=== PATIENT | female | born 1955 | race Two or more races ===

== ENCOUNTER → 2017-10-09 | Outpatient (CLI) | payer OTHER ==
[2017-10-09 07:42] LABS: ANION GAP 10 MEQ/L (8-16); BLOOD UREA NITROGEN 21 MG/DL (7-18); CALCIUM LEVEL 9.2 MG/DL (8.8-10.2); CARBON DIOXIDE LEVEL 29 MEQ/L (21-32); CHLORIDE LEVEL 105 MEQ/L (98-107); CREATININE FOR GFR 0.92 MG/DL (0.55-1.30); GLOMERULAR FILTRATION RATE > 60.0 (>45); GLUCOSE, FASTING 133 MG/DL (70-100); POTASSIUM SERUM 3.3 MEQ/L (3.5-5.1); SODIUM LEVEL 144 MEQ/L (136-145)
[2017-10-09 08:53] LABS: ESTIMATED AVERAGE GLUCOSE 131 MG/DL (60-110); HEMOGLOBIN A1c 6.2 %
== END ==
LOC: M LAB 06:09
DX: Z13.1 Encounter for screening for diabetes mellitus (principal); I10 Essential (primary) hypertension
CPT/HCPCS: 83036

== ENCOUNTER → 2017-10-12 | Outpatient (CLI) | payer OTHER ==
[2017-10-12 20:50] LABS: ANION GAP 10 MEQ/L (8-16); BLOOD UREA NITROGEN 20 MG/DL (7-18); CALCIUM LEVEL 8.6 MG/DL (8.8-10.2); CARBON DIOXIDE LEVEL 29 MEQ/L (21-32); CHLORIDE LEVEL 103 MEQ/L (98-107); CREATININE FOR GFR 0.87 MG/DL (0.55-1.30); GLOMERULAR FILTRATION RATE > 60.0 (>45); GLUCOSE, FASTING 96 MG/DL (70-100); POTASSIUM SERUM 3.6 MEQ/L (3.5-5.1); SODIUM LEVEL 142 MEQ/L (136-145)
== END ==
LOC: M LAB 19:37
DX: E87.6 Hypokalemia (principal)
CPT/HCPCS: 80048

== ENCOUNTER → 2018-07-06 | Outpatient (REF) | payer OTHER | LOC: M LAB REF 13:14 | PROVIDERS: ATTEND Physician Assistant Medical | DX: L02.31 Cutaneous abscess of buttock (principal) ==

== ENCOUNTER → 2018-07-07 | Outpatient (CLI) | payer OTHER ==
[2018-07-07 17:36] LABS: BLOOD UREA NITROGEN 23 MG/DL (7-18); CALCIUM LEVEL 8.7 MG/DL (8.8-10.2); CARBON DIOXIDE LEVEL 30 MEQ/L (21-32); CHLORIDE LEVEL 104 MEQ/L (98-107); CHOLESTEROL LEVEL 210 MG/DL (<200); CHOLESTEROL RISK RATIO 4.375 (<5); CREATININE FOR GFR 0.88 MG/DL (0.55-1.30); GLOMERULAR FILTRATION RATE > 60.0 (>45); GLUCOSE, FASTING 126 MG/DL (70-100); HDL CHOLESTEROL 48 MG/DL (>40); LDL CHOLESTEROL 123 MG/DL (<100); NON-HDL-C 162 MG/DL; POTASSIUM SERUM 3.9 MEQ/L (3.5-5.1); SODIUM LEVEL 140 MEQ/L (136-145); TRIGLYCERIDES LEVEL 196 MG/DL (<150)
[2018-07-07 17:44] LABS: HEMOGLOBIN A1c 6.3 %
== END ==
LOC: M WUC 08:30
PROVIDERS: ATTEND Family Medicine
DX: I10 Essential (primary) hypertension (principal); R73.03 Prediabetes

== ENCOUNTER → 2019-01-26 | Outpatient (CLI) | payer OTHER ==
[2019-01-26 14:45] LABS: BLOOD UREA NITROGEN 17 MG/DL (7-18); CALCIUM LEVEL 9.1 MG/DL (8.8-10.2); CARBON DIOXIDE LEVEL 28 MEQ/L (21-32); CHLORIDE LEVEL 106 MEQ/L (98-107); CREATININE FOR GFR 0.88 MG/DL (0.55-1.30); GLOMERULAR FILTRATION RATE > 60.0 (>45); GLUCOSE, FASTING 86 MG/DL (70-100); POTASSIUM SERUM 3.6 MEQ/L (3.5-5.1); SODIUM LEVEL 142 MEQ/L (136-145)
[2019-01-26 17:43] LABS: CREATININE, URINE 63.7 MG/DL; MALB URINE SIEMENS 13.1 MG/L; MAU/CREAT RATIO 20.5 MCG/MG (0.0-30.0)
== END ==
LOC: M LAB 13:57
PROVIDERS: ATTEND Family Medicine
DX: I10 Essential (primary) hypertension (principal)

== ENCOUNTER → 2020-01-24 | Outpatient (CLI) | payer OTHER ==
[2020-01-24 10:52] LABS: BLOOD UREA NITROGEN 19 MG/DL (7-18); CALCIUM LEVEL 9.6 MG/DL (8.8-10.2); CARBON DIOXIDE LEVEL 29 MEQ/L (21-32); CHLORIDE LEVEL 106 MEQ/L (98-107); CHOLESTEROL LEVEL 200 MG/DL (<200); CHOLESTEROL RISK RATIO 4.081 (<5); CREATININE FOR GFR 0.82 MG/DL (0.55-1.30); GLOMERULAR FILTRATION RATE > 60.0 (>45); GLUCOSE, FASTING 113 MG/DL (70-100); HDL CHOLESTEROL 49 MG/DL (>40); LDL CHOLESTEROL 116 MG/DL (<100); NON-HDL-C 151 MG/DL; POTASSIUM SERUM 3.8 MEQ/L (3.5-5.1); SODIUM LEVEL 139 MEQ/L (136-145); TRIGLYCERIDES LEVEL 173 MG/DL (<150)
[2020-01-24 10:55] LABS: HEMOGLOBIN A1c 6.3 %
== END ==
LOC: M LAB 09:29
PROVIDERS: ATTEND Family Medicine
DX: E78.2 Mixed hyperlipidemia (principal); R73.03 Prediabetes; I10 Essential (primary) hypertension

== ENCOUNTER → 2020-02-23 | Outpatient (CLI) | payer OTHER ==
--- NOTE | 2020-02-23 08:17 | PFTRPT ---
Height: 66.00 Inches Weight: 240.00 Lbs BSA: 2.16 Diagnosis: F17.210 DATE: 02/23/2020 ORDERING PHYSICIAN: Dr. Vijaya Good Pre and post bronchodilator studies have excellent technical quality. Forced vital capacity is normal. FEV1 is in proportion, obstructive index is therefore normal. Expiratory limit within the flow-volume loop is normal. No significant bronchodilator response is identified. Total lung capacity is normal. Residual volume is in proportion. Diffusing capacity is normal. No hemoglobin available for correction. Airway resistance and conductance are normal. IMPRESSION: Normal study. MTDD
== END ==
LOC: M CARPUL 07:34
PROVIDERS: ATTEND Family Medicine
DX: F17.210 Nicotine dependence, cigarettes, uncomplicated (principal)

== ENCOUNTER → 2020-04-17 | Outpatient (REF) ==
[~2020-04-17] MED LIST: ASPI81TA26 PO; FELO10TA28 PO; OMEG1CAP4 PO; TERA5CAP3 PO; VALS320T3 PO; VITMTA PO
== END ==
LOC: M EMP 14:39
PROVIDERS: ATTEND Pediatrics
DX: Z20.828 Contact with and (suspected) exposure to other viral communicable diseases (principal)

== ENCOUNTER 2020-04-23 04:47 | Inpatient (IN) | payer OTHER ==
[~2020-04-23] VITALS: Ht 170.2 cm; Wt 118.3 kg
[2020-04-23 05:45] LABS: BASO % 0.2 % (0.0-1.0); EOS # 0.1 10^3/uL (0.0-0.5); EOS % 0.3 % (0.0-3.0); HEMATOCRIT 40.9 % (36.0-47.0); HEMOGLOBIN 12.7 g/dl (12.0-15.5); LYMPH # 1.1 10^3/uL (1.5-5.0); LYMPH % 6.1 % (24.0-44.0); MEAN CORPUSCULAR HEMOGLOBIN 27.3 pg (27.0-33.0); MEAN CORPUSCULAR HGB CONC 31.1 g/dl (32.0-36.5); MONO # 1.2 10^3/uL (0.0-0.8); MONO % 6.5 % (0.0-5.0); NEUTROPHILS # 16.2 10^3/uL (1.5-8.5); NEUTROPHILS % 86.3 % (36.0-66.0); PLATELET COUNT, AUTOMATED 351 10^3/uL (150-450); RED BLOOD COUNT 4.65 10^6/uL (4.00-5.40); WHITE BLOOD COUNT 18.8 10^3/uL (4.0-10.0)
[2020-04-23] MEDS ORDERED: MORPHINE 4 MG/ML 1ML VIAL/SYRINGE (J2270) IV PRN (05:45)
[2020-04-23] MEDS ORDERED: ONDANSETRON 4MG/2ML VIAL IV ONE (05:45)
[2020-04-23 06:23] LABS: BLOOD UREA NITROGEN 17 MG/DL (7-18); CALCIUM LEVEL 8.9 MG/DL (8.8-10.2); CARBON DIOXIDE LEVEL 28 MEQ/L (21-32); CHLORIDE LEVEL 100 MEQ/L (98-107); CK-MB VALUE MASS < 1.0 NG/ML (<3.6); CPK CREATINE PHOSPHOKINASE 44 U/L (26-192); CREATININE FOR GFR 0.85 MG/DL (0.55-1.30); GLOMERULAR FILTRATION RATE > 60.0 (>45); GLUCOSE, FASTING 171 MG/DL (70-100); MB/CK RELATIVE INDEX 2.27 (< OR =4); NT-PRO BNP 636 PG/ML (<125); POTASSIUM SERUM 3.4 MEQ/L (3.5-5.1); SODIUM LEVEL 137 MEQ/L (136-145); TROPONIN I < 0.02 NG/ML (< 0.10)
[2020-04-23 06:28] LABS: RSV AMPLIFICATION NEGATIVE (NEGATIVE)
[2020-04-23] MEDS ORDERED: HYDROMORPHONE HCL 0.5 MG/ 0.5 ML SYRINGE (J1170 PER 1) IV ONE (07:00)
[2020-04-23] MEDS ORDERED: ISOVUE-370 76% 100ML VIAL As Ordered ONE (07:00)
--- NOTE | 2020-04-23 07:38 | REPVR ---
PROCEDURE INFORMATION: Exam: XR Chest, 1 View Exam date and time: 04/23/2020 6:47 AM Age: 65 years old Clinical indication: Left-sided chest pain; Patient HX: Pain upon movement , or deep breath times 2 days TECHNIQUE: Imaging protocol: XR of the chest Views: 1 view. COMPARISON: No relevant prior studies available. FINDINGS: Limitations: Multiple EKG leads are superimposed on the chest. Lungs: There is focal consolidation in the left lung base, consistent with pneumonia but extensive atelectasis or large pulmonary infarct could be considered. Pleural space: Given the symptoms, pleural fluid is not excluded on the left and could be assessed with decubitus views or CT. CTA may be appropriate if there are findings suspicious for embolism. Heart/Mediastinum: The heart demonstrates moderate diffuse enlargement. There is superior mediastinal widening suspicious for fluid overload but may reflect vascular tortuosity with no prior studies for comparison. Vasculature: The vasculature demonstrates diffuse moderate atherosclerotic calcification. Bones/joints: Unremarkable. IMPRESSION: 1. There is focal consolidation in the left lung base, consistent with pneumonia but extensive atelectasis or large pulmonary infarct could be considered. 2. There is superior mediastinal widening suspicious for fluid overload but may reflect vascular tortuosity with no prior studies for comparison. 3. Given the symptoms, pleural fluid is not excluded on the left and could be assessed with decubitus views or CT. CTA may be appropriate if there are findings suspicious for embolism. Electronically signed by: Adrian Sewell On 04/23/2020 07:38:17 AM
[2020-04-23] MEDS ORDERED: TERA5CAP3 PO (07:41)
[2020-04-23] MEDS ORDERED: VALS320T3 PO (07:41)
[2020-04-23] MEDS ORDERED: OMEG1CAP4 PO (07:41)
[2020-04-23] MEDS ORDERED: FELO10TA28 PO (07:41)
--- NOTE | 2020-04-23 08:27 | REP ---
INDICATION: SOB COMPARISON: None. TECHNIQUE: Axial contrast enhanced images from the thoracic inlet to the upper abdomen using pulmonary embolus technique with multiplanar re-formations. 75 ml Isovue 370 intravenous contrast material administered without complication. This CT examination was performed using the following dose reduction techniques: Automated exposure control, adjustment of mA and/or kv according to the patient's size, and use of iterative reconstruction technique. FINDINGS: Satisfactory enhancement of the pulmonary vasculature is achieved and no filling defects are identified to suggest pulmonary embolus. Small lower lobe consolidations (left greater than right) along with small left pleural effusion and scattered basilar atelectasis are identified as well as elements of pulmonary vascular congestion. No pneumothorax. Tracheobronchial tree is patent. Evaluation of the mediastinum demonstrates extensive atherosclerotic changes to the thoracic aorta and coronary arteries without aortic aneurysm or dissection. Moderate cardiomegaly is suggested without pericardial effusion. No significant adenopathy. Hiatal hernia noted. Musculoskeletal structures demonstrate age-related changes without acute osseous abnormality. IMPRESSION: 1. No evidence for pulmonary embolus. 2. Small to moderate areas of basilar consolidation (left greater than right) along with small pleural effusion and scattered atelectasis. Evidence for pulmonary vascular suggestion. Differential diagnosis includes pneumonia and early CHF. <Electronically signed by Wu Alvarez > 04/23/20 [id number]
[2020-04-23] MEDS ORDERED: VITMTA PO (08:49)
[2020-04-23] MEDS ORDERED: ASPI81TA26 PO (08:49)
[2020-04-23] MEDS: hydroCHLOROthiazide 25 MG TAB PO SCH (09:00)
[2020-04-23] MEDS: VALSARTAN 80 MG TAB (DIOVAN) PO SCH (09:00)
[2020-04-23] MEDS ORDERED: AZITHROMYCIN INJ 500 MG, VIAL MATE ADAPTER 1 EACH in D5W 250 ML IV SCH (10:00)
[2020-04-23] MEDS ORDERED: POTASSIUM CHLORIDE 10 MEQ SR TABLET PO ONE (10:00)
[2020-04-23] MEDS ORDERED: FUROSEMIDE 40MG/4ML VIAL (J1940) IV ONE (10:00)
[2020-04-23 10:27] VITALS: BP 109/65
[2020-04-23] MEDS: PERCOCET 5MG/325MG TAB PO PRN (10:31)
[2020-04-23] MEDS: MORPHINE 2 MG/ML 1ML VIAL (J2270) IV PRN ×2 (11:31→21:44)
--- NOTE | 2020-04-23 12:27 | HPEPDOC ---
General Date of Admission Apr 23, 2020 at 09:26 Date of Service: Apr 23, 2020 Attending Physician: GEMA CHAUHAN DO Chief Complaint The patient is a 65-year-old female admitted with a reason for visit of Intractable Pain Shortness Of Breath. Source: Patient History of Present Illness Mrs. Nicholson is a 65 year old female with HTN, tobacco use, and anxiety who is here with intractable left sided pain causing dyspnea. Symptoms started a couple of days prior. She was going to wash the dishes when she suddenly had sharp 10/10 left sided pain. Pain located under the axilla and back and radiated up towards shoulder/neck and down leg. Denies weakness. Pain worse with breathing, moving, or pressing on left side. She tried taking Tylenol and Ibuprofen, but it did not help with the pain. Nothing made the pain better except for Dilaudid she received in the ED. Even with the Dilaudid, the pain was 5 out of 10. She denies ever having this kind of pain before. Denies any trauma. She reports receiving Shingrx 2 years prior. On 04/17/2020, she tested negative for COVID, but the reported temperature of 101.5 degrees Fahrenheit. Workup in the ED was significant for a leukocytosis of 18.8. CT angiogram of chest was negative for PE but did demonstrate small to moderate bibasilar consolidation as well as pulmonary vascular congestion. Troponin was negative. EKG suggestive of old infarct in the inferior leads. I spoke with the patient, she denied any heart or lung history. Home Medications Scheduled Aspirin (Aspirin EC) 81 Mg Tablet.dr, 81 MG PO DAILY, (Reported) Felodipine (Felodipine ER) 10 Mg Tab.er.24h, 10 MG PO DAILY, (Reported) Multivitamins (Thera M Plus Tablet) 1 Each Tablet, 1 TAB PO DAILY, (Reported) Lehighton-3 Acid Ethyl Esters (Le[place]ighton-3 Acid Ethyl Esters) 1 Gm Capsule, 2 GM PO DAILY, (Reported) Terazosin HCl (Terazosin HCl) 5 Mg Capsule, 5 MG PO QHS, (Reported) Valsartan/Hydrochlorothiazide (Valsartan-Hctz 320-25 mg Tab) 1 Each Tablet, 1 TAB PO DAILY, (Reported) Allergies Coded Allergies: Penicillins (Verified Allergy, Intermediate, RASH, HIVES, 04/12/20) Sulfa (Sulfonamide Antibiotics) (Verified Allergy, Intermediate, RASH, 04/12/20) Past Medical History Medical History 1. Anxiety 2. Hypertension 3. Prediabetes 4. Tobacco use Surgical History 1. Appendectomy in 1975 2. Laminectomy in 2002 4. Colonoscopy in 2018 Family History Father: at the age of 65, of [place] Mother: . History of adenocarcinoma of the rectum Social History * Smoker: current smoker (smoked for more than 20 years, 1 pack per day) Alcohol: occationally (once a month, last drink 04/22/2020, 1/2 oz Vodka) Drugs: denies A-FIB/CHADSVASC A-FIB History Current/History of A-Fib/PAF?: No Review of Systems Constitutional: Denies: Chills, Fever Eyes: Denies: Vision change ENT: Reports: Head Aches Skin: Denies: Rash Pulmonary: Reports: Dyspnea, Pleuritic Chest Pain Cardiovascular: Reports: Other Symptoms (Sharp chest pain on left side) Gastrointestinal: Denies: Nausea, Abdominal Pain Genitourinary: Denies: Dysuria Hematologic: Denies: Bruising Musculoskeletal: Reports: Back Pain (Left side) Psych: Reports: Anxiety Physical Examination General Exam: Positive: Cooperative, Moderate Distress Eye Exam: Positive: EOMI; Negative: Sclera icteric ENT Exam: Positive: Atraumatic Neck Exam: Positive: Supple Chest Exam: Positive: Diminished Heart Exam: Positive: Rate Normal, Regular Rhythm Abdomen Exam: Positive: Normal bowel sounds, Soft; Negative: Tenderness Extremity Exam: Positive: Edema (mild bilateral pitting) Skin Exam: Positive: Nl turgor and temperature Neuro Exam: Positive: Cranial Nerves 3-12 NL Psych Exam: Positive: Anxiety Vital Signs Vital Signs Date Time Temp Pulse Resp B/P (MAP) Pulse Ox O2 Delivery O2 Flow Rate FiO2 04/23/20 10:31 20 04/23/20 10:27 80 109/65 (80) 95 Nasal Cannula 2.0 04/23/20 10:00 97.9 Laboratory Data Labs 24H Laboratory Tests 2 04/23/20 05:21: Immature Granulocyte % (Auto) 0.6, Neutrophils (%) (Auto) 86.3H, Lymphocytes (%) (Auto) 6.1L, Monocytes (%) (Auto) 6.5H, Eosinophils (%) (Auto) 0.3, Basophils (%) (Auto) 0.2, Neutrophils # (Auto) 16.2H, Lymphocytes # (Auto) 1.1L, Monocytes # (Auto) 1.2H, Eosinophils # (Auto) 0.1, Basophils # (Auto) 0.0, Nucleated Red Blood Cells % (auto) 0.0, Anion Gap 9, Glomerular Filtration Rate > 60.0, Calcium Level 8.9, Total Creatine Kinase 44, Creatine Kinase MB < 1.0, Creatine Kinase MB Relative Index 2.27, Troponin I < 0.02, ZU-Qfm-X-Type Natriuretic Peptide 636H, Coronavirus (COVID-19)(PCR) NEGATIVE, Influenza Type A (RT-PCR) NEGATIVE, Influenza Type B (RT-PCR) NEGATIVE, Respiratory Syncytial Virus (PCR) NEGATIVE 04/23/20 10:33: CBC/BMP Laboratory Tests 04/23/20 05:21 Assessment/Plan Mrs. Nicholson is a 65 year old female with HTN, tobacco use, and anxiety who is here with intractable left pleuritic chest pain. She does have leukocytosis and signs of consolidation in the lung and this may be from pneumonia, but some of the pain is musculoskeletal. No mention of fracture on Chest CT or XR. Continue to monitor. Otherwise EKG suggestive of old inferior infarct and these are early signs of CHF. Will order echocardiogram to evaluate. Plan / VTE VTE Prophylaxis Ordered?: Yes Plan Plan 1. Intractable left chest/side/back pain Unclear etiology, but sharp and reproducible, also pleuritic Worse with breathing and moving CT chest and chest x-ray does not demonstrate any fractures May be secondary to pneumonia but there appears to be a musculoskeletal component to it Pain control with as needed Percocet and as needed morphine 2. Community acquired pneumonia Negative for COVID Bibasilar consolidation and leukocytosis of 18 Rocephin and azithromycin 3. Early CHF EKG demonstrates old infarct in inferior leads Troponin negative Echocardiogram ordered Blood pressure soft, may be secondary to pain medications. 4. Hypertension Placed holding parameters on valsartan and chlorothiazide Also on terazosin which may contribute to hypertension 5. DVT prophylaxis Lovenox subcutaneous GEMA CHAUHAN DO Apr 23, 2020 10:59
[2020-04-23] MEDS: LACTOBACILLUS ACIDOPHILUS CAP (BACID) PO SCH (12:42)
[2020-04-23] MEDS: ASPIRIN 81 MG ENTERIC TAB PO SCH (12:42)
[2020-04-23] MEDS: MULTIVITAMINS/MINERALS THERAP 1 TAB PO SCH (12:43)
[2020-04-23 13:04] LABS: TROPONIN I < 0.02 NG/ML (< 0.10)
[2020-04-23 14:00] VITALS: BP 103/61
[2020-04-23] MEDS ORDERED: HYDROMORPHONE HCL 0.5 MG/ 0.5 ML SYRINGE (J1170 PER 1) IV PRN (15:00)
[2020-04-23] MEDS: cefTRIAXone SOD 1 GM in D5W MINI-BAG PLUS 50 ML IV SCH (15:30)
[2020-04-23] MEDS: HYDROmorphone HCL 2 MG/ML 1ML VIAL (J1170) IV PRN ×2 (15:31→18:39)
[2020-04-23] MEDS: ONDANSETRON 4MG/2ML VIAL IV PRN (15:48)
[2020-04-23 16:08] LABS: ALBUMIN 2.6 GM/DL (3.2-5.2); ALT/SGPT 13 U/L (12-78); BILIRUBIN,DIRECT 0.4 MG/DL (0.0-0.2); BILIRUBIN,TOTAL 0.8 MG/DL (0.2-1.0); TOTAL PROTEIN 6.4 GM/DL (6.4-8.2)
[2020-04-23] MEDS: TERAZOSIN 5 MG CAP PO SCH (20:34)
[2020-04-23 22:00] VITALS: BP 101/61; O2SAT 95
[2020-04-24] MEDS ORDERED: NORCO, ANEXSIA 5/325MG TABLET (HYDROcodone/ACETAMINOPHEN) PO ONE (00:45)
[2020-04-24] MEDS: PERCOCET 5MG/325MG TAB PO PRN ×4 (03:13→19:58)
[2020-04-24 06:00] VITALS: BP 100/54
[2020-04-24 07:02] LABS: HEMATOCRIT 39.6 % (36.0-47.0); HEMOGLOBIN 12.5 g/dl (12.0-15.5); MEAN CORPUSCULAR HEMOGLOBIN 28.7 pg (27.0-33.0); MEAN CORPUSCULAR HGB CONC 31.6 g/dl (32.0-36.5); PLATELET COUNT, AUTOMATED 331 10^3/uL (150-450); RED BLOOD COUNT 4.35 10^6/uL (4.00-5.40); WHITE BLOOD COUNT 24.3 10^3/uL (4.0-10.0)
[2020-04-24 07:29] LABS: CALCIUM LEVEL 8.6 MG/DL (8.8-10.2); CREATININE FOR GFR 2.2 MG/DL (0.55-1.30); POTASSIUM SERUM 4.1 MEQ/L (3.5-5.1)
[2020-04-24] MEDS: hydroCHLOROthiazide 25 MG TAB PO SCH (09:00)
[2020-04-24] MEDS: VALSARTAN 80 MG TAB (DIOVAN) PO SCH (09:00)
[2020-04-24] MEDS ORDERED: ENOXAPARIN 40MG/0.4ML SYRINGE (J1650 PER 10MG) SC SCH (09:00)
[2020-04-24] MEDS ORDERED: NS 500 ML IV ONE (09:15)
--- NOTE | 2020-04-24 09:15 | ECGEPIP ---
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
[2020-04-24] MEDS: LACTOBACILLUS ACIDOPHILUS CAP (BACID) PO SCH (09:54)
[2020-04-24] MEDS: MULTIVITAMINS/MINERALS THERAP 1 TAB PO SCH (09:54)
[2020-04-24] MEDS: ASPIRIN 81 MG ENTERIC TAB PO SCH (09:54)
[2020-04-24] MEDS: NS 1,000 ML IV SCH ×2 (09:55→22:27)
--- NOTE | 2020-04-24 09:56 | REP ---
INDICATION: MARCIE COMPARISON: None TECHNIQUE: Real time bella scale ultrasound examination using curved array transducer. FINDINGS: The right kidney is normal in reniform shape with increased central sinus fat and measures 10.3 x 5.5 x 5.5 cm. Moderate hydronephrosis and proximal hydroureter noted without obvious nephrolithiasis. No cystic/renal mass or perinephric fluid. The left kidney is normal in reniform shape with increased central sinus fat and measures 12.8 x 5.4 x 6.0 cm. No hydronephrosis, nephrolithiasis, cystic/renal mass, or perinephric fluid noted. IMPRESSION: 1. Moderate right hydronephrosis. <Electronically signed by Wu Alvarez > 04/24/20 0953
--- NOTE | 2020-04-24 11:06 | REP ---
INDICATION: examine spleen, splenic infarct? COMPARISON: None. TECHNIQUE: Real time bella scale ultrasound examination using curved array transducer. FINDINGS: Spleen measures 11.6 x 4.8 x 11.2 cm (splenic index: 624) without focal splenic lesion or perisplenic stranding identified. No left upper quadrant free fluid identified. IMPRESSION: Splenomegaly without focal splenic lesion. <Electronically signed by Wu Alvarez > 04/24/20 1107
--- NOTE | 2020-04-24 11:47 | REP ---
INDICATION: dyspnea COMPARISON: 04/23/2020 TECHNIQUE: Portable AP view of the chest FINDINGS: Moderate to large left pleural effusion with underlying airspace disease appears increased from prior examination. Stable small right pleural effusion and right basilar atelectasis again noted and unchanged. No pneumothorax. IMPRESSION: Moderate to large left pleural effusion and underlying airspace disease increased from prior examination. <Electronically signed by Wu Alvarez > 04/24/20 1147
[2020-04-24] MEDS: cefTRIAXone SOD 1 GM in D5W MINI-BAG PLUS 50 ML IV SCH (11:54)
[2020-04-24 12:15] VITALS: O2SAT 96
[2020-04-24 14:00] VITALS: BP 105/58
[2020-04-24 14:47] LABS: OSMOLALITY URINE 310 MOSM/KG (500-800)
[2020-04-24 14:50] LABS: APPEARANCE, URINE CLOUDY (CLEAR); BACTERIA, URINE AUTO 1+ (NEGATIVE); BILIRUBIN, URINE AUTO NEGATIVE (NEGATIVE); BLOOD, URINE BLOOD NEGATIVE (NEGATIVE); COLOR, URINE AMBER (YELLOW); GLUCOSE, URINE (UA) AUTO NEGATIVE (NEGATIVE); KETONE, URINE AUTO NEGATIVE (NEGATIVE); LEUKOCYTE ESTERASE, URINE AUTO 2+ (NEGATIVE); MUCUS, URINE SMALL (NEGATIVE); NITRITE, URINE AUTO NEGATIVE (NEGATIVE); PROTEIN, URINE AUTO NEGATIVE (NEGATIVE); RBC, URINE AUTO 2 /HPF (0-3); SPECIFIC GRAVITY URINE AUTO 1.023 (1.002-1.035); SQUAMOUS EPITHELIAL CELL UR AU 3 /HPF (0-6); UROBILINOGEN, URINE AUTO 0.2 mg/dL (0.0-2.0); WBC, URINE AUTO 30 /HPF (0-3)
[2020-04-24 15:14] LABS: SODIUM,RANDOM URINE < 10 MEQ/L
--- NOTE | 2020-04-24 18:43 | IPNPDOC ---
Subjective Date Seen The patient was seen on 04/24/20. Subjective Chief Complaint/HPI Mrs. Nicholson is a 65 year old female with HTN, tobacco use, and anxiety who is here with intractable left sided pain causing dyspnea. Yesterday afternoon, the pain was severe and not controlled with Percocet or morphine. Started her on Dilaudid. Overnight, she did not tolerate the Dilaudid well as it made her nauseous. This morning she was still having pain. She was agreeable to going back to the Percocet at a more frequent dosing. Pain is still sharp, starting from the back and radiating around to the front. Does not radiate up or down the back. Reproducible with palpitation and worse with deep breathing. It appears that it may go down a dermatome. It is also located to where the spleen may be. She was not able to lay flat for CT abd/pelvis due to pain and cannot order IV contrast due to MARCIE. Otherwise poor oral intake secondary to pain may have contributed to MARCIE. Objective Physical Examination General Exam: Positive: Cooperative, Mild Distress Eye Exam: Positive: EOMI; Negative: Sclera icteric ENT Exam: Positive: Atraumatic Neck Exam: Positive: Supple Chest Exam: Positive: Diminished Heart Exam: Positive: Rate Normal, Regular Rhythm Abdomen Exam: Positive: Normal bowel sounds, Soft; Negative: Tenderness Skin Exam: Positive: Nl turgor and temperature Neuro Exam: Positive: Cranial Nerves 3-12 NL Psych Exam: Positive: Anxiety Assessment /Plan Assessment Mrs. Nicholson is a 65 year old female with HTN, tobacco use, and anxiety who is here with intractable pain. Pain is unilateral and radiates from left back and around to left front. It may follow a dermatome. She could have acute neuritis Shingles, but there are no skin lesions. She did have Shingrx about 2 years ago. Other considerations is pleurisy from pneumonia. CTA of chest did not demonstrate infarct and lactic acid is normal. The location of the pain is were the spleen would be located. Ordered US abd for spleen as she cannot lay down or have IV contrast. No sign of lesions is US abd for spleen. Troponin neg x2 and imaging did not demonstrate fracture. Otherwise EKG suggestive of old inferior infarct and these are early signs of CHF. Will order echocardiogram to evaluate. Plan/VTE VTE Prophylaxis Ordered?: Yes Plan 1. Intractable left chest/side/back pain Unclear etiology, but sharp and reproducible, also pleuritic Worse with breathing and moving CT chest and chest x-ray does not demonstrate any fractures May be secondary to pneumonia but there appears to be a musculoskeletal component to it. Considering acute neuritis from shingles as it follows a dermatome, but there is no rash and she has been vaccinated (shingrx). Considering splenic infarction, but unable to do CT abd/pelvis with IV contrast due to MARCIE. Pain control with as needed Percocet and as needed morphine. Dilaudid makes her nauseous 2. Community acquired pneumonia Negative for COVID Bibasilar consolidation and leukocytosis of 18 on admission Rocephin -Azithromycin held for concern of possible AIN 3. Acute kidney injury -Creatinine increased from 0.85 to 2.20 -Poor oral intake due to pain -FeNa 0.1% (used urine sodium of 10. Lab reported <10 for urine sodium) -Most likely a combination of contrast induced nephropathy and poor oral intake -IVF 4. Early CHF EKG demonstrates old infarct in inferior leads Troponin negative Echocardiogram ordered Blood pressure soft, may be secondary to pain medications. 5. Hypertension Placed holding parameters on valsartan and chlorothiazide Also on terazosin which may contribute to hypertension 6. DVT prophylaxis Discontinue Lovenox due to MARCIE. Hold anticoagulation today and start heparin subQ tomorrow VS, I&O, 24H, Fishbone Vital Signs/I&O Vital Signs Date Time Temp Pulse Resp B/P (MAP) Pulse Ox O2 Delivery O2 Flow Rate FiO2 04/24/20 15:09 17 04/24/20 12:15 96 Nasal Cannula 2.0 04/24/20 09:00 108/60 04/24/20 06:00 98.7 88 I&O- Last 24 Hours up to 6 AM 04/24/20 06:00 Intake Total 1265 ml Output Total 350 ml Balance 915 ml Laboratory Data 24H LABS Laboratory Tests 2 04/24/20 06:49: Nucleated Red Blood Cells % (auto) 0.0, Anion Gap 8, Glomerular Filtration Rate 24.0L, Calcium Level 8.6L 04/24/20 10:21: Lactic Acid Level 0.8 04/24/20 14:27: Urine Color HELGA, Urine Appearance CLOUDYH, Urine pH 5.0, Urine Specific [place] 1.023, Urine Protein NEGATIVE, Urine Glucose (Auto)(UA) NEGATIVE, Urine Ketones (Auto) NEGATIVE, Urine Blood NEGATIVE, Urine Nitrite NEGATIVE, Urine Bilirubin NEGATIVE, Urine Urobilinogen 0.2, Urine Leukocyte Esterase (Auto) 2+H, Urine WBC (Auto) 30H, Urine RBC (Auto) 2, Urine Hyaline Casts (Auto) 0, Urine Bacteria (Auto) 1+H, Urine Squamous Epithelial Cells 3, Urine Mucus (Auto) SMALL, Urine Sperm (Auto) , Urine Random Osmolality 310L, Urine Random Creatinine 146.0, Urine Random Sodium < 10 CBC/BMP Laboratory Tests 04/24/20 06:49 Microbiology Microbiology 04/23/20 Blood Culture - Preliminary, Resulted No growth after 24 hours . All specim... 04/23/20 Blood Culture - Preliminary, Resulted No growth after 24 hours . All specim... GEMA CHAUHAN DO Apr 24, 2020 15:54
[2020-04-24] MEDS: TERAZOSIN 5 MG CAP PO SCH (19:48)
[2020-04-24 20:54] VITALS: O2SAT 90
[2020-04-24 22:00] VITALS: BP 104/57
[2020-04-25] MEDS: PERCOCET 5MG/325MG TAB PO PRN ×4 (03:48→17:09)
[2020-04-25] MEDS ORDERED: RIVAROXABAN 20 MG TAB (XARELTO) PO ONE (05:45)
[2020-04-25] MEDS ORDERED: METOPROLOL TART 25 MG TABLET PO ONE (05:45)
[2020-04-25 06:00] VITALS: BP 100/53
[2020-04-25] MEDS ORDERED: NS 500 ML IV ONE ×4 (06:00→16:30)
[2020-04-25] MEDS: LACTOBACILLUS ACIDOPHILUS CAP (BACID) PO SCH (08:15)
[2020-04-25] MEDS: MULTIVITAMINS/MINERALS THERAP 1 TAB PO SCH (08:15)
[2020-04-25] MEDS: ASPIRIN 81 MG ENTERIC TAB PO SCH (08:15)
[2020-04-25] MEDS: VALSARTAN 80 MG TAB (DIOVAN) PO SCH (08:16)
[2020-04-25] MEDS: hydroCHLOROthiazide 25 MG TAB PO SCH (08:17)
[2020-04-25] MEDS ORDERED: METOPROLOL TART 12.5 MG PER 1/2 TAB PO SCH (09:00)
[2020-04-25] MEDS: NS 1,000 ML IV SCH (09:12)
[2020-04-25 09:18] LABS: BASO % 0.2 % (0.0-1.0); EOS # 0.2 10^3/uL (0.0-0.5); EOS % 1.1 % (0.0-3.0); HEMATOCRIT 37.1 % (36.0-47.0); HEMOGLOBIN 11.7 g/dl (12.0-15.5); LYMPH # 1.2 10^3/uL (1.5-5.0); LYMPH % 6.1 % (24.0-44.0); MEAN CORPUSCULAR HEMOGLOBIN 28.8 pg (27.0-33.0); MEAN CORPUSCULAR HGB CONC 31.5 g/dl (32.0-36.5); MEAN CORPUSCULAR VOLUME 91.4 fl (80.0-96.0); MONO # 1.7 10^3/uL (0.0-0.8); MONO % 8.5 % (0.0-5.0); NEUTROPHILS # 16.4 10^3/uL (1.5-8.5); NEUTROPHILS % 83.3 % (36.0-66.0); PLATELET COUNT, AUTOMATED 361 10^3/uL (150-450); RED BLOOD COUNT 4.06 10^6/uL (4.00-5.40); WHITE BLOOD COUNT 19.7 10^3/uL (4.0-10.0)
[2020-04-25 09:52] LABS: CALCIUM LEVEL 8.3 MG/DL (8.8-10.2); CREATININE FOR GFR 1.09 MG/DL (0.55-1.30); POTASSIUM SERUM 4.5 MEQ/L (3.5-5.1)
[2020-04-25 11:36] LABS: THYROID STIMULATING HORMONE 1.03 uIU/ML (0.358-3.740); TROPONIN I 0.11 NG/ML (< 0.10)
[2020-04-25] MEDS: cefTRIAXone SOD 1 GM in D5W MINI-BAG PLUS 50 ML IV SCH (11:57)
[2020-04-25 13:19] VITALS: O2SAT 95
--- NOTE | 2020-04-25 13:53 | ECGEPIP ---
[facility] Test Date: 2020-04-25 Pat Name: ZEHRA OH Department: Room: [place] [address] Gender: Female [employer]: [facility] : 1955 Requested By: ALYSSA Meyer PGY-2 Order Number: [id number] Reading MD: Andriy Arroyo Measurements Intervals [place] Rate: 106 P: [place]: 0 QRS: -23 QRSD: 108 T: -10 QT: 314 QTc: 418 Interpretive Statements Rhythm appears to be atrial fibrillation with a moderate ventricular response Left ventricular hypertrophy suggested Prior inferior wall myocardial infarction Nonspecific T-wave abnormalities Compared to prior tracing of 04/23/2020,atrial fibrillation is new Electronically Signed on 04-25-2020 13:53:53 EST by Andriy Arroyo
[2020-04-25 14:00] VITALS: BP 89/52
[2020-04-25 16:09] VITALS: BP 92/54
--- NOTE | 2020-04-25 17:56 | REP ---
INDICATION: Fluid overload vs worsening pneumonia COMPARISON: 04/23/2020, 04/24/2020 TECHNIQUE: PA and lateral. FINDINGS: Large left pleural effusion and left lower lobe consolidations have quickly and significantly increased when compared with 04/23/2020. Linear atelectasis in the right base noted. No pneumothorax. Evaluation of the mediastinum and cardiac silhouette is incompletely due to overlying opacities. Skeletal structures are intact. IMPRESSION: Large left pleural effusion with left lower lobe consolidations and right basilar atelectasis quickly and significantly increased from 04/23/2020. <Electronically signed by Wu Alvarez > 04/25/20 0558
[2020-04-25 18:00] VITALS: BP 100/70
[2020-04-25] MEDS ORDERED: RIVAROXABAN 20 MG TAB (XARELTO) PO SCH ×2 (18:00)
[2020-04-25 18:23] LABS: HEMATOCRIT 34.8 % (36.0-47.0); HEMOGLOBIN 10.9 g/dl (12.0-15.5); MEAN CORPUSCULAR HEMOGLOBIN 28.7 pg (27.0-33.0); MEAN CORPUSCULAR HGB CONC 31.3 g/dl (32.0-36.5); MEAN CORPUSCULAR VOLUME 91.6 fl (80.0-96.0); PLATELET COUNT, AUTOMATED 319 10^3/uL (150-450); WHITE BLOOD COUNT 16.3 10^3/uL (4.0-10.0)
[2020-04-25] MEDS: CEFEPIME HCL 2 GM in D5W MINI-BAG PLUS 50 ML IV SCH (19:06)
[2020-04-25] MEDS: VANCOMYCIN HCL 1,000 MG, VIAL MATE ADAPTER 1 EACH in D5W 250 ML IV SCH (19:57)
[2020-04-25 20:00] VITALS: BP 106/62
--- NOTE | 2020-04-25 22:03 | IPNPDOC ---
Subjective Date Seen The patient was seen on 04/25/20. Subjective Chief Complaint/HPI Mrs. Nicholson is a 65 year old female with HTN, tobacco use, and anxiety who is here with intractable left sided pain causing dyspnea. Overnight, she went into afib with RVR. Resolved with a 25mg PO Lopressor. She was scheduled for Lopressor 12.5mg BID, but blood pressure has been low. Required 500mg IV NS boluses today. Discontinued Lopressor as rate controlled. Increased coverage of antibiotics. This morning, touched base with pulmonary/critical care to have them look at CT angio. No PE and no pulmonary infarct. There was left lobe consolidation. There was also pleural effusion, but not large enough to tap. When I spoke with the patient this morning, she was still having significant pain, but felt that it was slightly better. Still in the same distribution. On the left side from the back and around to the front which may have been following a dermatome. Pain worse with breathing and palpation. No pain palpating upper thoracic left side or lower lumbar left side. Inbetween this area produced pain. Pain is sharp. She had not been able to sleep in bed or lay flat due to this pain. She has been sleeping leaning forward. Otherwise, this afternoon, because of another episode of hypotension and atrial fibrillation, transferred to PCU for closer monitoring. Ordered EKG and troponin. EKG demonstrated deep q waves in inferior leads which was similar to prior EKG. She has had an old inferior NH. Troponin trended downwards to 0.04, then 0.03. Ordered for stat Echocardiogram. Otherwise, when I saw her in PCU, she was able to lie down on an incline. She felt better in this position Objective Physical Examination General Exam: Positive: Cooperative, Mild Distress Eye Exam: Positive: EOMI; Negative: Sclera icteric ENT Exam: Positive: Atraumatic Neck Exam: Positive: Supple Chest Exam: Positive: Diminished Heart Exam: Positive: Rate Normal, Regular Rhythm Abdomen Exam: Positive: Normal bowel sounds, Soft; Negative: Tenderness Skin Exam: Positive: Nl turgor and temperature Neuro Exam: Positive: Cranial Nerves 3-12 NL Psych Exam: Positive: Anxiety Assessment /Plan Assessment Mrs. Nicholson is a 65 year old female with HTN, tobacco use, and anxiety who is here with intractable pain. Pain is unilateral and radiates from left back and around to left front. It may follow a dermatome. She could have acute neuritis Shingles, but there are no skin lesions. She did have Shingrx about 2 years ago. Other considerations is pleurisy from pneumonia. CTA of chest did not demonstrate infarct and lactic acid is normal. The location of the pain is were the spleen would be located. Ordered US abd for spleen as she cannot lay down or have IV contrast. No sign of lesions is US abd for spleen. Troponin neg x2 and imaging did not demonstrate fracture. Otherwise EKG suggestive of old inferior infarct and these are early signs of CHF. Now that she was able to lay flat on incline, will order stat echocardiogram. Plan/VTE VTE Prophylaxis Ordered?: Yes Plan 1. Intractable left chest/side/back pain Unclear etiology, but sharp and reproducible, also pleuritic Worse with breathing and moving CT chest and chest x-ray does not demonstrate any fractures May be secondary to pneumonia but there appears to be a musculoskeletal component to it. Considering acute neuritis from shingles as it follows a dermatome, but there is no rash and she has been vaccinated (shingrx). Considering splenic infarction, but unable to do CT abd/pelvis with IV contrast due to MARCIE. Pain control with as needed Percocet and as needed morphine. Dilaudid makes her nauseous 2. Community acquired pneumonia Negative for COVID Bibasilar consolidation and leukocytosis of 18 on admission Rocephin -Azithromycin held for concern of possible AIN 3. Acute kidney injury -Creatinine increased from 0.85 to 2.20 -Poor oral intake due to pain -FeNa 0.1% (used urine sodium of 10. Lab reported <10 for urine sodium) -Most likely a combination of contrast induced nephropathy and poor oral intake -IVF -Resolved 4. Early CHF EKG demonstrates old infarct in inferior leads Troponin negative Echocardiogram ordered stat, pending read 5. Hypertension Discontinued antihypertensive as hypotensive at this time 6. New onset atrial fibrillation -TSH and electrolytes within normal -Pending echocardiogram -Renal function improved, can consider digoxin as hypotensive -Xarelto for anticoagulation 7. DVT prophylaxis On Xarelto VS, I&O, 24H, Fishbone Vital Signs/I&O Vital Signs Date Time Temp Pulse Resp B/P (MAP) Pulse Ox O2 Delivery O2 Flow Rate FiO2 04/25/20 18:12 2.0 04/25/20 18:00 100.2 103 18 100/70 (80) 93 Nasal Cannula I&O- Last 24 Hours up to 6 AM 04/25/20 06:00 Intake Total 3870 ml Output Total 1450 ml Balance 2420 ml Laboratory Data 24H LABS Laboratory Tests 2 04/25/20 08:42: Immature Granulocyte % (Auto) 0.8, Neutrophils (%) (Auto) 83.3H, Lymphocytes (%) (Auto) 6.1L, Monocytes (%) (Auto) 8.5H, Eosinophils (%) (Auto) 1.1, Basophils (%) (Auto) 0.2, Neutrophils # (Auto) 16.4H, Lymphocytes # (Auto) 1.2L, Monocytes # (Auto) 1.7H, Eosinophils # (Auto) 0.2, Basophils # (Auto) 0.0, Nucleated Red Blood Cells % (auto) 0.0, Differential Slide Review Report, Peripheral Blood Smear Path Consult PERIPHERAL SMEAR, Anion Gap 7L, Glomerular Filtration Rate 54.0, Calcium Level 8.3L, Troponin I 0.11#H, CL-Rld-[id number]-Type Natriuretic Peptide 1206H, Procalcitonin 0.85, Thyroid Stimulating Hormone (TSH) 1.030 04/25/20 14:59: Troponin I 0.04# 04/25/20 18:16: Nucleated Red Blood Cells % (auto) 0.0, Lactic Acid Level 0.8 04/25/20 20:06: Troponin I 0.03# CBC/BMP Laboratory Tests 04/25/20 08:42 04/25/20 18:16 Microbiology Microbiology 04/23/20 Blood Culture - Preliminary, Resulted No Growth after 48 hours. All Specime... 04/23/20 Blood Culture - Preliminary, Resulted No Growth after 48 hours. All Specime... GEMA CHAUHAN DO Apr 25, 2020 22:03
[2020-04-26] VITALS (43 sets, daily range): BP systolic 99–144; BP diastolic 51–75
[2020-04-26] MEDS: PERCOCET 5MG/325MG TAB PO PRN ×2 (01:00→21:00)
[2020-04-26] MEDS: CEFEPIME HCL 2 GM in D5W MINI-BAG PLUS 50 ML IV SCH ×3 (02:20→17:37)
[2020-04-26 04:35] LABS: BASO % 0.1 % (0.0-1.0); EOS # 0.2 10^3/uL (0.0-0.5); EOS % 1.4 % (0.0-3.0); HEMATOCRIT 33.7 % (36.0-47.0); HEMOGLOBIN 10.2 g/dl (12.0-15.5); LYMPH % 6.3 % (24.0-44.0); MEAN CORPUSCULAR HEMOGLOBIN 27.8 pg (27.0-33.0); MEAN CORPUSCULAR HGB CONC 30.3 g/dl (32.0-36.5); MEAN CORPUSCULAR VOLUME 91.8 fl (80.0-96.0); MONO # 1.3 10^3/uL (0.0-0.8); MONO % 8.1 % (0.0-5.0); NEUTROPHILS % 82.8 % (36.0-66.0); PLATELET COUNT, AUTOMATED 339 10^3/uL (150-450); RED BLOOD COUNT 3.67 10^6/uL (4.00-5.40); WHITE BLOOD COUNT 15.7 10^3/uL (4.0-10.0)
[2020-04-26] MEDS: VANCOMYCIN HCL 1,000 MG, VIAL MATE ADAPTER 1 EACH in D5W 250 ML IV SCH ×3 (04:35→20:53)
[2020-04-26 05:05] LABS: BLOOD UREA NITROGEN 29 MG/DL (7-18); CALCIUM LEVEL 8.1 MG/DL (8.8-10.2); CARBON DIOXIDE LEVEL 28 MEQ/L (21-32); CHLORIDE LEVEL 104 MEQ/L (98-107); CREATININE FOR GFR 0.95 MG/DL (0.55-1.30); GLOMERULAR FILTRATION RATE > 60.0 (>45); GLUCOSE, FASTING 127 MG/DL (70-100); POTASSIUM SERUM 4.4 MEQ/L (3.5-5.1); SODIUM LEVEL 137 MEQ/L (136-145)
[2020-04-26] MEDS: NS 1,000 ML IV SCH (05:08)
[2020-04-26] MEDS: MORPHINE 2 MG/ML 1ML VIAL (J2270) IV PRN (06:05)
[2020-04-26] MEDS ORDERED: BISACODYL 10 MG SUPP PR PRN (09:00)
[2020-04-26] MEDS ORDERED: ACETAMINOPHEN TAB 650MG DOSE (2X325MG) PO PRN (09:00)
[2020-04-26] MEDS: DOCUSATE SODIUM 100MG CAPSULE PO SCH ×2 (09:00→20:53)
--- NOTE | 2020-04-26 09:19 | REP ---
INDICATION: Possible empyema COMPARISON: 04/23/2020. TECHNIQUE: Axial noncontrast images from the thoracic inlet to the upper abdomen with coronal and sagittal reformations. This CT examination was performed using the following dose reduction techniques: Automated exposure control, adjustment of mA and/or kv according to the patient's size, and use of iterative reconstruction technique. FINDINGS: Large left pleural effusion is identified with collapse to the left lower lobe and lingula along with passive atelectasis involving portions of the left upper lobe. Right hemithorax includes few scattered subtle areas of ground-glass opacity which are nonspecific. Reactive mediastinal and hilar lymph nodes are identified measuring up to approximately 12 mm short axis diameter. The tracheobronchial tree is relatively patent. Further evaluation of the mediastinum demonstrates atherosclerotic changes to the thoracic aorta and coronary arteries without aortic aneurysm. Early cardiomegaly suggested without pericardial effusion. Surrounding musculoskeletal structures demonstrate age-related degenerative changes without acute osseous abnormality. IMPRESSION: 1. Large left pleural effusion markedly increased from prior examination with associated areas of left lower lobe and lingular collapse and left upper lobe atelectasis. Right-sided airspace disease appears improved as compared with prior exam. <Electronically signed by Wu Alvarez > 04/26/20 0915
[2020-04-26] MEDS: LEVALBUTEROL 1.25 MG/0.5 ML CONCENTRATE NEB NEB SCH ×3 (09:56→19:00)
[2020-04-26] MEDS: GASTROGRAFIN SOLUTION 30ML PO SCH ×2 (10:00→10:30)
[2020-04-26] MEDS: HEPARIN SOD (PORCINE) 5000UNITS/ML 1ML VIAL/SYRINGE SC SCH ×2 (10:08→20:53)
[2020-04-26] MEDS: KETOROLAC 30 MG/ML 1ML VIAL IV SCH ×3 (10:09→20:52)
[2020-04-26] MEDS ORDERED: flumazeniL 0.5 MG/5 ML VIAL As Ordered ONE (10:21)
[2020-04-26] MEDS ORDERED: MIDAZOLAM INJ 2MG/2ML VIAL (J2250 PER 1MG) As Ordered ONE ×2 (10:21→10:22)
[2020-04-26 10:22] LABS: LDH LACTATE DEHYDROGENASE 190 U/L (84-246)
[2020-04-26] MEDS ORDERED: LIDOCAINE 1% MDV 20ML VIAL As Ordered ONE (10:22)
[2020-04-26] MEDS ORDERED: MIDAZOLAM INJ 2MG/2ML VIAL (J2250 PER 1MG) IV STA (11:14)
[2020-04-26] MEDS ORDERED: LIDOCAINE 1% MDV 20ML VIAL SC ONE (11:15)
[2020-04-26 11:25] LABS: INR 1.54; PROTHROMBIN TIME 18.8 SECONDS (12.5-14.3)
--- NOTE | 2020-04-26 11:25 | REP ---
INDICATION: S/P chest tube placement. COMPARISON: 25 April 2020. TECHNIQUE: Portable upright AP chest radiograph. FINDINGS: There is a left pleural drainage catheter noted in place at the left base. Infiltrate and atelectasis are present in the left base. Pleural opacity is again noted, somewhat improved. There is mild platelike atelectasis on the right. The apices are excluded from the field of view.. IMPRESSION: Status post left chest tube placement. Improved left pleural effusion. Bilateral platelike atelectasis.. <Electronically signed by Benja Watts > 04/26/20 1122
[2020-04-26 11:26] LABS: PARTIAL THROMBOPLASTIN TIME 44.9 SECONDS (24.2-38.5)
--- NOTE | 2020-04-26 11:27 | ECHO ---
DATE OF PROCEDURE: 04/25/2020 Age: 65 Gender: Female REFERRING PHYSICIAN: Guille Aleman DO PATIENT LOCATION: Room 4235 REASON FOR STUDY: Chest pain. 2D MEASUREMENTS: IVS 1.8 cm LV 3.5 cm LVPW 1.5 cm LA 4.1 cm Aorta 4.0 cm IVC 2.5 cm DOPPLER MEASUREMENT Peak velocity across the aortic valve 1.8 m/s Peak velocity across the LVOT 1.4 m/s Tricuspid valve velocity 3.9 m/s 2D COMMENTS: 1. Normal left ventricular size with moderately increased left ventricular wall thickness. Left ventricular systolic function is normal, estimated 60% to 65%. 2. Mildly enlarged left atrium. Normal right atrium and right ventricle. 3. The atrial septum appeared to be normal without evidence of defect or shunt. 4. Normal aortic root. There was increased echogenicity noted at the level of the aortic root that seems to be related to cholesterol plaques. 5. No pericardial effusion noted. Possible right pleural effusion noted in limited views. 6. Mildly calcified aortic valve with normal leaflet excursion. Normal mitral valve, tricuspid valve, and pulmonic valve. 7. The inferior vena cava was mildly enlarged, central venous pressure mildly elevated. Doppler detects trace aortic regurgitation, mild tricuspid regurgitation. The calculated pulmonary artery systolic pressure varies between 60 to 70 mmHg, but may be overestimated. IMPRESSION: 1. Normal global left ventricular systolic function with moderate concentric left ventricular hypertrophy. 2. Aortic valve sclerosis with trivial aortic stenosis, but no aortic regurgitation. 3. Mild mitral regurgitation with trace mitral regurgitation. 4. Mild tricuspid regurgitation with moderately severe pulmonary hypertension, probably overestimated. 5. Possible right pleural effusion noted in limited views. 6. Large calcific plaques noted in the ascending aorta. The patient might benefit from a transesophageal echocardiogram for further evaluation. MTDD
[2020-04-26] MEDS ORDERED: flumazeniL 0.5 MG/5 ML VIAL IV STA ×2 (11:30→11:56)
[2020-04-26 11:52] LABS: APPEARANCE, BODY FLUID CLOUDY (CLEAR); PLEURAL FL COLOR YELLOW (COLORLESS); SOURCE, BODY FLUID PLEURAL
[2020-04-26 12:44] LABS: ALBUMIN 2.1 GM/DL (3.2-5.2); TOTAL PROTEIN 5.4 GM/DL (6.4-8.2)
[2020-04-26] MEDS: D5W/0.9% SODIUM CHLORIDE 1,000 ML IV SCH (12:46)
--- NOTE | 2020-04-26 12:57 | IPNPDOC ---
Subjective Date Seen The patient was seen on 04/26/20. Subjective Chief Complaint/HPI Mrs. Nicholson is a 65 year old female with HTN, tobacco use, and anxiety who is here with intractable left sided pain causing dyspnea. Discussed with pulmonary and cardiothoracic surgery this morning about the repeat chest x-rays. Suggestive of empyema. Discussed with patient and patient's son about empyema and CT surgery consult. Objective Physical Examination General Exam: Positive: Cooperative, Mild Distress Eye Exam: Positive: EOMI; Negative: Sclera icteric ENT Exam: Positive: Atraumatic Neck Exam: Positive: Supple Chest Exam: Positive: Diminished Heart Exam: Positive: Rate Normal, Regular Rhythm Abdomen Exam: Positive: Normal bowel sounds, Soft; Negative: Tenderness Skin Exam: Positive: Nl turgor and temperature Neuro Exam: Positive: Cranial Nerves 3-12 NL Psych Exam: Positive: Anxiety Assessment /Plan Assessment Mrs. Nicholson is a 65 year old female with HTN, tobacco use, and anxiety who is here with intractable pain. Serial CXR demonstrated enlarging pleural effusion. Discussed with pulmonary and cardiothoracic surgery. Initial CT on admission demonstrated small effusion, but now that it is large. In the setting of pneumonia, pleuritic chest pain, and reproducible pain, it is felt to be an empyema. Cardiothoracic surgery consulted. To be drained today. Plan/VTE VTE Prophylaxis Ordered?: Yes Plan 1. Pneumonia and empyema -Pneumonia, effusion, pleuritic pain, and chest wall and back tenderness suggestive of Empyema -Cardiothoracic surgery consulted, recommendations appreciated -Plan to be drained today (04/26/2020) -Continue with broad spectrum antibiotics: Cefepime (allergy to PCN) and Vancomycin -Pending culture results -Consulted ID for antibiotic regimen. Recommendations appreciated 2. Acute kidney injury -Creatinine increased from 0.85 to 2.20 -Poor oral intake due to pain -FeNa 0.1% (used urine sodium of 10. Lab reported <10 for urine sodium) -Most likely a combination of contrast induced nephropathy and poor oral intake -IVF -Resolved -Monitor renal function. CT surgery scheduled ketorolac to help with pain control 3. Early CHF EKG demonstrates old infarct in inferior leads Troponin negative Echocardiogram on 04/25/20 demonstrated EF 60-65%, mild tricuspid regurgitation with moderately severe pulmonary hypertension (60 to 70 mmHg) 4. Hypertension Discontinued antihypertensive as hypotensive at this time 5. New onset atrial fibrillation -TSH and electrolytes within normal -Echocardiogram as described above -Xarelto held for procedure -Will need to follow up with cardiology outpatient -Converted to sinus rhythm 6. DVT prophylaxis Held Xarelto for procedure will proceed with SCD and TEDs VS, I&O, 24H, Fishbone Vital Signs/I&O Vital Signs Date Time Temp Pulse Resp B/P (MAP) Pulse Ox O2 Delivery O2 Flow Rate FiO2 04/26/20 08:00 98.0 81 20 117/68 (84) 92 Nasal Cannula 3.0 I&O- Last 24 Hours up to 6 AM 04/26/20 06:00 Intake Total 4170 ml Output Total 1675 ml Balance 2495 ml Laboratory Data 24H LABS Laboratory Tests 2 04/25/20 14:59: Troponin I 0.04# 04/25/20 18:16: Nucleated Red Blood Cells % (auto) 0.0, Lactic Acid Level 0.8 04/25/20 20:06: Troponin I 0.03# 04/26/20 04:03: Nucleated Red Blood Cells % (auto) 0.0, Immature Granulocyte % (Auto) 1.3, Neutrophils (%) (Auto) 82.8H, Lymphocytes (%) (Auto) 6.3L, Monocytes (%) (Auto) 8.1H, Eosinophils (%) (Auto) 1.4, Basophils (%) (Auto) 0.1, Neutrophils # (Auto) 13.0H, Lymphocytes # (Auto) 1.0L, Monocytes # (Auto) 1.3H, Eosinophils # (Auto) 0.2, Basophils # (Auto) 0.0, Anion Gap 5L, Glomerular Filtration Rate > 60.0, Calcium Level 8.1L, Lactate Dehydrogenase 190 04/26/20 11:01: CBC/BMP Laboratory Tests 04/25/20 18:16 04/26/20 04:03 Microbiology Microbiology 04/23/20 Blood Culture - Preliminary, Resulted No Growth after 48 hours. All Specime... 04/23/20 Blood Culture - Preliminary, Resulted No Growth after 72 hours. All specime... GEMA CHAUHAN DO Apr 26, 2020 11:27
[2020-04-26 12:59] LABS: AMYLASE, BODY FLUID 27 U/L (NOT ESTABLISHED); CHOLESTEROL, BODY FLUID 97 MG/DL (NOT ESTABLISHED); LDH, BODY FLUID 690 U/L (NOT ESTABLISHED); SOURCE, BODY FLUID AMYLASE PLEURAL; SOURCE, BODY FLUID CHOL PLEURAL; SOURCE, BODY FLUID GLUCOSE PLEURAL; SOURCE, BODY FLUID LDH PLEURAL; SOURCE, BODY FLUID TRIG PLEURAL; TRIGLYCERIDE, BODY FLUID 76 MG/DL (NOT ESTABLISHED)
[2020-04-26 13:21] LABS: SOURCE, BODY FLUID ALBUMIN PLEURAL; SOURCE, BODY FLUID TOT PROTEIN PLEURAL; TOTAL PROTEIN, BODY FLUID 4.2 G/DL (NOT ESTABLISHED)
[2020-04-26 16:26] LABS: PH BODY FLUID 7.511 UNITS (NOT ESTABLISHED); SOURCE, BODY FLUID pH PLEURAL
[2020-04-26] MEDS: MOM 30ML SUSPENSION UDC PO SCH (16:55)
[2020-04-26] MEDS: PANTOPRAZOLE 40MG TAB (PROTONIX) PO SCH (16:56)
[2020-04-26] MEDS: ASPIRIN 81 MG ENTERIC TAB PO SCH (16:56)
[2020-04-26] MEDS: LACTOBACILLUS ACIDOPHILUS CAP (BACID) PO SCH (16:56)
[2020-04-26] MEDS: MULTIVITAMINS/MINERALS THERAP 1 TAB PO SCH (16:57)
[2020-04-26] MEDS: NORCO, ANEXSIA 5/325MG TABLET (HYDROcodone/ACETAMINOPHEN) PO PRN (16:57)
[2020-04-26 18:10] LABS: BODY FLUID CULTURE Not indicated. (.); LEGIONELLA ANTIGEN URINE Negative (Negative); ORGANISM ID Not indicated. (.); SPECIMEN SOURCE Urine (.); URINE STREP PNEUMONIAE ANTIGEN Negative (Negative)
--- NOTE | 2020-04-26 19:51 | CR ---
CONSULTATION DATE: 04/26/2020 REASON FOR CONSULTATION: The patient is seen at the request of the hospitalist service, Dr. Aleman for shortness of breath, chest pain, and a pleural effusion. HISTORY OF PRESENT ILLNESS: The patient is a 65-year-old white female whose story starts about a week and a half ago when she started to develop a cough with white sputum production. The cough eventually subsided, but she then started to note increasing knife-like chest pain on the left side, which increased with taking a deep breath. 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 She has had continued fever, chills, and sweats. The pain became so intense that she sought medical attention in our emergency room at 4 o'clock in the morning on 04/23/2020. She has had no dysphagia and her weight has remained stable. She is short of breath more from her pain than intrinsically so. It hurts her to take a deep breath or even a shallow breath. PAST MEDICAL ILLNESSES: 1. Hypertension. 2. Anxiety. 3. Tobacco use. PAST SURGICAL HISTORY: 1. Appendectomy in 1975. 2. Laminectomy in 2002. 3. Colonoscopy in 2018. HABITS: She smokes one pack per day various brand cigarettes for over 20 years. She occasionally drinks alcohol about once a month and does not use illicit drugs. 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 Her TB tests have been negative. TRAVEL HISTORY: She has traveled quite extensively to the [facility] [place] to see her son. She has also been to [place] in the remote past. EXPOSURES: She has two cats. No dogs or birds. FAMILY HISTORY: Father at the age of 65 of a myocardial infarction. Mother of adenocarcinoma of the rectum. REVIEW OF SYSTEMS: Constitutional: See HPI. Eyes without diplopia, without amaurosis fugax, without chronic jaundice. Nose without epistaxis. Mouth: Has her own teeth. Respiratory: See HPI. No history of atrial fibrillation or of prior myocardial infarctions. She has difficulty lying down more from pain than intrinsic shortness of breath in the last week. There is no real paroxysmal or nocturnal dyspnea. No intermittent claudication. GI: Without nausea, vomiting, diarrhea, constipation, melena, hematochezia, hematemesis, or abdominal pain. Endocrine: States that she has "pre-diabetes" without thyroid disease. : Without hematuria, dysuria, or prior history of renal stones. Neurologic: Without paresthesias, paralysis, or prior seizures. Without transient monocular blindness. Psychiatric: Has anxiety without pathological depressions or psychoses. HOME MEDICATIONS: - aspirin 81 mg q. day - felodipine 10 mg q. day - multivitamins one tab q. day - omega 3 two grams q. day - terazosin 5 mg q. bedtime - valsartan/hydrochlorothiazide 320/25 one q. day PHYSICAL EXAMINATION: GENERAL: Well-developed obese white female in moderate distress from chest pain and shortness of breath. VITAL SIGNS: Temperature 98.0 with a heart rate of 81 in sinus rhythm. Respiratory rate of 20 without the use of accessory muscles who is 92% saturated on 3 liters nasal cannula. HEENT: Eyes: pupils equal, round, and reactive to light. Extraocular muscles intact. Sclerae nonicteric. Nose without deformity. Mouth shows her mucous membranes to be pink and moist. Lips and gums without lesions. There is no thrush. NECK: Supple. There is no jugular venous distention. No subcutaneous emphysema. Trachea is midline. There is no lymphadenopathy or thyromegaly. She has 2+ carotid upstrokes with no bruits. LUNGS: Show markedly decreased breath sounds on the left side with a dull percussion note on the left side. She has inspiratory rales at the left mid hemithorax with E:A egophony in the lower hemithorax. Right side shows scattered rhonchi. She cannot cough secondary to pain. CARDIAC: Without murmurs, clicks, gallops, or rubs. I cannot feel her PMI. S1 and S2 are normal. ABDOMEN: Soft and nontender. Bowel sounds are positive. There is no hepatomegaly that I can feel through her obesity. There is left-sided CVA tenderness probably referable to her chest pathology. EXTREMITIES: Show trace pretibial edema. No calf tenderness. No differential swelling of the upper extremities. SKIN: Warm, dry, and perfused without cyanosis or mottling, including that of the nail beds and knees. NEUROLOGIC: Shows II through XII intact. Normal gross motor. Gross sensation intact. Gait is not tested. PSYCHIATRIC: Shows her to be awake, alert, and oriented x3 with appropriate mood and affect and conversational. LABORATORY DATA: Her white count today is 15.7. She was admitted with a white count of 18.8. Hemoglobin and hematocrit are 10.2 and 33.7 compared to her admission hemoglobin and hematocrit of 12.7 and 40.9 respectively. Platelet count is 339,000 and stable. Differential shows 82% neutrophils, 6% lymphocytes, 8% monocytes. There are no immature forms and no toxic granulations. Her electrolytes are normal with a BUN and creatinine of 29 and 0.95, glucose of 127, and a calcium of 8.1. Albumin is 2.1. On admission, her troponin was less than 0.02 and her AST and ALT were normal at 6 and 13 respectively. Her BUN and creatinine have normalized from 29 and 2.20. Her ProTime is 18.8 with an INR of 1.54 and a PTT of 44.9. She is COVID negative. IMAGING: Her chest x-ray shows an increasing left lower hemithorax opacity consistent with worsening pleural effusion. Her admission chest CT showed a small to moderate pleural effusion and that is now increased to a large pleural effusion with consolidation and compression of her left lower lobe. She also has on her admission chest CT a left lower lobe infiltrative process. The first chest CT done on 04/23/2020 was done under angiographic protocol. There were no pulmonary emboli. There was also a small infiltrative process in the right lower lobe. Today's chest CT now shows complete consolidation of the left lower lobe with improvement in the infiltrative process in the right lower lobe. The original infiltrative process on the right side is probably atelectasis secondary to pain with breathing. There are some ground-glass lesions in the right upper lobe. These are three in number. Her liver does not show any lesions though it is a relatively large liver. The left adrenal looks to have a normal configuration and I do not see the right adrenal. IMPRESSION: 1. Pleural effusion increasing most likely an empyema. 2. Left lower lobe pneumonia. 3. Transient atrial fibrillation for which she was placed on a 10A inhibitor. 4. Anxiety. 5. Hypertension. PLAN AND DISCUSSION: She is now presently on vancomycin and Cefepime as antibiotics. I do not see where a sputum culture was obtained. This is quite a classic case of an empyema with cough, fever, chills, sweats, and pleurodynia i.e. pleuritic chest pain. I will therefore place a chest tube to drain her and sent it off for all the requisite studies including chemistries, hematologies, cytologies, and bacteriologies. Her renal failure is resolved and I will start her on Toradol for pain control along with narcotic analgesia. Will start her on lung expansion therapy to include PEP and incentive spirometry. I will follow her chest x-rays every day and most likely will get a chest CT tomorrow to see what the underlying lung looks like and if I need to do a tPA pleurolysis. She has had this pleural effusion since April 23. I do not think her lung is yet entrapped.
--- NOTE | 2020-04-26 19:51 | RO ---
OPERATIVE NOTE DATE OF OPERATION: 04/26/2020 PREPROCEDURE DIAGNOSIS: Pleural effusion probable empyema. POSTPROCEDURE DIAGNOSIS: Pleural effusion probable empyema. SURGEON: Cali Armando M.D. PROCEDURE: Insertion of a left lateral chest tube with moderate sedation. DESCRIPTION OF PROCEDURE: Under moderate sedation eventually achieved with 6 mg of Versed, the patient was prepped and draped in the usual sterile fashion. The breast was held back and the skin and subcutaneous tissue, intercostal muscles, and pleura were infiltrated with 1% Lidocaine in and around the sixth intercostal space. The incision was made and a tunnel was created in the test. Opaque fluid was eluded from the chest. A #24 chest tube was placed without difficulty. It was secured to the chest wall with #2 Tevdek suture. Specimens were collected and sent for cytologies, hematologies, bacteriologies, and chemistries. The patient tolerated the procedure well and a chest x-ray is pending.
[2020-04-26] MEDS: cefTRIAXone SOD 2 GM in D5W MINI-BAG PLUS 50 ML IV SCH (22:49)
--- NOTE | 2020-04-26 23:28 | ECGEPIP ---
[facility] Test Date: 2020-04-25 Pat Name: ZEHRA OH Department: Room: [place] [address] Gender: Female Social Contact Worker: : 1955 Requested By: GEMA Dixon Order Number: [id number] Reading MD: Bentley Claudio Measurements Intervals [place] Rate: 94 P: MT: 0 QRS: -24 QRSD: 120 T: -17 QT: 332 QTc: 416 Interpretive Statements ATRIAL FIBRILLATION MODERATE VOLTAGE CRITERIA FOR LVH, CONSIDER NORMAL VARIANT INFERIOR MYOCARDIAL INFARCTION, OF INDETERMINATE AGE Last tracing on 04/25/20, 05:51. Heart rate was 106 bpm. Electronically Signed on 04-26-2020 23:27:41 EST by Bentley Claudio
[2020-04-27] VITALS: BP 137/74
[2020-04-27] MEDS: LEVALBUTEROL 1.25 MG/0.5 ML CONCENTRATE NEB NEB SCH ×4 (01:58→19:45)
[2020-04-27 04:00] VITALS: BP 120/64
[2020-04-27] MEDS: KETOROLAC 30 MG/ML 1ML VIAL IV SCH ×4 (04:20→20:15)
[2020-04-27] MEDS: VANCOMYCIN HCL 1,000 MG, VIAL MATE ADAPTER 1 EACH in D5W 250 ML IV SCH ×2 (04:20→12:45)
[2020-04-27 05:14] LABS: ABG HCO3 24.7 MEQ/L (22.0-26.0); ABG O2 SATURATION 92.8 % (95.0-99.0); ABG PARTIAL PRESSURE CO2 50.7 mmHg (35.0-45.0); ABG PARTIAL PRESSURE O2 67.8 mmHg (75.0-100.0); ABG STANDARD HCO3 22.7 MEQ/L (22.0-26.0); ABG TOTAL CO2 26.2 MEQ/L (23.0-31.0); ABG pH (ARTERIAL) 7.305 UNITS (7.350-7.450)
[2020-04-27 05:18] LABS: BASO % 0.2 % (0.0-1.0); EOS # 0.3 10^3/uL (0.0-0.5); EOS % 2.5 % (0.0-3.0); HEMATOCRIT 33.9 % (36.0-47.0); HEMOGLOBIN 10.4 g/dl (12.0-15.5); LYMPH # 0.9 10^3/uL (1.5-5.0); LYMPH % 7.3 % (24.0-44.0); MEAN CORPUSCULAR HEMOGLOBIN 28.4 pg (27.0-33.0); MEAN CORPUSCULAR HGB CONC 30.7 g/dl (32.0-36.5); MEAN CORPUSCULAR VOLUME 92.6 fl (80.0-96.0); MONO # 1.3 10^3/uL (0.0-0.8); NEUTROPHILS # 9.4 10^3/uL (1.5-8.5); NEUTROPHILS % 78.3 % (36.0-66.0); PLATELET COUNT, AUTOMATED 323 10^3/uL (150-450); RED BLOOD COUNT 3.66 10^6/uL (4.00-5.40)
[2020-04-27 05:49] LABS: BLOOD UREA NITROGEN 23 MG/DL (7-18); CALCIUM LEVEL 8.3 MG/DL (8.8-10.2); CARBON DIOXIDE LEVEL 27 MEQ/L (21-32); CHLORIDE LEVEL 107 MEQ/L (98-107); CREATININE FOR GFR 0.72 MG/DL (0.55-1.30); GLOMERULAR FILTRATION RATE > 60.0 (>45); GLUCOSE, FASTING 153 MG/DL (70-100); POTASSIUM SERUM 4.1 MEQ/L (3.5-5.1); SODIUM LEVEL 139 MEQ/L (136-145)
[2020-04-27] MEDS: D5W/0.9% SODIUM CHLORIDE 1,000 ML IV SCH (06:32)
[2020-04-27] MEDS: PERCOCET 5MG/325MG TAB PO PRN ×3 (06:37→20:27)
[2020-04-27 07:54] VITALS: BP 166/80
--- NOTE | 2020-04-27 08:32 | REP ---
INDICATION: empyema COMPARISON: 04/26/2020, 04/25/2020 TECHNIQUE: PA and lateral. FINDINGS: Left-sided chest tube is in stable position and there appears to be decreased pleural fluid as compared with 04/25/2020. Underlying pleuroparenchymal changes and smaller amount of residual fluid in the left hemithorax is now suggested. The right hemithorax is clear. Visualized portions of the mediastinum and cardiac silhouette are stable. IMPRESSION: Left chest tube in stable position with decreased pleural fluid as compared with 04/25/2020 <Electronically signed by Wu Alvarez > 04/27/20 0829
--- NOTE | 2020-04-27 08:39 | REP ---
INDICATION: status of pleural effusion COMPARISON: 04/26/2020 TECHNIQUE: Axial noncontrast images from the thoracic inlet to the upper abdomen with coronal and sagittal reformations. This CT examination was performed using the following dose reduction techniques: Automated exposure control, adjustment of mA and/or kv according to the patient's size, and use of iterative reconstruction technique. FINDINGS: Left-sided chest tube appears to be in stable position extending towards the posterior mid pleural space and there is considerably decreased pleural fluid as compared with prior examination. The residual pleural fluid may represent small amounts of loculated fluid along the posterior mid to upper pleural cavity. Associated somewhat circumferential pleural thickening is noted as well as stable appearing scattered areas of atelectasis and lower lobe/lingular consolidation with air bronchograms. Right hemithorax is relatively clear with only minimal dependent changes noted. Mediastinum demonstrates stable atherosclerotic changes to the thoracic aorta and coronary arteries with mild stable cardiomegaly and no significant pericardial effusion. Pulmonary vasculature appears normal caliber. Reactive mediastinal and hilar lymph nodes are suggested measuring up to approximately 13 mm short axis diameter. Surrounding musculoskeletal structures are intact. IMPRESSION: 1. Decreased left pleural fluid with residual pleural fluid along the posterior mid to upper pleural cavity possibly partially loculated. 2. Further left-sided pleuroparenchymal changes including pleural thickening, scarring, scattered atelectasis and lower lobe/lingular consolidations with air bronchograms are similar to prior examination. <Electronically signed by Wu Alvarez > 04/27/20 [id number]
[2020-04-27] MEDS: MULTIVITAMINS/MINERALS THERAP 1 TAB PO SCH (08:50)
[2020-04-27] MEDS: ASPIRIN 81 MG ENTERIC TAB PO SCH (08:50)
[2020-04-27] MEDS: DOCUSATE SODIUM 100MG CAPSULE PO SCH ×2 (08:50→20:16)
[2020-04-27] MEDS: LACTOBACILLUS ACIDOPHILUS CAP (BACID) PO SCH (08:50)
[2020-04-27] MEDS: PANTOPRAZOLE 40MG TAB (PROTONIX) PO SCH (08:50)
[2020-04-27] MEDS: MOM 30ML SUSPENSION UDC PO SCH (08:51)
[2020-04-27] MEDS: HEPARIN SOD (PORCINE) 5000UNITS/ML 1ML VIAL/SYRINGE SC SCH ×2 (08:51→20:16)
--- NOTE | 2020-04-27 09:12 | IPN ---
PROGRESS NOTE DATE: 04/27/2020 SUBJECTIVE: What a difference 24 hours makes. The patient is feeling so much better and her pain is down considerably. OBJECTIVE: VITAL SIGNS: Show a T-max of 98.2 with a heart rate that ranges between 66 and 76 in sinus rhythm. Respiratory rate of 16 to 20 without the use of accessory muscles. She was 93% to 94% saturated on 3 liters nasal cannula and whose blood pressure is ranging between 120/64 and 166/80. INTAKE AND OUTPUT: Over the past 24 hours has not accurately been recorded. It is recorded as 1790 in and 1816 out for a positivity of 974 mL. However, yesterday's chest tube output is not included. Her weight is pending today. RESPIRATORY: Her lungs show bronchophony and transmitted breath sounds in the left lower lobe with E:A egophony in the left lower extremity. She has a dull percussion noted in the left lower hemithorax. Right side shows normal vesicular sounds without wheezes, rhonchi, or rales. CARDIAC: Shows a 2/6 systolic murmur at the left upper sternal border. I did not appreciate that yesterday. I cannot feel her PMI. S1, S2 are normal. ABDOMEN: Soft and nontender. Bowel sounds are positive. There is no hepatomegaly that I can feel through her obesity. There is no CVA tenderness except a little bit referable to her chest process on the left side. EXTREMITIES: Show no pretibial edema. No calf tenderness. No differential swelling of the upper extremities. SKIN: Warm, dry, and perfused without cyanosis or mottling, including that of the nail beds and knees. NECK: Supple. There is no jugular venous distention. No subcutaneous emphysema. Trachea is midline. MOUTH: Shows the mucous membranes to be pink and moist. Lips and gums without lesions and no thrush. EYES: Show her pupils equal and reactive. Extraocular movements are intact. Sclerae nonicteric. NEUROLOGIC: Shows II through XII intact. Normal gross motor, gross sensation intact. Gait is not tested. PSYCHIATRIC: Shows her to be awake, alert, and oriented x3 with appropriate mood and affect and conversational. LABORATORY DATA: Her white count today is down to 12.0 with a hemoglobin and hematocrit of 10.4 and 33.9 unchanged from yesterday and a platelet count of 323. Differential shows 78% neutrophils, 70% lymphocytes, and 11% monocytes. There are no immature forms and no toxic granulations. Her electrolytes are normal with a BUN and creatinine of 23 and 0.72. Glucose of 153 and a calcium of 8.3. Blood gases this morning show a pH of 7.30, pCO2 of 50, pO2 of 67 on 3 liters nasal cannula with a base excess of -2. Her pleural fluid has been returned with a pH of 7.51 and a glucose of 100, but with an LDH of 690 with a corresponding serum LDH of 190 and a total protein of 4.2 with a corresponding total protein of 5.4. Cell count shows 4200 white cells, 84% of which are PNMs and 15% are monocytes and lymphocytes. This therefore, looks like an exudative neutrophilic effusion consistent with an empyema or at least a parapneumonic effusion. Blood cultures are negative and the pleural fluid does not show any organisms. Final results are pending. There was a sputum culture ordered late last night with no organism seen with a moderate amount of white cells. Final culture is pending. IMAGING: Her chest x-ray is still pending today. Because of her physical examination findings, I have also ordered a CT scan to see if there is any leftover pleural fluid that will need lysis with tPA. IMPRESSION: 1. Left-sided pneumonia. 2. Empyema or at least parapneumonic effusion. 3. Transient atrial fibrillation now resolved. 4. Anxiety. 5. Hypertension. 6. Unknown murmur. PLAN AND DISCUSSION: While I doubt that she has endocarditis, it is incumbent upon us to echo her heart valves. As noted above, I have ordered a CT scan of her this morning and if she shows loculations, I will do a tPA pleurolysis. She is remaining on Cefepime and vancomycin until cultures are returned.
--- NOTE | 2020-04-27 09:30 | CR ---
CONSULTATION DATE: 2020 REASON FOR CONSULTATION: I was asked to consult by Dr. Guille Aleman for evaluation of pneumonia with a parapneumonic effusion. 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 The patient in the week prior to admission started having a fever up to 101.5, then had a cough productive of mild white-yellow sputum. She had intermittent left-sided chest pain for about five days prior to admission, then developed severe shortness of breath. The patient describes the pain was located in her axilla and back radiating up to the shoulder and neck. She was admitted to on April 23, was treated with IV Rocephin and Zithromax. Her shortness of breath got worse and today she had a thoracentesis done by Dr. Armando with marked improvement in her symptoms. In the ER, she had a CT angiogram which was negative for pulmonary embolism but demonstrated a moderate bibasilar consolidation, pulmonary congestion and an effusion. 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 Troponins were negative. PAST MEDICAL HISTORY: Significant for anxiety, hypertension, prediabetes, tobacco abuse, about a pack of cigarettes a day. She is willing to quit smoking and is not interested in using Chantix at this time. PAST SURGICAL HISTORY: Appendectomy in 1975, laminectomy in 2002, colonoscopy in 2018. HOME MEDICATIONS: Aspirin 81 mg daily, felodipine 10 mg q.daily, multivitamin one tablet daily, terazosin 5 mg q.h.s., valsartan, hydrochlorothiazide 320/25 one tablet daily. In the hospital, she is on metoprolol 12.5 mg p.o. b.i.d., Xarelto 20 mg p.o. daily, Ledger one tablet p.o. q.6 p.r.n., cefepime 2 gm IV q.8 hours, vancomycin 1 gm IV q.8 hours, Zithromax, she received one dose on 04/23. LABORATORY DATA: SARS-CoV-2 negative, influenza A and B negative, RSV negative. Urine Legionella antigen and pneumococcal antigen were negative. Pleural fluid had a pH of 7.55, white cells 4243, 15% neutrophils, 85% PMNs. LDH 690, amylase 27, cholesterol 97, total protein 4.2, albumin 1.8. Gram stain had no organisms seen, a few white cells, many red cells. Blood cultures, two sets were negative. IMAGING: Chest CT done on 04/26 shows reactive mediastinal and hilar adenopathy, a large left pleural effusion with collapse of the lower lung and lingula along with passive atelectasis, left upper lobe. Right lung with a few scattered opacities. PHYSICAL EXAMINATION: She is pleasant, healthy looking female in no acute distress. T max was 100.2 yesterday. Today, she is afebrile. Pulse 77, respirations 18, blood pressure 132/63, O2 sat 93% on three liters nasal cannula. Heart: Normal S1, S2, no murmurs appreciated. Lung: Clear. No wheezes, rales or rhonchi. Abdomen: Morbidly obese, soft, nontender, no hepatosplenomegaly. Back: No CVA or lumbosacral tenderness. Extremities: +1 pretibial edema. Calves nontender, no clubbing or cyanosis. Feet: No lesions. Skin: No rashes. Oropharynx was clear. Neck: No JVD. Blood cultures, two sets are no growth after 72 hours. AFB smear and culture, fungal, smear culture and aerobic culture are all pending. IMPRESSION: This is a 65-year-old female who developed pneumonia about a week prior to admission with a fever of 101, a cough, then developed pleuritic chest pain and a large pleural effusion. In the chest tube, there was serosanguineous fluid. pH is not consistent with an empyema. The gram stain is negative. The pH is 7.5. Cultures are still pending. We were not able to obtain a sputum culture although she stats now she has more of a productive cough and we will try to obtain a sputum culture. As far as her allergies, penicillin was over 25 years ago, she had a nonspecific rash and therefore, she could be rechallenged with a penicillin-based antibiotic. At this point, I suggest switching her back to Rocephin. She just needed drainage of her pleural effusion. She does not need Pseudomonas coverage with cefepime. We will continue vancomycin until we obtain MRSA screen and a sputum culture. PLAN: Obtain MRSA screen tonight, sputum gram stain and culture, follow up on pleural fluid, gram stain and culture. We will discuss the case with Dr. Armando as far as antibiotic choices and that will also depend on results of sputum and pleural fluid cultures. ALso performed counseling regarding smoking cessation, the patient is not interested in Chantix or nicotine patches but will be quitting on her own MTDD
[2020-04-27 11:56] VITALS: BP 124/66
--- NOTE | 2020-04-27 12:17 | IPNPDOC ---
Text Note Date of Service The patient was seen on 04/27/20. NOTE Subjective: No any acute events overnight. Patient stated that she feels much better today, breathing improved. Patient continues to have serosanguineous discharge from the chest tube Objective: GENERAL APPEARANCE: Morbidly obese female HEENT: no scleral icterus, no JVD, EOMI CARDIOVASCULAR: Irregularly irregular LUNGS: Diminished lung sounds bilaterally with mild crackles at the base ABDOMEN: soft & not tender w palpitation MUSCULOSKELETAL: no cyanosis, no swelling INTEGUMENT: no generalized palor NEUROLOGICAL: cranial nerve function from 2-12 intact intact, follows commands, speech not dysarthric Assessment /Plan Mrs. Nicholson is a 65 year old female with HTN, tobacco use, and anxiety who is here with intractable pain. Serial CXR demonstrated enlarging pleural effusion. Discussed with pulmonary and cardiothoracic surgery. Initial CT on admission demonstrated small effusion, but now that it is large. In the setting of pneumonia, pleuritic chest pain, and reproducible pain, it is felt to be an empyema. Cardiothoracic surgery consulted. To be drained today. Plan 1. Pneumonia and empyema Chest tube was placed on (04/26/2020), 35 mL serosanguineous discharge overnight Continue ceftriaxone, DC vancomycin MRSA negative Blood culture negative, await pleural fluid culture CT on 04/27/19 showed Decreased left pleural fluid with residual pleural fluid along the posterior mid to upper pleural cavity possibly partially loculated. I will discuss with Dr. Tr andre tPA pleurolysis ID follows her 2. Acute kidney injury Resolved 3. Pulmonary hypertension Echo shows 1. Normal global left ventricular systolic function with moderate concentric left ventricular hypertrophy. 2. Aortic valve sclerosis with trivial aortic stenosis, but no aortic regurgitation. 3. Mild mitral regurgitation with trace mitral regurgitation. 4. Mild tricuspid regurgitation with moderately severe pulmonary hypertension, probably overestimated. 5. Possible right pleural effusion noted in limited views. 6. Large calcific plaques noted in the ascending aorta. The patient might benefit from a transesophageal echocardiogram for further evaluation 4. Hypertension Continue home cardioprotective medication 5. New onset atrial fibrillation -TSH and electrolytes within normal -Echocardiogram as described above -Xarelto on hold. Patient has serosanguineous discharge from chest tube. -Will need to follow up with cardiology outpatient -Converted to sinus rhythm Follow-up with rn clinician in the outpatient settings Smoking abuse Patient agreed to stop smoking VS,Earl, I+O VS, Fishbone, I+O Laboratory Tests 04/27/20 04:56 Vital Signs Date Time Temp Pulse Resp B/P (MAP) Pulse Ox O2 Delivery O2 Flow Rate FiO2 04/27/20 08:00 3.0 04/27/20 07:54 96.9 76 18 166/80 (108) 93 Nasal Cannula I&O- Last 24 Hours up to 6 AM 04/27/20 06:00 Intake Total 1900 ml Output Total 1801 ml Balance 99 ml ESTELA SIMPSON DO Apr 27, 2020 12:17
[2020-04-27] MEDS: amLODIPine 10 MG TAB PO SCH (12:41)
[2020-04-27] MEDS: NORCO, ANEXSIA 5/325MG TABLET (HYDROcodone/ACETAMINOPHEN) PO PRN (12:44)
[2020-04-27] MEDS: VALSARTAN 80 MG TAB (DIOVAN) PO SCH (12:45)
[2020-04-27] MEDS: ONDANSETRON 4MG/2ML VIAL IV PRN (15:45)
[2020-04-27 15:53] VITALS: BP 112/66
--- NOTE | 2020-04-27 18:59 | IPN ---
PROGRESS NOTE DATE: 04/27/2020 Ana Laura seems to be doing better than yesterday. She had some pleural fluid drainage today but only about 25 mL, about a total of 1200 since the chest tube was placed. There is discussion about tPA for the partially loculated pleural fluid that is residual. She states she was able to bring up some phlegm and a sputum culture has been sent. She has no nausea, vomiting, or diarrhea but has no appetite and has not been eating well. PHYSICAL EXAMINATION: Heart: Normal S1, S2, no murmurs appreciated. Lungs: Diminished breath sounds with egophony on the left side. Chest tube in place. Abdomen: Soft, nontender, morbidly obese. Extremities: No clubbing, cyanosis, mild edema, +1 pitting of the pretibial area. Neurologic: Exam normal. LABORATORY DATA: White count 12, hemoglobin 10.4, hematocrit 33.9, platelets 323, sodium 139, potassium 4.1, chloride 107, bicarbonate 27, BUN 23, creatinine 0.72, glucose 153, calcium 8.3, CRP 34.8, LDH 190, total protein 5.4, albumin 2.1. Pleural fluid pH was 7.5, white count 42,043 with 84% polymorphonuclear cells (PMNs), LDH 690, amylase 27, cholesterol 97. Pleural fluid culture is pending. AFB smear and culture are pending. Sputum culture is pending. Sputum gram stain had moderate white cells and no organism seen. CT chest followup after chest tube placement done on 04/27/2020 shows decreased pleural fluid with residual along the posterior mid upper pleural cavity possibly partially loculated. Consolidation with air bronchograms. IMPRESSION: 1. Left lower lobe pneumonia with a large effusion, most likely parapneumonic not empyema. pH is not consistent with an empyema and the gram stain is negative. Cultures are still pending. Patient on IV vancomycin and Rocephin. Methicillin-resistant Staphylococcus aureus (MRSA) screen is negative. If sputum culture and pleural fluid are negative for MRSA, vancomycin could be discontinued. 2. Pulmonary hypertension. Echocardiogram shows moderate left ventricular hypertrophy (LVH), normal left ventricular systolic function, mild to moderate regurgitation, tricuspid regurgitation, and moderately severe pulmonary hypertension. 3. Tobacco abuse. Patient was counseled regarding smoking cessation. 4. Anorexia, most likely related to infection and dyspnea. Patient was encouraged to at least drink some Ensure and increase her protein intake. PLAN: Continue IV Rocephin and vancomycin until results of pleural fluid and sputum culture are available. If negative for methicillin-resistant Staphylococcus aureus (MRSA), discontinue vancomycin tomorrow. Continue to monitor complete blood count (CBC), erythrocyte sedimentation rate (ESR), C-reactive protein (CRP) every 2-3 days.
[2020-04-27 20:00] VITALS: BP_SYST 114; BP_SYST 120; BP_DIAS 58; BP_DIAS 62
[2020-04-27] MEDS: cefTRIAXone SOD 2 GM in D5W MINI-BAG PLUS 50 ML IV SCH (20:15)
[2020-04-28] VITALS: BP 115/60
[2020-04-28] MEDS: VANCOMYCIN HCL 1,000 MG, VIAL MATE ADAPTER 1 EACH in D5W 250 ML IV SCH ×2 (00:09→12:53)
[2020-04-28] MEDS: LEVALBUTEROL 1.25 MG/0.5 ML CONCENTRATE NEB NEB SCH ×4 (01:46→19:24)
[2020-04-28] MEDS: KETOROLAC 30 MG/ML 1ML VIAL IV SCH ×4 (03:49→21:00)
[2020-04-28 04:00] VITALS: BP 127/67
[2020-04-28 05:38] LABS: BASO # 0.1 10^3/uL (0.0-0.2); BASO % 0.5 % (0.0-1.0); EOS # 0.3 10^3/uL (0.0-0.5); EOS % 2.3 % (0.0-3.0); HEMATOCRIT 33.5 % (36.0-47.0); HEMOGLOBIN 9.8 g/dl (12.0-15.5); LYMPH % 8.2 % (24.0-44.0); MEAN CORPUSCULAR HEMOGLOBIN 27.5 pg (27.0-33.0); MEAN CORPUSCULAR HGB CONC 29.3 g/dl (32.0-36.5); MEAN CORPUSCULAR VOLUME 94.1 fl (80.0-96.0); MONO # 1.2 10^3/uL (0.0-0.8); MONO % 9.7 % (0.0-5.0); NEUTROPHILS # 9.3 10^3/uL (1.5-8.5); PLATELET COUNT, AUTOMATED 349 10^3/uL (150-450); RED BLOOD COUNT 3.56 10^6/uL (4.00-5.40)
[2020-04-28 05:56] LABS: ERYTHROCYTE SEDIMENTATION RATE 81 mm/hr (0-30)
[2020-04-28 06:23] LABS: BLOOD UREA NITROGEN 16 MG/DL (7-18); CALCIUM LEVEL 8.7 MG/DL (8.8-10.2); CARBON DIOXIDE LEVEL 30 MEQ/L (21-32); CHLORIDE LEVEL 108 MEQ/L (98-107); CREATININE FOR GFR 0.72 MG/DL (0.55-1.30); GLOMERULAR FILTRATION RATE > 60.0 (>45); GLUCOSE, FASTING 110 MG/DL (70-100); POTASSIUM SERUM 4.3 MEQ/L (3.5-5.1); SODIUM LEVEL 140 MEQ/L (136-145)
[2020-04-28 07:49] VITALS: BP 116/61
[2020-04-28] MEDS: LACTOBACILLUS ACIDOPHILUS CAP (BACID) PO SCH (09:15)
[2020-04-28] MEDS: DOCUSATE SODIUM 100MG CAPSULE PO SCH ×2 (09:15→21:07)
[2020-04-28] MEDS: VALSARTAN 80 MG TAB (DIOVAN) PO SCH (09:15)
[2020-04-28] MEDS: HEPARIN SOD (PORCINE) 5000UNITS/ML 1ML VIAL/SYRINGE SC SCH ×2 (09:15→21:06)
[2020-04-28] MEDS: MULTIVITAMINS/MINERALS THERAP 1 TAB PO SCH (09:15)
[2020-04-28] MEDS: amLODIPine 10 MG TAB PO SCH (09:16)
[2020-04-28] MEDS: PERCOCET 5MG/325MG TAB PO PRN (09:16)
[2020-04-28] MEDS: PANTOPRAZOLE 40MG TAB (PROTONIX) PO SCH (09:16)
[2020-04-28] MEDS: ASPIRIN 81 MG ENTERIC TAB PO SCH (09:16)
--- NOTE | 2020-04-28 09:54 | REP ---
INDICATION: empyema COMPARISON: 04/27/2020 TECHNIQUE: PA and lateral. FINDINGS: Left-sided chest tube and left-sided pleuroparenchymal changes appear relatively stable. No new acute process identified. Right hemithorax is clear.. IMPRESSION: No significant change from prior examination. <Electronically signed by Wu Alvarez > 04/28/20 0979
[2020-04-28] MEDS: NORCO, ANEXSIA 5/325MG TABLET (HYDROcodone/ACETAMINOPHEN) PO PRN ×2 (11:49→21:07)
[2020-04-28 12:00] VITALS: BP 109/63
[2020-04-28] MEDS ORDERED: predniSONE 20 MG TAB PO ONE (12:00)
--- NOTE | 2020-04-28 12:11 | IPNPDOC ---
Text Note Date of Service The patient was seen on 04/28/20. NOTE Subjective: No any acute events overnight. Patient complains of increased shor tness of breath with wheezes Objective: GENERAL APPEARANCE: Morbidly obese female HEENT: no scleral icterus, no JVD, EOMI CARDIOVASCULAR: S1S2 LUNGS: Diminished lung sounds bilaterally with mild expiratory wheezes ABDOMEN: soft & not tender w palpitation MUSCULOSKELETAL: no cyanosis, no swelling INTEGUMENT: no generalized pallor NEUROLOGICAL: cranial nerve function from 2-12 intact intact, follows commands, speech not dysarthric Assessment /Plan Mrs. Nicholson is a 65 year old female with HTN, tobacco use, and anxiety who is here with intractable pain. Serial CXR demonstrated enlarging pleural effusion. Discussed with pulmonary and cardiothoracic surgery. Initial CT on admission demonstrated small effusion, but now that it is large. In the setting of pneumonia, pleuritic chest pain, and reproducible pain, it is felt to be an empyema. Cardiothoracic surgery consulted. To be drained today. Plan 1. Pneumonia and empyema Chest tube was placed on (04/26/2020), 35 mL serosanguineous discharge overnight Continue ceftriaxone, continue vancomycin. pleural culture negative. Await for sputum culture Blood culture negative, await pleural fluid culture CT on 04/27/19 showed Decreased left pleural fluid with residual pleural fluid along the posterior mid to upper pleural cavity possibly partially loculated. Dr. Armando will do a tPA pleurolysis today ID follows her Prednisone 40 mg daily 2. Acute kidney injury Resolved 3. Pulmonary hypertension Echo shows 1. Normal global left ventricular systolic function with moderate concentric left ventricular hypertrophy. 2. Aortic valve sclerosis with trivial aortic stenosis, but no aortic regurgitation. 3. Mild mitral regurgitation with trace mitral regurgitation. 4. Mild tricuspid regurgitation with moderately severe pulmonary hypertension, probably overestimated. 5. Possible right pleural effusion noted in limited views. 6. Large calcific plaques noted in the ascending aorta. The patient might benefit from a transesophageal echocardiogram for further evaluation 4. Hypertension Continue home cardioprotective medication 5. New onset atrial fibrillation -TSH and electrolytes within normal -Echocardiogram as described above -Xarelto on hold. Patient has serosanguineous discharge from chest tube. -Will need to follow up with cardiology outpatient Follow-up with hydraulic spinner in the outpatient settings Smoking abuse Patient agreed to stop smoking VS,Fishbone, I+O VS, Fishbone, I+O Laboratory Tests 04/28/20 05:20 Vital Signs Date Time Temp Pulse Resp B/P (MAP) Pulse Ox O2 Delivery O2 Flow Rate FiO2 04/28/20 11:49 18 92 Nasal Cannula 3.0 04/28/20 09:16 66 116/61 04/28/20 07:49 99.0 I&O- Last 24 Hours up to 6 AM 04/28/20 06:00 Intake Total 1560 ml Output Total 1442 ml Balance 118 ml ESTELA SIMPSON DO Apr 28, 2020 12:11
--- NOTE | 2020-04-28 12:26 | IPN ---
PROGRESS NOTE DATE: 04/28/2020 SUBJECTIVE: Ms. Nicholson is feeling a bit down today. I did obtain a CT scan of her yesterday. At the time of dictation, it was not done. It showed that she has a consolidation of the left lower lung, but all the fluid has been removed and does not need a tPA pleurolysis. OBJECTIVE: VITAL SIGNS: Show a T-max of 98.8 with a heart rate that ranges between 66 and 67 in sinus rhythm. Respiratory rate of 18-20 without the use of accessory muscles who is 93% to 96% saturated on 2 liters nasal cannula and whose blood pressure is ranging between 127/67 to 115/60. INTAKE AND OUTPUT: Over the past 24 hours has been recorded as 1710 in and 1721 out for near equality. She has put 71 mL out the chest tube. She weighs 127.3 kg today compared to 126.1 kg the day before. RESPIRATORY: Her lungs show bronchophony and E:A egophony in the left lower hemithorax. Percussion note is dull in the left lower hemithorax. The right lung shows normal vesicular sounds without wheezes, rhonchi, or rales. Percussion note is full to the diaphragm. CARDIAC: Without murmurs, clicks, gallops, or rubs. I cannot feel her PMI. S1 and S2 are normal. ABDOMEN: Soft and nontender. Bowel sounds are positive. There is no hepatomegaly. No CVA tenderness. EXTREMITIES: Show trace pretibial edema. No calf tenderness. No differential swelling of the upper extremities. SKIN: Warm, dry, and perfused without cyanosis or mottling, including that of the nail beds and knees. NECK: Supple. There is no jugular venous distention. No subcutaneous emphysema. Trachea is midline. MOUTH: Shows her mucous membranes to be pink and moist. Lips and gums without lesions and no thrush. EYES: Show her pupils equal and reactive. Extraocular movements are intact. Sclerae nonicteric. NEUROLOGIC: Shows II through XII intact. Normal gross motor, gross sensation intact. Gait is not tested. PSYCHIATRIC: Shows her to be awake, alert, and oriented x3 with appropriate mood and affect and conversational. LABORATORY DATA: Her white count today is 12.0 unchanged from yesterday with a hemoglobin and hematocrit of 9.8 and 33.5 unchanged from yesterday with a platelet count of 349,000 stable. Differential shows 78 neutrophils, 8% lymphocytes, and 9% monocytes. There are no immature forms and no toxic granulations. Her electrolytes are normal with a BUN and creatinine of 16 and 0.72, glucose of 110, and a calcium of 8.7. I discussed her pleural fluid results in yesterday's note being neutrophilic and exudative, but not hypoglycemic. MICROBIOLOGY: Shows nothing growing. Her sputum culture was obtained days after her antibiotics were started. Pleural fluid does not show any growth. IMAGING: Her chest x-ray today shows a dense opacity in the left lower hemithorax unchanged from yesterday. It can clearly be seen on the lateral film additionally. There is no mediastinal shift. IMPRESSION: 1. Left lower lobe pneumonia. 2. Parapneumonic effusion left side. 3. Transient atrial fibrillation, resolved. 4. Anxiety. 5. Hypertension. 6. Unknown murmur. PLAN AND DISCUSSION: Her echocardiogram did not show any vegetations. She has normal left ventricular systolic function with some aortic valve sclerosis with a very small amount of aortic stenosis with mitral regurgitation, which is trace and mild tricuspid regurgitation with moderately severe pulmonary hypertension. Her pulmonary hypertension may be secondary to her pneumonia or underlying chronic obstructive pulmonary disease (COPD) from her smoking or undiagnosed obstructive sleep apnea. We will have to work that up as an outpatient. I will keep her chest tube in place over the next 24 hours and if it does not drain very much by tomorrow, I will probably remove it. She is continuing on Rocephin and vancomycin. I highly doubt we are going to get any positive cultures back at this time. Dr. Obando is now involved in directing her antibiotic care and I will certainly defer to her. I would conjecture she is going to need at least two weeks of antibiotics. We will not be seeing improvement in her chest x-rays for at least a week. She will continue on chest expansion therapy.
[2020-04-28] MEDS: IPRATROPIUM 0.5MG/ALBUTEROL 2.5MG INH SOL UD 3ML (DUONEB) NEB SCH ×2 (14:00→19:19)
[2020-04-28 16:00] VITALS: BP 110/62
[2020-04-28 20:00] VITALS: BP 151/70
[2020-04-28] MEDS: cefTRIAXone SOD 2 GM in D5W MINI-BAG PLUS 50 ML IV SCH (21:07)
[2020-04-29] VITALS: BP 131/64
[2020-04-29] MEDS: PERCOCET 5MG/325MG TAB PO PRN ×3 (00:08→21:56)
[2020-04-29] MEDS: VANCOMYCIN HCL 1,000 MG, VIAL MATE ADAPTER 1 EACH in D5W 250 ML IV SCH (00:09)
[2020-04-29] MEDS: LEVALBUTEROL 1.25 MG/0.5 ML CONCENTRATE NEB NEB SCH ×4 (01:10→19:42)
[2020-04-29] MEDS: IPRATROPIUM 0.5MG/ALBUTEROL 2.5MG INH SOL UD 3ML (DUONEB) NEB SCH ×4 (01:57→19:42)
[2020-04-29] MEDS: KETOROLAC 30 MG/ML 1ML VIAL IV SCH ×4 (03:49→20:30)
[2020-04-29 04:00] VITALS: BP 136/89
[2020-04-29 06:01] LABS: BASO % 0.3 % (0.0-1.0); EOS % 0.3 % (0.0-3.0); HEMATOCRIT 32.7 % (36.0-47.0); HEMOGLOBIN 9.7 g/dl (12.0-15.5); LYMPH % 8.3 % (24.0-44.0); MEAN CORPUSCULAR HEMOGLOBIN 27.3 pg (27.0-33.0); MEAN CORPUSCULAR HGB CONC 29.7 g/dl (32.0-36.5); MEAN CORPUSCULAR VOLUME 92.1 fl (80.0-96.0); MONO # 0.9 10^3/uL (0.0-0.8); MONO % 7.4 % (0.0-5.0); NEUTROPHILS # 9.9 10^3/uL (1.5-8.5); NEUTROPHILS % 81.9 % (36.0-66.0); PLATELET COUNT, AUTOMATED 358 10^3/uL (150-450); RED BLOOD COUNT 3.55 10^6/uL (4.00-5.40); WHITE BLOOD COUNT 12.1 10^3/uL (4.0-10.0)
--- NOTE | 2020-04-29 07:58 | REP ---
INDICATION: empyema COMPARISON: 04/28/2020 TECHNIQUE: PA and lateral. FINDINGS: Left chest tube in stable position with mildly improved aeration to the left hemithorax. Right hemithorax is stable. No obvious pneumothorax identified. Visualized portions of the mediastinum and cardiac silhouette are unchanged. Skeletal structures intact. IMPRESSION: Mildly improved aeration to the left hemithorax. No new acute process appreciated. <Electronically signed by Wu Alvarez > 04/29/20 0756
[2020-04-29 08:00] VITALS: BP_SYST 134; BP_DIAS 6; BP_DIAS 66
[2020-04-29] MEDS: VALSARTAN 80 MG TAB (DIOVAN) PO SCH (09:55)
[2020-04-29] MEDS: ASPIRIN 81 MG ENTERIC TAB PO SCH (09:55)
[2020-04-29] MEDS: LACTOBACILLUS ACIDOPHILUS CAP (BACID) PO SCH (09:55)
[2020-04-29] MEDS: PANTOPRAZOLE 40MG TAB (PROTONIX) PO SCH (09:56)
[2020-04-29] MEDS: predniSONE 20 MG TAB PO SCH (09:56)
[2020-04-29] MEDS: amLODIPine 10 MG TAB PO SCH (09:56)
[2020-04-29] MEDS: MULTIVITAMINS/MINERALS THERAP 1 TAB PO SCH (09:56)
[2020-04-29] MEDS: DOCUSATE SODIUM 100MG CAPSULE PO SCH ×2 (09:56→20:30)
[2020-04-29] MEDS: HEPARIN SOD (PORCINE) 5000UNITS/ML 1ML VIAL/SYRINGE SC SCH ×2 (09:57→20:29)
[2020-04-29 12:00] VITALS: BP 143/66
--- NOTE | 2020-04-29 12:11 | IPNPDOC ---
Text Note Date of Service The patient was seen on 04/29/20. NOTE Subjective: No any acute events overnight. Around 20 mL serosanguineous disch arge from the chest tube overnight. Objective: GENERAL APPEARANCE: Morbidly obese female HEENT: no scleral icterus, no JVD, EOMI CARDIOVASCULAR: irregularly irregular LUNGS: Diminished lung sounds bilaterally with mild expiratory wheezes ABDOMEN: soft & not tender w palpitation MUSCULOSKELETAL: no cyanosis, no swelling INTEGUMENT: no generalized palor NEUROLOGICAL: cranial nerve function from 2-12 intact intact, follows commands, speech not dysarthric Assessment /Plan Mrs. Nicholson is a 65 year old female with HTN, tobacco use, and anxiety who is here with intractable pain. Serial CXR demonstrated enlarging pleural effusion. Discussed with pulmonary and cardiothoracic surgery. Initial CT on admission demonstrated small effusion, but now that it is large. In the setting of pneumonia, pleuritic chest pain, and reproducible pain, it is felt to be an empyema. Plan 1. Pneumonia and empyema Chest tube was placed on (04/26/2020) Continue ceftriaxone, continue vancomycin. pleural culture negative. Blood culture negative CT on 04/27/19 showed Decreased left pleural fluid with residual pleural fluid along the posterior mid to upper pleural cavity possibly partially loculated. ID follows her Prednisone 40 mg daily Continue antibiotics Will discuss with Dr. Armando chest tube removal 2. Acute kidney injury Resolved 3. Pulmonary hypertension Echo shows 1. Normal global left ventricular systolic function with moderate concentric left ventricular hypertrophy. 2. Aortic valve sclerosis with trivial aortic stenosis, but no aortic regurgitation. 3. Mild mitral regurgitation with trace mitral regurgitation. 4. Mild tricuspid regurgitation with moderately severe pulmonary hypertension, probably overestimated. 5. Possible right pleural effusion noted in limited views. 6. Large calcific plaques noted in the ascending aorta. The patient might benefit from a transesophageal echocardiogram for further evaluation 4. Hypertension Continue home cardioprotective medication 5. New onset atrial fibrillation -TSH and electrolytes within normal -Echocardiogram as described above -Xarelto on hold due to chest tube and continuos serosanguineous discharge. -Will need to follow up with cardiology outpatient Smoking abuse Patient agreed to stop smoking VS,Fishbone, I+O VS, Fishbone, I+O Laboratory Tests 04/29/20 05:49 Vital Signs Date Time Temp Pulse Resp B/P (MAP) Pulse Ox O2 Delivery O2 Flow Rate FiO2 04/29/20 10:30 20 Nasal Cannula 2.0 04/29/20 09:56 78 134/68 04/29/20 08:00 98.3 91 I&O- Last 24 Hours up to 6 AM 04/29/20 06:00 Intake Total 1280 ml Output Total 2428 ml Balance -1148 ml ESTELA SIMPSON DO Apr 29, 2020 12:11
[2020-04-29 16:00] VITALS: BP 144/77
--- NOTE | 2020-04-29 16:27 | IPN ---
PROGRESS NOTE DATE: 04/29/2020 Ms. Nicholson is doing better today. She feels better, and her pain is being better controlled at the chest tube insertion site. She is breathing better. Her vital signs show a maximum temperature of 98.3 with a heart rate that ranges between 62-78 in a sinus rhythm, respiratory rate 18-20 without the use of accessory muscles, who is 91%-95% saturated on 2-3 liters nasal cannula, and whose blood pressure is ranging between 131/64 to 143/66. Her intake and output for the past 24 hours has been recorded as 1590 in and 1864 out, for a negativity of 275 mL. She has only put out 14 mL from the chest tube, and there is no air leak. Weight today is 126.6 compared to 127.3 yesterday. She has put out 1850 mL in urine output. PHYSICAL EXAMINATION: She still has bronchophony and E-to-A egophony in the left lower hemithorax. Right side shows normal vesicular sounds. Cardiac exam shows a very faint systolic murmur at the left upper sternal border. I cannot feel her point of maximal impulse (PMI). S1 and S2 are normal. Abdomen is soft and nontender. Bowel sounds are positive. There is no hepatomegaly that I can feel through her obesity. There is no costovertebral angle (CVA) tenderness. Extremities show 1+ pretibial edema, no calf tenderness, no differential swelling of the upper extremities. Her skin is warm, dry, and perfused without cyanosis or mottling, including that of the nailbeds and knees. Neck is supple. There is no jugular venous distention. No subcutaneous emphysema. Trachea is midline. Mouth shows the mucous membranes to be pink and moist. Lips and commissures without lesions. No thrush. Eyes show her pupils to be equal and reactive. Extraocular motion intact. Sclerae anicteric. Neurologic shows II-XII intact. Normal gross motor, gross sensation intact. Gait is not tested. Psychiatric shows her to be awake, alert, and oriented times three with appropriate mood and affect and conversational. Her white count today is 12.1 with a hemoglobin and hematocrit of 9.7 and 32.7, unchanged from yesterday, with a platelet count of 358 and stable. differential social history shows 81% neutrophils, 8% lymphocytes, 7% monocytes. There are no immature forms or toxic granulations. Chemistries today showed normal electrolytes with BUN and creatinine of 16 and 0.72, a glucose of 110, and a calcium of 8.7. Her chest x-ray is unchanged from yesterday. She still has dense consolidation in the left lower hemithorax. Right side shows sharp costophrenic angle with the lung fully expanded to the chest wall. I see no infiltrates on the PA view on the right side. Chest tube is in good place posteriorly. I discussed her chest CT yesterday that I obtained, which showed all the fluid having been drained and with a dense consolidation of her left lower lobe. IMPRESSION: 1. Left lower lobe pneumonia. 2. Parapneumonic effusion, left side. 3. Transient atrial fibrillation, resolved. 4. Anxiety. 5. Hypertension. 6. Unknown murmur. PLAN AND DISCUSSION: I will remove her chest tube today. It is my instinct that she should be on intravenous (IV) antibiotics at least another 48-72 hours and then transition to oral medications. Her microbiology is all negative except now for yeast-like organisms in her sputum, which are only reported a few colonies. I do not think that that at all explains her left lower lobe consolidative pneumonia. She continues to remain on Rocephin. Vancomycin was discontinue today.
[2020-04-29] MEDS: MORPHINE 2 MG/ML 1ML VIAL (J2270) IV PRN (19:16)
[2020-04-29 20:00] VITALS: BP 152/94
[2020-04-29] MEDS ORDERED: FUROSEMIDE 20 MG TAB PO ONE (20:15)
[2020-04-29] MEDS: cefTRIAXone SOD 2 GM in D5W MINI-BAG PLUS 50 ML IV SCH (20:29)
[2020-04-30] VITALS (7 sets, daily range): BP systolic 124–174; BP diastolic 72–98; PULSE 97
[2020-04-30] MEDS ORDERED: MORPHINE 2 MG/ML 1ML VIAL (J2270) IV ONE (01:00)
--- NOTE | 2020-04-30 01:07 | REPVR ---
PROCEDURE INFORMATION: Exam: XR Chest, 1 View Exam date and time: 04/30/2020 12:45 AM Age: 65 years old Clinical indication: Shortness of breath; Additional info: SOB, chest tube was removed today. TECHNIQUE: Imaging protocol: XR of the chest Views: 1 view. COMPARISON: CR Chest, 2 view PA, Lat 04/29/2020 7:45 AM FINDINGS: Tubes, catheters and devices: Interval removal of left base chest tube. Lungs: There is slight right infrahilar clearing since the prior study. Slightly decreased left perihilar infiltrate with persistent left lung atelectasis. Pleural space: Minimal right pleural effusion which is slightly decreased since the prior study. Mild left pleural effusion which is similar. No pneumothorax. Heart/Mediastinum: The heart and mediastinum are unchanged. Bones/joints: Unremarkable. Soft tissues: There are moderately generous overlying soft tissues. IMPRESSION: 1. Interval removal of left base chest tube since 04/29/2020. No pneumothorax. 2. Minimal right pleural effusion which is decreased since the prior study. 3. Slightly decreased right infrahilar and left perihilar infiltrates since the prior study. 4. Otherwise stable chest. Electronically signed by: Maximiliano Winters On 04/30/2020 01:07:52 AM
[2020-04-30] MEDS: IPRATROPIUM 0.5MG/ALBUTEROL 2.5MG INH SOL UD 3ML (DUONEB) NEB SCH ×4 (02:00→20:00)
[2020-04-30] MEDS: LEVALBUTEROL 1.25 MG/0.5 ML CONCENTRATE NEB NEB SCH ×3 (02:15→13:40)
[2020-04-30] MEDS: KETOROLAC 30 MG/ML 1ML VIAL IV SCH (04:14)
[2020-04-30 06:02] LABS: BASO # 0.1 10^3/uL (0.0-0.2); BASO % 0.6 % (0.0-1.0); EOS # 0.1 10^3/uL (0.0-0.5); EOS % 0.9 % (0.0-3.0); LYMPH # 1.6 10^3/uL (1.5-5.0); LYMPH % 13.7 % (24.0-44.0); MEAN CORPUSCULAR HEMOGLOBIN 27.8 pg (27.0-33.0); MEAN CORPUSCULAR HGB CONC 30.3 g/dl (32.0-36.5); MEAN CORPUSCULAR VOLUME 91.7 fl (80.0-96.0); MONO % 8.6 % (0.0-5.0); NEUTROPHILS # 8.4 10^3/uL (1.5-8.5); NEUTROPHILS % 72.2 % (36.0-66.0); PLATELET COUNT, AUTOMATED 411 10^3/uL (150-450); WHITE BLOOD COUNT 11.6 10^3/uL (4.0-10.0)
[2020-04-30] MEDS: MOXIFLOXACIN 400 MG TAB PO SCH (06:22)
[2020-04-30 06:32] LABS: BLOOD UREA NITROGEN 22 MG/DL (7-18); CALCIUM LEVEL 8.8 MG/DL (8.8-10.2); CARBON DIOXIDE LEVEL 29 MEQ/L (21-32); CHLORIDE LEVEL 108 MEQ/L (98-107); CREATININE FOR GFR 0.84 MG/DL (0.55-1.30); GLOMERULAR FILTRATION RATE > 60.0 (>45); GLUCOSE, FASTING 134 MG/DL (70-100); POTASSIUM SERUM 4.5 MEQ/L (3.5-5.1); SODIUM LEVEL 143 MEQ/L (136-145)
[2020-04-30] MEDS: PERCOCET 5MG/325MG TAB PO PRN ×3 (07:27→21:36)
--- NOTE | 2020-04-30 07:59 | REP ---
INDICATION: empyema COMPARISON: 04/29/2020 TECHNIQUE: PA and lateral. FINDINGS: Moderate left pleuroparenchymal changes and mild right basilar pleuroparenchymal changes remain essentially stable. No significant improvement and no obvious new process appreciated. No evidence for pneumothorax. IMPRESSION: Stable appearance of the bilateral lung gutierrez. No significant improvement or new process appreciated. <Electronically signed by Wu Alvarez > 04/30/20 0106
[2020-04-30] MEDS ORDERED: SLF 3 ML SYR IV PRN (08:00)
[2020-04-30] MEDS: predniSONE 20 MG TAB PO SCH (08:44)
[2020-04-30] MEDS: LACTOBACILLUS ACIDOPHILUS CAP (BACID) PO SCH (08:44)
[2020-04-30] MEDS: ASPIRIN 81 MG ENTERIC TAB PO SCH (08:44)
[2020-04-30] MEDS: HEPARIN SOD (PORCINE) 5000UNITS/ML 1ML VIAL/SYRINGE SC SCH (08:44)
[2020-04-30] MEDS: DOCUSATE SODIUM 100MG CAPSULE PO SCH ×2 (08:45→21:34)
[2020-04-30] MEDS: MULTIVITAMINS/MINERALS THERAP 1 TAB PO SCH (08:45)
[2020-04-30] MEDS: VALSARTAN 80 MG TAB (DIOVAN) PO SCH (08:45)
[2020-04-30] MEDS: amLODIPine 10 MG TAB PO SCH (08:45)
[2020-04-30] MEDS: PANTOPRAZOLE 40MG TAB (PROTONIX) PO SCH (08:45)
--- NOTE | 2020-04-30 09:50 | IPN ---
PROGRESS NOTE DATE: 04/29/2020 SUBJECTIVE: Ana Laura was sitting in her chair eating her dinner. She is anxious to go home. She feels so much better. She asked me to call her son who is a registered nurse to discuss her case. Her son was concerned that her white count was still elevated at 12,000 without any improvement. Patient has remained afebrile. She denies any chest pain. Chest tube was removed today. She is concerned about some increased edema, weight gain, and fluid retention. She was started on prednisone by the hospitalist today at 40 mg daily. I and O yesterday 1590 in and 1864 out with a negative balance of 274. Today 1460 intake, output 1520 with a negative 60 balance. OBJECTIVE: GENERAL APPEARANCE: Pleasant female, inadequately. Looks well on 2 liters oxygen. HEENT: Oropharynx is clear with no thrush. HEART: Normal S1, S2. No murmurs appreciated. LUNGS: Diminished breath sounds at the bases, but clear. ABDOMEN: Obese, soft, and nontender. EXTREMITIES: +1 pitting edema. LABORATORY DATA: White count 12.1, hemoglobin 9.7, hematocrit 33.7, platelets 358,000. White count on admission was 24.3. Sodium 140, potassium 4.3, chloride 108, bicarb 30, BUN 16, creatinine 0.72, glucose 110, calcium 8.7, and CRP 26.2 down from 34.8. Sputum had yeast like organism. AFB, fungal smear, and culture are all pending. Pleural fluid aerobic anaerobic was negative and blood cultures were no growth. Echocardiogram done on 04/25/2020, showed no pericardial effusion, mildly calcific aortic valve, mild left atrial enlargement, and normal ejection fraction. Her PA systolic pressure is 60 to 70 and she has moderate to severe pulmonary hypertension, possibly overestimated. Patient will receive Lasix 20 mg p.o. tonight and repeat CBC, BMP, and CRP in the morning. IMPRESSION: 1. Pneumonia with a parapneumonic effusion culture negative. The patient has been on vancomycin and Rocephin. She will be switched tomorrow to moxifloxacin to cover for typical pathogens, atypical, as well as anaerobes. Urine Legionella antigen and pneumococcal antigens were also negative. Other possibility would be fungal infection. Fungal smear and culture are still pending. Patient had no recent travel and does not have any animals. 2. Tobacco abuse. Patient will remain abstinent. 3. Fluid retention. Patient will be given a dose of Lasix as she feels very bloated and would like to diurese. PLAN She would like to be home in the next one to two days with moxifloxacin for 7-10 days MTDD
[2020-04-30] MEDS: NORCO, ANEXSIA 5/325MG TABLET (HYDROcodone/ACETAMINOPHEN) PO PRN ×3 (10:29→22:11)
--- NOTE | 2020-04-30 11:20 | IPNPDOC ---
Text Note Date of Service The patient was seen on 04/30/20. NOTE Subjective: Pt had some chest discomfort overnight, troponin negative. Patient stated that she feels better, no wheezes. Small amount of pinkish discharge on the dressing after chest tube removal Objective: GENERAL APPEARANCE: Morbidly obese female HEENT: no scleral icterus, no JVD, EOMI CARDIOVASCULAR: irregularly, irregular LUNGS: Diminished lung sounds bilaterally ABDOMEN: soft & not tender w palpitation MUSCULOSKELETAL: no cyanosis, no swelling INTEGUMENT: no generalized pallor NEUROLOGICAL: cranial nerve function from 2-12 intact intact, follows commands, speech not dysarthric Assessment /Plan Mrs. Nicholson is a 65 year old female with HTN, tobacco use, and anxiety who is here with intractable pain. Serial CXR demonstrated enlarging pleural effusion. Discussed with pulmonary and cardiothoracic surgery. Initial CT on admission demonstrated small effusion, but now that it is large. In the setting of pneumonia, pleuritic chest pain, and reproducible pain, it is felt to be an empyema. Plan 1. Pneumonia and empyema Chest tube was placed on (04/26/2020) Continue with moxifloxacin Blood culture negative Urine Legionella antigen and pneumococcal antigens were also negative CT on 04/27/19 showed Decreased left pleural fluid with residual pleural fluid along the posterior mid to upper pleural cavity possibly partially loculated. ID follows her Prednisone [address] Armando removed chest tube yesterday 2. Acute kidney injury Resolved 3. Pulmonary hypertension Echo shows 1. Normal global left ventricular systolic function with moderate concentric left ventricular hypertrophy. 2. Aortic valve sclerosis with trivial aortic stenosis, but no aortic regurgitation. 3. Mild mitral regurgitation with trace mitral regurgitation. 4. Mild tricuspid regurgitation with moderately severe pulmonary hypertension, probably overestimated. 5. Possible right pleural effusion noted in limited views. 6. Large calcific plaques noted in the ascending aorta. The patient might benefit from a transesophageal echocardiogram for further evaluation 4. Hypertension Continue home cardioprotective medication 5. New onset atrial fibrillation -TSH and electrolytes within normal -Echocardiogram as described above According to Up to date DOAC should be restarted in 48 days after chest tube removal. I explained to the patient the risks and benefits of anticoagulation after chest tube removal. Patient agreed to wait 48 hours after chest tube removal -Will need to follow up with cardiology outpatient will repeat ekg Metoprolol 12.5 mg BID Smoking abuse Patient agreed to stop smoking VS,Earl, I+O VS, Fishbone, I+O Laboratory Tests 04/30/20 05:40 Vital Signs Date Time Temp Pulse Resp B/P (MAP) Pulse Ox O2 Delivery O2 Flow Rate FiO2 04/30/20 10:59 18 Nasal Cannula 2.0 04/30/20 08:45 169/93 04/30/20 08:45 70 04/30/20 07:57 97.6 95 I&O- Last 24 Hours up to 6 AM 04/30/20 06:00 Intake Total 1220 ml Output Total 1800 ml Balance -580 ml ESTELA SIMPSON DO Apr 30, 2020 11:20
[2020-04-30] MEDS: SLF 3 ML SYR IV SCH ×2 (13:37→21:41)
[2020-04-30] MEDS ORDERED: FUROSEMIDE 40MG/4ML VIAL (J1940) IV ONE (14:00)
--- NOTE | 2020-04-30 16:18 | IPN ---
PROGRESS NOTE DATE: 04/30/2020 Ana Laura had an episode of chest pain overnight and atrial fibrillation. She is being evaluated by cardiology. Troponins were negative. She has a minimal cough and mild shortness of breath. Her oxygen saturations are still less than 90% without oxygen, on oxygen 97% on 2 liters. She is not wheezing. LABORATORY DATA: White count 11.6, hemoglobin 10, hematocrit 33, platelets 411, 72% neutrophils, 13% lymphocytes, 8% monocytes, ESR 81. Sodium 143, potassium 4.5, chloride 108, bicarbonate 29, BUN 22, creatinine 0.8, bicarbonate 29, BUN 22, creatinine 0.84, glucose 134, calcium 8.8. Troponin less than 0.02. CRP down to 13.5. PHYSICAL EXAMINATION: Temperature 97.6, pulse 64, respirations 18, blood pressure 162/88, oxygen saturation 97% on 2 liters nasal cannula. HEART: Normal S1, S2, distant. No murmurs appreciated. LUNGS: Diminished breath sounds at the left base but no wheezes. ABDOMEN: Obese, soft, nontender. EXTREMITIES: Trace edema. Intake and output yesterday, She diuresed about 760 mL negative balance. IMPRESSION: 1. Left lower lobe pneumonia with pleural effusion, status post thoracentesis and removal of chest tube, doing much better. Effusion was parapneumonic. Cultures were negative. A pH was 7.55. Patient switched to moxifloxacin 400 mg by mouth daily, currently day #1, started on April 30, day #8 of total antibiotics. 2. Atrial fibrillation and chest pain, being evaluated by cardiology. 3. Fluid overload. Patient was given a dose of Lasix yesterday, and I suspect she will need more. She received another dose this afternoon of 40 mg IV. PLAN: Continue moxifloxacin for a total of 7 days, which will complete 2 weeks of antibiotics. Infectious disease signing off.
[2020-04-30] MEDS: METOPROLOL TART 12.5 MG PER 1/2 TAB PO SCH (16:58)
[2020-04-30] MEDS ORDERED: RIVAROXABAN 20 MG TAB (XARELTO) PO SCH (18:00)
[2020-04-30] MEDS ORDERED: HEPARIN SOD (PORCINE) 5000UNITS/ML 1ML VIAL/SYRINGE SQ SCH (21:00)
[2020-05-01] VITALS: BP 123/71
[2020-05-01] MEDS: IPRATROPIUM 0.5MG/ALBUTEROL 2.5MG INH SOL UD 3ML (DUONEB) NEB SCH ×5 (01:10→19:58)
[2020-05-01] MEDS: PERCOCET 5MG/325MG TAB PO PRN ×4 (02:52→23:04)
[2020-05-01 04:00] VITALS: BP 138/82
[2020-05-01] MEDS: MOXIFLOXACIN 400 MG TAB PO SCH (05:25)
[2020-05-01] MEDS: NORCO, ANEXSIA 5/325MG TABLET (HYDROcodone/ACETAMINOPHEN) PO PRN (05:26)
[2020-05-01] MEDS: SLF 3 ML SYR IV SCH ×3 (05:26→21:51)
[2020-05-01 05:39] LABS: BASO # 0.1 10^3/uL (0.0-0.2); BASO % 0.4 % (0.0-1.0); EOS # 0.2 10^3/uL (0.0-0.5); EOS % 1.3 % (0.0-3.0); HEMATOCRIT 35.7 % (36.0-47.0); LYMPH # 2.2 10^3/uL (1.5-5.0); LYMPH % 18.9 % (24.0-44.0); MEAN CORPUSCULAR HEMOGLOBIN 28.4 pg (27.0-33.0); MEAN CORPUSCULAR HGB CONC 30.8 g/dl (32.0-36.5); MEAN CORPUSCULAR VOLUME 92.2 fl (80.0-96.0); NEUTROPHILS % 67.1 % (36.0-66.0); PLATELET COUNT, AUTOMATED 440 10^3/uL (150-450); RED BLOOD COUNT 3.87 10^6/uL (4.00-5.40); WHITE BLOOD COUNT 11.9 10^3/uL (4.0-10.0)
--- NOTE | 2020-05-01 07:50 | CR ---
CARDIOLOGY CONSULTATION (REMOTE) DATE: 04/30/2020 REFERRING PHYSICIAN: Dr. Cali Armando INDICATION: Recurrent paroxysms of atrial fibrillation. 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 Good, family medicine at [facility] for multiple medical problems including obesity, longstanding smoking history and hypertension. The patient presented to [facility] ER April 23, 2020 with intractable shortness of breath and left-sided chest pain that was pleuritic. Initial vital signs showed a heart rate of 94 beats per minute in sinus rhythm, blood pressure 121/67, respiratory rate 18 with O2 saturation 92% on room air and she was afebrile. Chest x-ray documented cardiomegaly with somewhat tortuous thoracic aorta with focal consolidation, left base with associated extensive atelectasis and possibly pleural effusion. Chest CT angiogram showed no evidence of pulmonary embolism with small to moderate areas of bibasilar consolidation with small pleural effusion and scattered atelectasis. There was moderate cardiomegaly without pericardial effusion. Admission EKG showed sinus rhythm with left ventricular hypertrophy. Admission proBNP level was only slightly increased. She was COVID negative. She was admitted to a telemetry unit for suspected community acquired pneumonia with associated pleurisy. Started on combination parenteral antibiotic therapy with analgesic therapy for her pleuritic pain. Remained on Losartan and chlorothiazide for her blood pressure. Serial troponin I levels were negative. While on telemetry, bouts of atrial fibrillation with controlled ventricular responses had been documented, controlled on low dose beta kristine therapy. Had been on Xarelto but this was withheld with chest tube insertion to drain proven pleural effusion. Infectious disease has been involved in her care and has helped coordinate appropriate antibiotic therapy. Echocardiogram was performed April 25, 2020 and this was reviewed independently showing mild concentric left ventricular hypertrophy with normal wall motion with mildly dilated left atrium. Right heart chamber sizes appear to be normal but further evaluation was challenging in light of the patient's body habitus and technical difficulties. No evidence of significant valvular disease. During bouts of atrial fibrillation, the patient has been completely asymptomatic. Consultation was placed earlier today with a concern of the recurrent bouts of atrial fibrillation and current lack of oral anticoagulant therapy. I discussed her case at some length with the hospitalist currently involved in her care. The patient's overall status has been gradually improving. She has paroxysmal atrial fibrillation with controlled ventricular rate likely related to her underlying hypertensive heart disease and her acute pneumonia. Her anticoagulant therapy has been temporarily placed on hold because of serosanguinous pleural drainage. IMPRESSION/PLAN: 1. Paroxysmal atrial fibrillation: Clearly related to her structural heart disease - left ventricular hypertrophy with LV diastolic dysfunction and mildly dilated left atrium. These findings are undoubtedly related to her obesity and chronic hypertension. The triggering event as mentioned, her acute pulmonary infection. On her current beta kristine therapy, her average ventricular response has been controlled and the patient is asymptomatic. The Xarelto oral anticoagulation has been temporarily placed on hold because of serosanguineous pleural drainage. It is well recognized in the literature that patients with paroxysmal atrial fibrillation have a lower incidence of stroke and systemic embolic events than sustained atrial fibrillation and in this circumstance with her arrhythmia triggered by her pneumonia, we would anticipate she may convert spontaneously once her acute intrathoracic process has resolved. All the same, I believe it would be nails at this time to continue with rate control and resume her oral anticoagulant after an additional 24 hours. Would defer primary antiarrhythmic therapy in light of the ongoing intrathoracic process. 2. Heart failure (diastolic/acute on chronic): A chief cause of her dyspnea is undoubtedly related to her acute infectious process which is improving. Her PA and left lateral chest x-ray taken earlier today was also reviewed independently and does not currently appear to have evidence of pulmonary venous congestion. Currently adequately oxygenated with supplemental oxygen by nasal prongs at two liters. Remains on a low sodium diet. While in hospital, associated with IV fluid administration. The patient has gained approximately 6 kilograms and her primary physician has been administering diuretic therapy appropriately. BUN on admission was 17 and had increased to 32, currently 22 with creatinine of 0.8. Would recommend continued modest salt intake restriction with diuretic therapy and continued control of her ventricular response, atrial fibrillation. 3. Hypertensive heart disease (benign with heart failure): Judging from her echocardiographic appearance, this process has been of some duration. Blood pressure has fluctuated in the hospital but presently controlled at 124/72 following her diuretic therapy. Remains on combination metoprolol, angiotensin receptor kristine and amlodipine. 4. Abnormal EKG: Despite her multiple coronary risk factors and ongoing heavy smoking history (patient shows no interest in stopping), she has been free of symptom or sign of acute ischemia. Remains on protective combination medical therapy, metoprolol, angiotensin receptor kristine and will be restarted on Xarelto. 5. Obesity (BMI 43): Condition of some longstanding, certainly not responding to her current dietary measures. Undoubtedly contributing to her left ventricular hypertrophy and disability. Remarkably recent pulmonary function study done at [facility] was within normal limits. I will continue to follow her remotely with you and appreciate the opportunity to participate in her care. Best regards. Yours sincerely, Mohsen Robert MD, FACC Janet Obando MD [facility]ALK[facility]
[2020-05-01 08:00] VITALS: BP_SYST 148; BP_DIAS 1; BP_DIAS 91
[2020-05-01 08:00] LABS: BLOOD UREA NITROGEN 22 MG/DL (7-18); CALCIUM LEVEL 8.7 MG/DL (8.8-10.2); CARBON DIOXIDE LEVEL 33 MEQ/L (21-32); CHLORIDE LEVEL 105 MEQ/L (98-107); CREATININE FOR GFR 0.77 MG/DL (0.55-1.30); GLOMERULAR FILTRATION RATE > 60.0 (>45); GLUCOSE, FASTING 99 MG/DL (70-100); MAGNESIUM LEVEL 2.1 MG/DL (1.8-2.4); POTASSIUM SERUM 4.3 MEQ/L (3.5-5.1); SODIUM LEVEL 143 MEQ/L (136-145)
--- NOTE | 2020-05-01 08:02 | REP ---
INDICATION: empyema COMPARISON: 04/30/2020 TECHNIQUE: PA and lateral. FINDINGS: Significant pleuroparenchymal changes involving the left hemithorax remain relatively stable. Right hemithorax is relatively well aerated although minimal residual medial right basilar atelectasis cannot be excluded. No pneumothorax. Mediastinum and cardiac silhouette are incompletely evaluated due to overlying opacities (left greater than right). IMPRESSION: 1. Left sided pleuroparenchymal changes are unchanged. 2. No new acute process. 3. Subtle medial right basilar atelectasis cannot be excluded. <Electronically signed by Wu Alvarez > 05/01/20 0752
[2020-05-01] MEDS: METOPROLOL TART 12.5 MG PER 1/2 TAB PO SCH ×2 (09:13→20:37)
[2020-05-01] MEDS: LACTOBACILLUS ACIDOPHILUS CAP (BACID) PO SCH (09:13)
[2020-05-01] MEDS: ASPIRIN 81 MG ENTERIC TAB PO SCH (09:13)
[2020-05-01] MEDS: VALSARTAN 80 MG TAB (DIOVAN) PO SCH (09:13)
[2020-05-01] MEDS: amLODIPine 10 MG TAB PO SCH (09:14)
[2020-05-01] MEDS: MULTIVITAMINS/MINERALS THERAP 1 TAB PO SCH (09:14)
[2020-05-01] MEDS: predniSONE 20 MG TAB PO SCH (09:14)
[2020-05-01] MEDS: PANTOPRAZOLE 40MG TAB (PROTONIX) PO SCH (09:14)
[2020-05-01] MEDS: DOCUSATE SODIUM 100MG CAPSULE PO SCH ×2 (09:14→20:36)
[2020-05-01] MEDS: FUROSEMIDE 40MG/4ML VIAL (J1940) IV SCH ×2 (09:15→16:07)
--- NOTE | 2020-05-01 11:16 | ECGEPIP ---
[facility] Test Date: 2020-04-30 Pat Name: ZEHRA [place] Department: Room: [place] [address] Gender: Female Prepress Specialist: PILO : [id number] Requested By: Tiera Garrison Order Number: [id number] Reading MD: Mohsen Reyes Measurements Intervals [place] Rate: 86 P: MT: 0 QRS: -12 QRSD: 115 T: -9 QT: 328 QTc: 392 Interpretive Statements Underlying atrial fibrillation with controlled ventricular response Somewhat slow precordial R wave progression with persistent S waves V5 and V6, a and inferior Q waves; body habitus versus pulmonary disease. Could not rule out p prior IWMI. Evolutionary inferior ST/T wave changes from 04/25/20 Clinical correlation advised Electronically Signed on 05-01-2020 11:16:27 EST by Mohsen Reyes
[2020-05-01 12:00] VITALS: BP_SYST 132; BP_DIAS 2; BP_DIAS 72
[2020-05-01] MEDS: traMADol 50 MG TAB PO PRN ×2 (12:36→20:36)
--- NOTE | 2020-05-01 12:59 | IPN ---
PROGRESS NOTE DATE: 05/01/2020 SUBJECTIVE: Mr. Nicholson is sitting up comfortably and feels a bit better today. She is in and out of atrial fibrillation with a relatively controlled rate; although when she walked this morning, it was up to 150. Cardiology has seen her and she is now started on anticoagulation and metoprolol. She is breathing well. OBJECTIVE: VITAL SIGNS: Show a T-max of 97.8 with a heart rate that ranges between 72 and 115 in and out of atrial fibrillation and sinus rhythm. Respiratory rate of 18-20 without the use of accessory muscles who is 91% to 95% saturated on 2 liters nasal cannula and whose blood pressure ranges between 148/91 to 123/71. INTAKE AND OUTPUT: Over the past 24 hours has been recorded as 1200 in and 300 out. Chest tube was removed two days ago. Weight today is 115 kg compared to 124.6 kg yesterday. I have my doubts about the accuracy of the weights. She has put out 1300 mL in urine in the last 12 hours in response to Lasix. RESPIRATORY: She still has bronchophony and E:A egophony in the left lower hemithorax. Percussion note is still dull in the left hemithorax. The right lung shows normal vesicular sounds. CARDIAC: Shows a 2/6 murmur at the left and right upper sternal borders. I cannot feel her PMI. S1 and S2 are normal. At the time of examination, she had an irregular rate and rhythm. ABDOMEN: Soft and nontender. Bowel sounds are positive. There is no hepatomegaly that I can feel through her obesity. There was no CVA tenderness. Bowel sounds are positive. EXTREMITIES: Still show 1+ pretibial edema. No calf tenderness. No differential swelling of the upper extremities. SKIN: Warm, dry, and perfused without cyanosis or mottling, including that of the nail beds and knees. NECK: Supple. There is no jugular venous distention. No subcutaneous emphysema. Trachea is midline. MOUTH: Shows her mucous membranes to be pink and moist. Lips and gums without lesions and no thrush. EYES: Show her pupils equal and reactive. Extraocular movements are intact. Sclerae nonicteric. NEUROLOGIC: Shows II through XII intact. Normal gross motor, gross sensation intact. Gait is not tested. PSYCHIATRIC: Shows her to be awake, alert, and oriented x3 with appropriate mood and affect and conversational. LABORATORY DATA: Her white count today is 11.9 with a hemoglobin and hematocrit of 11.0 and 35.7 respectively. Platelet count is 440. Her H&H are stable from yesterday and in fact a little bit improved. Her chemistries today show an increased total CO2 of 35 with a BUN and creatinine of 22 and 0.77, glucose of 99, and a calcium of 8.7. Magnesium is 2.1. IMAGING: Her chest x-ray today still shows opacity in the left lower hemithorax. Cardiac shadow is in the midline. There may be a little bit more clearing in the left lower hemithorax. I think she has a vascular congestion and cephalization of vessels also in the right upper thoraces. ASSESSMENT: 1. Left lower lobe pneumonia. 2. Parapneumonic effusion, left side. 3. Transient atrial fibrillation continuing. 4. Anxiety. 5. Hypertension. 6. Aortic sclerosis. PLAN AND DISCUSSION: She is continuing on antibiotics, which consists of p.o. Avelox. With that, her white count has been stable and she is afebrile. Her pneumonia will eventually clear, but it will take a number of weeks for the x-ray to markedly improve. She has hypertensive heart disease and is now being addressed by cardiology. I appreciate Dr. Reyes seeing her in consultation.
--- NOTE | 2020-05-01 13:40 | IPN ---
PROGRESS NOTE DATE: 04/30/2020 SUBJECTIVE: Ms. Nicholson had some chest pain last night and was found to be in atrial fibrillation. She has been in and out of atrial fibrillation since admission. Troponins were negative. OBJECTIVE: VITAL SIGNS: Now show a T-max of 98.8 with a heart rate that ranges between 64 and 97 now in sinus rhythm. Heart rate of 64 to 97 in sinus rhythm. Respiratory rate of 16-18 without the use of accessory muscles who is 93% to 97% saturated on 3 liters nasal cannula and whose blood pressure is ranging between 152/92 to 169/93. RESPIRATORY: She has noisy breathing on the right side and decreased bronchophony and E:A egophony on the left lower hemithorax. Percussion note is dull in the left lower hemithorax. Her bronchophony has improved and it is not as marked as it has been in the past few days and certainly on the day of my consultation. CARDIAC: Shows a soft systolic murmur at the left upper sternal border. I cannot feel her PMI. S1 and S2 are normal. ABDOMEN: Soft and nontender. Bowel sounds are positive. I cannot appreciate hepatomegaly through her obesity. There is no CVA tenderness. EXTREMITIES: Show 1+ pretibial edema a little more on the left than the right. There is no differential swelling of the upper extremities. SKIN: Warm, dry, and perfused without cyanosis or mottling, including that of the nail beds and knees. NECK: Supple. There is no jugular venous distention. No subcutaneous emphysema. Trachea is midline. MOUTH: Shows the mucous membranes to be pink and moist. Lips and gums without lesions and no thrush. EYES: Show her pupils equal and reactive. Extraocular movements are intact. Sclerae nonicteric. NEUROLOGIC: Shows II through XII intact. Normal gross motor, gross sensation intact. Gait is not tested. PSYCHIATRIC: Shows her to be awake, alert, and oriented x3 with appropriate mood and affect and conversational. LABORATORY DATA: Her white count today is 11.6 slightly down from 12.1 yesterday. Hemoglobin and hematocrit are 10.0 and 33.0 with a platelet count of 411,000 and stable. Differential shows 72% neutrophils, 13% lymphocytes, and 8% monocytes. There are no immature forms and no toxic granulations. Her electrolytes are normal with a BUN and creatinine of 22 and 0.84 with a glucose of 134 and a calcium of 8.8. As noted in the introduction, her troponin last night was less than 0.02. DIAGNOSTIC STUDIES: Her EKG from last night shows atrial fibrillation. Rate of approximately 100. Her chest x-ray today still shows opacity in the left lower hemithorax with maybe minimal improvement over the past 24 hours. ASSESSMENT: 1. Left lower lobe pneumonia. 2. Parapneumonic effusion/empyema, left side. 3. Transient intermittent atrial fibrillation. 4. Anxiety. 5. Hypertension. 6. Minimal aortic sclerosis. 7. Pulmonary hypertension. PLAN AND DISCUSSION: She has now been converted to oral Avelox. Her echocardiogram done on 04/25, showed normal systolic function with aortic valve sclerosis with minimal to trivial aortic stenosis. She is also noted to have tricuspid regurgitation with severe pulmonary hypertension. Now patient should be worked up for sleep apnea. I have asked cardiology to see her for her intermittent atrial fibrillation. There is absolutely no reason why she should not be anticoagulated. She should have been anticoagulated since yesterday with removal of the chest tube, particularly in light of new onset atrial fibrillation. She remains afebrile and cardiology is amenable to her leaving tomorrow and I have no objection. She should come back to see me in one week in the office with a chest x-ray for post hospitalization follow-up.
[2020-05-01] MEDS: APIXABAN 5 MG TAB (ELIQUIS) PO SCH ×2 (14:51→20:35)
--- NOTE | 2020-05-01 15:08 | IPNPDOC ---
Text Note Date of Service The patient was seen on 05/01/20. NOTE Subjective: Patient complains of generalized weakness, she stated that she has increased shortness of breath when she walking Objective: GENERAL APPEARANCE: Morbidly obese female HEENT: no scleral icterus, no JVD, EOMI CARDIOVASCULAR: irregularly, irregular LUNGS: Diminished lung sounds bilaterally ABDOMEN: soft & not tender w palpitation MUSCULOSKELETAL: no cyanosis, no swelling INTEGUMENT: no generalized pallor NEUROLOGICAL: cranial nerve function from 2-12 intact intact, follows commands, speech not dysarthric Assessment /Plan Mrs. Nicholson is a 65 year old female with HTN, tobacco use, and anxiety who is here with intractable pain. Serial CXR demonstrated enlarging pleural effusion. Discussed with pulmonary and cardiothoracic surgery. Initial CT on admission demonstrated small effusion, but now that it is large. In the setting of pneumonia, pleuritic chest pain, and reproducible pain, it is felt to be an empyema. Plan 1. Pneumonia and empyema Chest tube was placed on (04/26/2020) Blood culture negative Urine Legionella antigen and pneumococcal antigens were also negative CT on 04/27/19 showed Decreased left pleural fluid with residual pleural fluid along the posterior mid to upper pleural cavity possibly partially loculated. ID recommended moxifloxacin Prednisone [address] Armando removed chest tube on 04/29/20 2. Acute kidney injury Resolved 3. Pulmonary hypertension Echo shows 1. Normal global left ventricular systolic function with moderate concentric left ventricular hypertrophy. 2. Aortic valve sclerosis with trivial aortic stenosis, but no aortic regurgitation. 3. Mild mitral regurgitation with trace mitral regurgitation. 4. Mild tricuspid regurgitation with moderately severe pulmonary hypertension, probably overestimated. 5. Possible right pleural effusion noted in limited views. 6. Large calcific plaques noted in the ascending aorta. The patient might benefit from a transesophageal echocardiogram for further evaluation 4. Hypertension Continue home cardioprotective medication After Lasix IV blood pressure better controlled 5. New onset atrial fibrillation -TSH and electrolytes within normal -Echocardiogram as described above -restart Eliquis tonight According to Up to date DOAC should be restarted in 48 days after chest tube removal. I explained to the patient the risks and benefits of anticoagulation after chest tube removal. Patient agreed to wait 48 hours after chest tube removal. Lighting Fixtures Decorator Dr. Reyes recommended to postpone the anticoagulation for 48 hours after chest tube removal as well -Will need to follow up with cardiology outpatient EKG was repeated yesterday, showed atrial fibrillation with no acute ischemic changes Metoprolol 12.5 mg BID. Rate controlled for now Smoking abuse Patient agreed to stop smoking CHF exacerbation BNP elevated to 8989 Most likely to volume overload Continue Lasix Fluid restriction Cardiac diet Obesity bmi 39.9 Complicated care VS,Fishbone, I+O VS, Fishbone, I+O Laboratory Tests 05/01/20 04:52 Vital Signs Date Time Temp Pulse Resp B/P (MAP) Pulse Ox O2 Delivery O2 Flow Rate FiO2 05/01/20 13:06 18 Nasal Cannula 2.0 05/01/20 12:00 97.8 72 132/72 (92) 93 I&O- Last 24 Hours up to 6 AM 05/01/20 06:00 Intake Total 1710 ml Output Total 900 ml Balance 810 ml ESTELA SIMPSON DO May 01, 2020 15:08
[2020-05-01 16:00] VITALS: BP 146/74
[2020-05-01] MEDS ORDERED: RIVAROXABAN 20 MG TAB (XARELTO) PO SCH (18:00)
[2020-05-01 20:00] VITALS: BP 147/75
[2020-05-02] VITALS: BP 156/74
[2020-05-02] MEDS: IPRATROPIUM 0.5MG/ALBUTEROL 2.5MG INH SOL UD 3ML (DUONEB) NEB SCH ×4 (01:32→20:05)
[2020-05-02] MEDS: NORCO, ANEXSIA 5/325MG TABLET (HYDROcodone/ACETAMINOPHEN) PO PRN (01:58)
[2020-05-02 04:00] VITALS: BP 130/92
[2020-05-02 04:29] LABS: BASO # 0.1 10^3/uL (0.0-0.2); BASO % 0.4 % (0.0-1.0); EOS # 0.2 10^3/uL (0.0-0.5); EOS % 1.2 % (0.0-3.0); HEMATOCRIT 35.3 % (36.0-47.0); LYMPH # 2.5 10^3/uL (1.5-5.0); LYMPH % 19.2 % (24.0-44.0); MEAN CORPUSCULAR HEMOGLOBIN 28.3 pg (27.0-33.0); MEAN CORPUSCULAR HGB CONC 31.2 g/dl (32.0-36.5); MEAN CORPUSCULAR VOLUME 90.7 fl (80.0-96.0); MONO # 1.1 10^3/uL (0.0-0.8); MONO % 8.3 % (0.0-5.0); NEUTROPHILS # 8.7 10^3/uL (1.5-8.5); NEUTROPHILS % 67.1 % (36.0-66.0); PLATELET COUNT, AUTOMATED 444 10^3/uL (150-450); RED BLOOD COUNT 3.89 10^6/uL (4.00-5.40)
[2020-05-02 04:57] LABS: BLOOD UREA NITROGEN 22 MG/DL (7-18); CALCIUM LEVEL 8.8 MG/DL (8.8-10.2); CARBON DIOXIDE LEVEL 39 MEQ/L (21-32); CHLORIDE LEVEL 101 MEQ/L (98-107); CREATININE FOR GFR 0.73 MG/DL (0.55-1.30); GLOMERULAR FILTRATION RATE > 60.0 (>45); GLUCOSE, FASTING 107 MG/DL (70-100); POTASSIUM SERUM 3.8 MEQ/L (3.5-5.1); SODIUM LEVEL 141 MEQ/L (136-145)
[2020-05-02] MEDS: MOXIFLOXACIN 400 MG TAB PO SCH (05:17)
[2020-05-02] MEDS: traMADol 50 MG TAB PO PRN ×3 (05:18→20:52)
[2020-05-02] MEDS: SLF 3 ML SYR IV SCH ×3 (05:18→20:55)
[2020-05-02] MEDS: LEVALBUTEROL 1.25 MG/0.5 ML CONCENTRATE NEB NEB PRN ×2 (07:10→07:11)
[2020-05-02 08:00] VITALS: BP 153/79
[2020-05-02] MEDS: ASPIRIN 81 MG ENTERIC TAB PO SCH (08:30)
[2020-05-02] MEDS: predniSONE 20 MG TAB PO SCH (08:31)
[2020-05-02] MEDS: METOPROLOL TART 12.5 MG PER 1/2 TAB PO SCH ×2 (08:31→20:51)
[2020-05-02] MEDS: VALSARTAN 80 MG TAB (DIOVAN) PO SCH (08:31)
[2020-05-02] MEDS: APIXABAN 5 MG TAB (ELIQUIS) PO SCH ×2 (08:31→20:50)
[2020-05-02] MEDS: LACTOBACILLUS ACIDOPHILUS CAP (BACID) PO SCH (08:31)
[2020-05-02] MEDS: MULTIVITAMINS/MINERALS THERAP 1 TAB PO SCH (08:32)
[2020-05-02] MEDS: PANTOPRAZOLE 40MG TAB (PROTONIX) PO SCH (08:32)
[2020-05-02] MEDS: amLODIPine 10 MG TAB PO SCH (08:32)
[2020-05-02] MEDS: DOCUSATE SODIUM 100MG CAPSULE PO SCH ×2 (08:32→20:51)
[2020-05-02] MEDS: PERCOCET 5MG/325MG TAB PO PRN ×3 (08:32→23:44)
[2020-05-02] MEDS: FUROSEMIDE 40MG/4ML VIAL (J1940) IV SCH ×2 (08:33→16:38)
--- NOTE | 2020-05-02 09:30 | REP ---
INDICATION: empyema COMPARISON: 05/01/2020 TECHNIQUE: PA and lateral. FINDINGS: Left-sided pleuroparenchymal changes and mild right basilar opacity/atelectasis remain unchanged. No new acute process identified. IMPRESSION: No change from prior examination. <Electronically signed by Wu Alvarez > 05/02/20 0947
[2020-05-02] MEDS: NYSTATIN 500,000 U/5 ML SUSP UDC SS SCH ×4 (10:41→20:52)
[2020-05-02 12:00] VITALS: BP 120/75
--- NOTE | 2020-05-02 13:28 | IPNPDOC ---
Text Note Date of Service The patient was seen on 05/02/20. NOTE Subjective: Patient stated that she feels better today, she was able to walk and has less shortness of breath when yesterday. Objective: GENERAL APPEARANCE: Morbidly obese female HEENT: no scleral icterus, no JVD, EOMI CARDIOVASCULAR: irregularly, irregular LUNGS: Diminished lung sounds bilaterally ABDOMEN: soft & not tender w palpitation MUSCULOSKELETAL: no cyanosis, no swelling INTEGUMENT: no generalized pallor NEUROLOGICAL: cranial nerve function from 2-12 intact intact, follows commands, speech not dysarthric Assessment /Plan Mrs. Nicholson is a 65 year old female with HTN, tobacco use, and anxiety who is here with intractable pain. Serial CXR demonstrated enlarging pleural effusion. Discussed with pulmonary and cardiothoracic surgery. Initial CT on admission demonstrated small effusion, but now that it is large. In the setting of pneumonia, pleuritic chest pain, and reproducible pain, it is felt to be an empyema. Plan 1. Pneumonia and empyema Chest tube was placed on (04/26/2020) Blood culture negative Urine Legionella antigen and pneumococcal antigens were also negative CT on 04/27/19 showed Decreased left pleural fluid with residual pleural fluid along the posterior mid to upper pleural cavity possibly partially loculated. ID recommended moxifloxacin Prednisone [address] Armando removed chest tube on 04/29/20 2. Acute kidney injury Resolved 3. Pulmonary hypertension Echo shows 1. Normal global left ventricular systolic function with moderate concentric left ventricular hypertrophy. 2. Aortic valve sclerosis with trivial aortic stenosis, but no aortic regurgitation. 3. Mild mitral regurgitation with trace mitral regurgitation. 4. Mild tricuspid regurgitation with moderately severe pulmonary hypertension, probably overestimated. 5. Possible right pleural effusion noted in limited views. 6. Large calcific plaques noted in the ascending aorta. The patient might benefit from a transesophageal echocardiogram for further evaluation 4. Hypertension Continue home cardioprotective medication After Lasix IV blood pressure better controlled 5. New onset atrial fibrillation -TSH and electrolytes within normal -Echocardiogram as described above -restart Eliquis tonight According to Up to date DOAC should be restarted in 48 days after chest tube removal. I explained to the patient the risks and benefits of anticoagulation after chest tube removal. Patient agreed to wait 48 hours after chest tube removal. Risk Engineer Dr. Reyes recommended to postpone the anticoagulation for 48 hours after chest tube removal as well -Will need to follow up with cardiology outpatient EKG was repeated, showed atrial fibrillation with no acute ischemic changes Metoprolol 12.5 mg BID. Rate controlled for now Smoking abuse Patient agreed to stop smoking CHF exacerbation BNP elevated to 8989 Most likely to volume overload Continue Lasix Fluid restriction Cardiac diet Patient developed good urine output Obesity bmi 39.9 Complicated care VS,Fishbone, I+O VS, Fishbone, I+O Laboratory Tests 05/02/20 03:53 Vital Signs Date Time Temp Pulse Resp B/P (MAP) Pulse Ox O2 Delivery O2 Flow Rate FiO2 05/02/20 12:49 18 Nasal Cannula 2.0 05/02/20 12:00 96.7 77 120/75 (90) 93 I&O- Last 24 Hours up to 6 AM 05/02/20 06:00 Intake Total 900 ml Output Total 2300 ml Balance -1400 ml ESTELA SIMPSON DO May 02, 2020 13:28
[2020-05-02 16:00] VITALS: BP 132/67
[2020-05-02 20:00] VITALS: BP 134/75
[2020-05-03] VITALS (10 sets, daily range): BP systolic 132–154; BP diastolic 70–77; O2SAT 94–95
[2020-05-03 01:09] LABS: BLOOD UREA NITROGEN 27 MG/DL (7-18); CALCIUM LEVEL 9.2 MG/DL (8.8-10.2); CARBON DIOXIDE LEVEL 43 MEQ/L (21-32); CHLORIDE LEVEL 98 MEQ/L (98-107); CREATININE FOR GFR 0.89 MG/DL (0.55-1.30); GLOMERULAR FILTRATION RATE > 60.0 (>45); GLUCOSE, FASTING 124 MG/DL (70-100); MAGNESIUM LEVEL 2.1 MG/DL (1.8-2.4); POTASSIUM SERUM 3.6 MEQ/L (3.5-5.1); SODIUM LEVEL 140 MEQ/L (136-145); TROPONIN I < 0.02 NG/ML (< 0.10)
[2020-05-03] MEDS: IPRATROPIUM 0.5MG/ALBUTEROL 2.5MG INH SOL UD 3ML (DUONEB) NEB SCH ×3 (02:52→14:00)
[2020-05-03 04:33] LABS: HEMATOCRIT 36.1 % (36.0-47.0); HEMOGLOBIN 11.2 g/dl (12.0-15.5); MEAN CORPUSCULAR HEMOGLOBIN 28.2 pg (27.0-33.0); MEAN CORPUSCULAR VOLUME 90.9 fl (80.0-96.0); PLATELET COUNT, AUTOMATED 414 10^3/uL (150-450); RED BLOOD COUNT 3.97 10^6/uL (4.00-5.40); WHITE BLOOD COUNT 12.5 10^3/uL (4.0-10.0)
[2020-05-03 05:07] LABS: BLOOD UREA NITROGEN 24 MG/DL (7-18); CALCIUM LEVEL 8.5 MG/DL (8.8-10.2); CARBON DIOXIDE LEVEL 38 MEQ/L (21-32); CHLORIDE LEVEL 100 MEQ/L (98-107); CREATININE FOR GFR 0.73 MG/DL (0.55-1.30); GLOMERULAR FILTRATION RATE > 60.0 (>45); GLUCOSE, FASTING 106 MG/DL (70-100); POTASSIUM SERUM 3.2 MEQ/L (3.5-5.1); SODIUM LEVEL 143 MEQ/L (136-145); TROPONIN I < 0.02 NG/ML (< 0.10)
[2020-05-03] MEDS: MOXIFLOXACIN 400 MG TAB PO SCH (05:30)
[2020-05-03] MEDS: SLF 3 ML SYR IV SCH ×2 (05:31→10:09)
[2020-05-03] MEDS ORDERED: POTASSIUM CHLORIDE 10% LIQ 20 MEQ/15 ML UDC PO ONE (06:00)
--- NOTE | 2020-05-03 07:12 | IPN ---
PROGRESS NOTE DATE: 05/02/2020 SUBJECTIVE: Ms. Nicholson is sitting up comfortably in a chair and breathing well. Her pain is being well-controlled at the prior chest tube insertion site. The wound is dried up and is not draining for the last 24 hours. OBJECTIVE: VITAL SIGNS: Show a T-max of 99.1 with a heart rate that ranges between 63 and 95 in and out of atrial fibrillation and sinus rhythm. Respiratory rate of 18 to 20 without the use of accessory muscles and she is 93% to 95% saturated on 2 liters nasal cannula with a blood pressure that is ranging between 156/74 to 120/75. INTAKE AND OUTPUT: Over the past 24 hours has been recorded as 1410 in and 2800 out for a negativity of 1390 mL. She weighs 118.2 kg today compared to 115.5 kg yesterday. RESPIRATORY: Her lungs show markedly decreased breath sounds in the left lower hemithorax with E:A egophony. The bronchophony is a little bit less today. Right lung shows normal vesicular sounds without wheezes, rhonchi, or rales. Percussion notes are full to the diaphragm on the right and dull at the left lower base. CARDIAC: Shows the 2/6 murmur at the left and right upper sternal borders. I cannot feel her PMI. S1, S2 are normal. At the time of her examination, she had a regular rate and rhythm. ABDOMEN: Soft and nontender. Bowel sounds are positive. There is no hepatomegaly that I can feel through her obesity. There is no CVA tenderness. EXTREMITIES: Still show 2+ pretibial edema. No calf tenderness. No differential swelling of the upper extremities. SKIN: Warm, dry, and perfused without cyanosis or mottling, including that of the nail beds and knees. NECK: Supple. There is no jugular venous distention. No subcutaneous emphysema. Trachea is midline. MOUTH: Shows her mucous membranes to be pink and moist. Lips and gums without lesions. There is thrush. EYES: Show her pupils equal and reactive. Extraocular movements are intact. Sclerae nonicteric. NEUROLOGIC: Shows II through XII intact. Normal gross motor, gross sensation intact. Gait is not tested. PSYCHIATRIC: Shows her to be awake, alert, and oriented x3 with appropriate mood and affect and conversational. DIAGNOSTIC STUDIES: Her white count today is 13.0 with a hemoglobin and hematocrit of 11.0 and 35.3 respectively, unchanged from yesterday. Platelet count is 444 and stable and differential shows 67% neutrophils, 19% lymphocytes, 8% monocytes. There are no immature forms and no toxic granulations. Her electrolytes are normal except for an elevated total CO2 of 39. BUN and creatinine are 22 and 0.73 respectively, essentially unchanged from yesterday, with a glucose of 107, calcium 8.8, and a magnesium of 2.0. She is receiving Lasix 40 mg IV. Potassium is starting to trend a little bit lower and I do not see potassium replacement. Her prednisone has been discontinued. I am not sure the reason why it was even started in the first place. It may have contributed to a slight rise in her white count. There is no new microbiology on her. Sputum culture was not obtained prior to starting antibiotics and therefore, we probably will not have any reliable microbiology. She was admitted 04/23/2020, and the first sputum culture was obtained 04/26/2020. Pleural fluid is negative for growth. There were no organisms seen on the gram stains. IMAGING: Her chest x-ray still shows the dense opacity in the left lower hemithorax. It does not look significantly changed for the last few days. Her CT scan done 04/27/2020, showed resolution of the pleural fluid with the chest tube in place at the time. IMPRESSION: 1. Left lower lobe pneumonia. 2. Parapneumonic effusion/empyema left side. 3. Intermittent atrial fibrillation. 4. Anxiety. 5. Hypertension. 6. Minimal aortic sclerosis. 7. Pulmonary hypertension. PLAN AND DISCUSSION: She is now on Avelox p.o. as her antibiotic. I am hoping that the white count was secondary to the steroids. She is feeling well. She will need to be followed by cardiology as an outpatient. Her anticoagulation has been on and off for the last day for reasons unknown to me. She definitely needs to be anticoagulated prior to leaving the hospital. Upon discharge, I will see her back in the office in 7-10 days with a chest x-ray for follow-up. It should be noted that we do not have solid microbiology information to direct her antibiotics.
--- NOTE | 2020-05-03 07:53 | IPNPDOC ---
Date Seen The patient was seen on 05/03/20. Progress Note I was called to assess patient at bedside at approx 0200 am for lightheadedness and concern for 2nd degree type 2 block noted on telemetry. Tele strip reviewed, suspicious for 2nd degree type 2 block on tele strip with HR down to 45, now rebounded to 60, but unfortunately EKG did not capture rhythm. I spoke to Dr. Eric lujanading concerns for 2nd deg mobitz II block and possible need for cardi ac pacing, he assured me that given normal QRS duration of 0.08, these rhythms are not true 2nd deg mobitz type 2 blocks, and are likely a consequence of sleep apnea. Patient had trop < 0.02 x 2. Left patient with pacing leads in placed in the event of pacing in emergent situation. VS, I&O, [facility] Vital Signs/I&O Vital Signs Date Time Temp Pulse Resp B/P (MAP) Pulse Ox O2 Delivery O2 Flow Rate FiO2 05/03/20 04:00 2.0 05/03/20 04:00 138/74 (95) 05/03/20 04:00 97.3 75 18 97 Nasal Cannula I&O- Last 24 Hours up to 6 AM 05/03/20 06:00 Intake Total 600 ml Output Total 3150 ml Balance -2550 ml Laboratory Data 24H LABS Laboratory Tests 2 05/03/20 00:33: Anion Gap , Glomerular Filtration Rate > 60.0, Calcium Level 9.2, Magnesium Level 2.1, Troponin I < 0.02 05/03/20 04:19: Anion Gap 5L, Glomerular Filtration Rate > 60.0, Calcium Level 8.5L, Magnesium Level 2.0, Troponin I < 0.02, Nucleated Red Blood Cells % (auto) 0.0 CBC/BMP Laboratory Tests 05/03/20 00:33 05/03/20 04:19 Microbiology Microbiology 04/26/20 Gram Stain - Final, Complete 04/26/20 Sputum Culture - Final, Complete Yeast Like Organism 04/26/20 Acid Fast Stain, Received Pending 04/26/20 Mycobacterial Culture, Received Pending 04/26/20 Fungal Smear, Received Pending 04/26/20 Fungal Culture, Received Pending 04/26/20 Gram Stain - Final, Complete 04/26/20 Body Fluid Culture - Final, Complete 04/26/20 Anaerobic Culture - Final, Complete 04/23/20 Blood Culture - Final, Complete NO GROWTH AFTER 5 DAYS 04/23/20 Blood Culture - Final, Complete NO GROWTH AFTER 5 DAYS MITCHELL DEL TORO MD May 03, 2020 07:53
--- NOTE | 2020-05-03 08:03 | ECGEPIP ---
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 Change in lead position as mentioned and rhythm has converted from atrial f fibrillation 04/30/20. Electronically Signed on 05-03-2020 8:03:10 EST by Mohsen Reyes
--- NOTE | 2020-05-03 08:04 | ECGEPIP ---
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 Electronically Signed on 05-03-2020 8:04:15 EST by Mohsen Reyes
[2020-05-03] MEDS ORDERED: predniSONE 20 MG TAB PO SCH (09:00)
[2020-05-03] MEDS ORDERED: predniSONE 10 MG TAB PO SCH (09:00)
[2020-05-03] MEDS ORDERED: METOPROLOL TART 12.5 MG PER 1/2 TAB PO SCH (09:00)
--- NOTE | 2020-05-03 09:20 | REP ---
INDICATION: empyema COMPARISON: 05/02/2020 TECHNIQUE: PA and lateral. FINDINGS: Pleuroparenchymal changes involving the left hemithorax remain stable. No new acute process appreciated.. IMPRESSION: Stable pleuroparenchymal changes to the left hemithorax. <Electronically signed by Wu Alvarez > 05/03/20 0916
[2020-05-03] MEDS: NYSTATIN 500,000 U/5 ML SUSP UDC SS SCH ×2 (10:04→14:22)
[2020-05-03] MEDS: FUROSEMIDE 40MG/4ML VIAL (J1940) IV SCH (10:04)
[2020-05-03] MEDS: APIXABAN 5 MG TAB (ELIQUIS) PO SCH (10:05)
[2020-05-03] MEDS: DOCUSATE SODIUM 100MG CAPSULE PO SCH (10:05)
[2020-05-03] MEDS: LACTOBACILLUS ACIDOPHILUS CAP (BACID) PO SCH (10:05)
[2020-05-03] MEDS: MULTIVITAMINS/MINERALS THERAP 1 TAB PO SCH (10:05)
[2020-05-03] MEDS: amLODIPine 10 MG TAB PO SCH (10:05)
[2020-05-03] MEDS: traMADol 50 MG TAB PO PRN (10:06)
[2020-05-03] MEDS: ASPIRIN 81 MG ENTERIC TAB PO SCH (10:07)
[2020-05-03] MEDS: VALSARTAN 80 MG TAB (DIOVAN) PO SCH (10:07)
[2020-05-03] MEDS: PANTOPRAZOLE 40MG TAB (PROTONIX) PO SCH (10:07)
[2020-05-03] MEDS ORDERED: ELIQ5TAB PO (11:48)
[2020-05-03] MEDS ORDERED: MOXI400T11 PO (11:48)
[2020-05-03] MEDS ORDERED: DOK1CAP7 PO (11:48)
[2020-05-03] MEDS ORDERED: TRAM50TA2 PO (11:48)
[2020-05-03] MEDS ORDERED: METO1TAB87 PO (11:48)
[2020-05-03] MEDS ORDERED: LASI40TA9 PO (11:48)
[2020-05-03] MEDS ORDERED: PANT40TA29 PO (11:48)
[2020-05-03] MEDS ORDERED: AMLO10TA PO (11:51)
--- NOTE | 2020-05-03 13:03 | IPN ---
PROGRESS NOTE DATE: 05/03/2020 SUBJECTIVE: Mr. Nicholson had an episode of bradycardia with a heart rate down [address] Reyes was consulted and felt that it was secondary perhaps to obstructive sleep apnea. Her saturations did not drop during that episode. OBJECTIVE: VITAL SIGNS: Show a T-max of 98.5 with a heart rate that ranges between 65 and 77 in a sinus rhythm. Respiratory rate of 18-20 without the use of accessory muscles who is 97% to 99% saturated on 2 liters nasal cannula and whose blood pressure is ranging between 135/70 to 154/71. INTAKE AND OUTPUT: Over the past 24 hours has been recorded as 600 in and 2900 out for a negativity of 2300 mL. She weighs 118.3 kg today compared to 118.2 kg yesterday. RESPIRATORY: Her lungs still shows decreased breath sounds in the right lower hemithorax, but I do not hear the severe bronchophony that I have heard in the past. Percussion note is still dull at the left hemithorax. Right lung shows normal vesicular sounds. CARDIAC: Shows the 2/6 murmur at the left and right upper sternal borders. I cannot feel her PMI. S1 and S2 are normal. At the time of my examination, she had a regular rate and rhythm. ABDOMEN: Soft and nontender. Bowel sounds are positive. There is no hepatomegaly that I can feel through her obesity. There was no CVA tenderness. EXTREMITIES: Still show 1 to 2+ pretibial edema, but it is better than yesterday. No calf tenderness. No differential swelling of the upper extremities. SKIN: Warm, dry, and perfused without cyanosis or mottling, including that of the nail beds and knees. NECK: Supple. There is no jugular venous distention. No subcutaneous emphysema. Trachea is midline. MOUTH: Shows her mucous membranes to be pink and moist. Lips and gums without lesions. There is no thrush today. She was placed on Nystatin yesterday. EYES: Show her pupils equal and reactive. Extraocular movements are intact. Sclerae nonicteric. NEUROLOGIC: Shows II through XII intact. Normal gross motor, gross sensation intact. Gait is not tested. PSYCHIATRIC: Shows her to be awake, alert, and oriented x3 with appropriate mood and affect and conversational. DIAGNOSTIC STUDIES: Her white count today is 12.5, essentially unchanged from yesterday of 13.0. Hemoglobin and hematocrit are 11.2 and 36.1 again essentially unchanged. Platelet count is 414,000 and stable. There is no differential on her. Her potassium is 3.2 with a normal sodium of 143. BUN and creatinine are 24 and 0.73 respectively; again, unchanged from yesterday with an improving total CO2 of 38 down from 43 early this morning. She remains on Avelox p.o. 400 mg q. day as her antibiotic. Her chest x-ray today still shows the diffuse opacity in the left lower hemithorax. IMPRESSION: 1. Left lower lobe pneumonia. 2. Parapneumonic effusion or empyema left side. 3. Intermittent atrial fibrillation and now bradycardia. 4. Anxiety. 5. Hypertension. 6. Minimal aortic sclerosis. 7. Pulmonary hypertension. PLAN AND DISCUSSION: I will leave her cardiac workup to of course cardiology. Her total CO2 is probably a combination of both her chronic CO2 retention and the diuretic therapy.
--- NOTE | 2020-05-03 19:44 | DS.PDOC ---
Discharge Summary General Date of Admission Apr 23, 2020 at 09:26 Date of Discharge 05/03/20 Discharge Summary PROCEDURES PERFORMED DURING STAY: [None]. ADMITTING DIAGNOSES: Pneumonia and empyema Acute kidney injury Pulmonary hypertension Hypertension New onset atrial fibrillation Smoking abuse CHF exacerbation Obesity DISCHARGE DIAGNOSES: Pneumonia and empyema Acute kidney injury Pulmonary hypertension Hypertension New onset atrial fibrillation Smoking abuse CHF exacerbation Obesity COMPLICATIONS/CHIEF COMPLAINT: Intractable Pain Shortness Of Breath. HISTORY OF PRESENT ILLNESS: Mrs. Nicholson is a 65 year old female with HTN, tobacco use, and anxiety who is here with intractable pain. Serial CXR demonstrated enlarging pleural effusion. Discussed with pulmonary and cardiothoracic surgery. Initial CT on admission demonstrated small effusion, but now that it is large. In the setting of pneumonia, pleuritic chest pain, and reproducible pain, it is felt to be an empyema. HOSPITAL COURSE: During hospital stay following issue addressed 1. Pneumonia and empyema Chest tube was placed on (04/26/2020) Blood culture negative Patient received treatment with vancomycin and cefepime Urine Legionella antigen and pneumococcal antigens were also negative ID recommended moxifloxacin Patient received steroids Dr. Armando removed chest tube on 04/29/20. Today patient has oxygen saturation of 93% on the room air. 2. Acute kidney injury Resolved 3. Pulmonary hypertension Echo shows 1. Normal global left ventricular systolic function with moderate concentric left ventricular hypertrophy. 2. Aortic valve sclerosis with trivial aortic stenosis, but no aortic regurgitation. 3. Mild mitral regurgitation with trace mitral regurgitation. 4. Mild tricuspid regurgitation with moderately severe pulmonary hypertension, probably overestimated. 5. Possible right pleural effusion noted in limited views. 6. Large calcific plaques noted in the ascending aorta. The patient might benefit from a transesophageal echocardiogram for further evaluation Patient will need sleep study in the outpatient settings 4. Hypertension Continue home cardioprotective medication After Lasix IV blood pressure better controlled 5. New onset atrial fibrillation -TSH and electrolytes within normal -Echocardiogram as described above -restart Eliquis after 48 hours of chest tube removal According to Up to date DOAC should be restarted in 48 days after chest tube removal. -Will need to follow up with cardiology outpatient EKG was repeated, showed atrial fibrillation with no acute ischemic changes Metoprolol 12.5 mg BID. Rate controlled Patient will need sleep study During hospital stay patient also developed a few episodes of bradycardia. Dr Reyes reviewed EKG, he thinks most likely patient developed bradycardia secondary to sleep apnea. he recommended to discharge patient on beta blockers and follow-up with him in to 3 days Smoking abuse Patient agreed to stop smoking CHF exacerbation BNP elevated [place] 8989 Most likely 2/2volume overload Patient received Lasix Fluid restriction Cardiac diet Patient developed good urine output after initiation of diuresis. Obesity bmi 39.9 Complicated care DISCHARGE MEDICATIONS: Please see below. ALLERGIES: Please see below. PHYSICAL EXAMINATION ON DISCHARGE: VITAL SIGNS: Please see below. GENERAL APPEARANCE: Morbidly obese female HEENT: no scleral icterus, no JVD, EOMI CARDIOVASCULAR: irregularly, irregular LUNGS: Diminished lung sounds bilaterally ABDOMEN: soft & not tender w palpitation MUSCULOSKELETAL: no cyanosis, no swelling INTEGUMENT: no generalized pallor NEUROLOGICAL: cranial nerve function from 2-12 intact intact, follows commands, speech not dysarthric LABORATORY DATA: Please see below. IMAGING: TECHNIQUE: PA and lateral. FINDINGS: Pleuroparenchymal changes involving the left hemithorax remain stable. No new acute process appreciated.. IMPRESSION: Stable pleuroparenchymal changes to the left hemithorax. PROGNOSIS: Fair ACTIVITY: [As tolerated]. DIET: Cardiac DISPOSITION: 06 Home Health Service. DISCHARGE INSTRUCTIONS: Stop smoking ITEMS TO FOLLOWUP ON ON OUTPATIENT: Follow-up with office machine inspector, thoracic surgeon, PCP Patient will need sleep study DISCHARGE CONDITION: [Stable]. TIME SPENT ON DISCHARGE: Greater than 40 minutes. Vital Signs/I&Os Vital Signs Date Time Temp Pulse Resp B/P (MAP) Pulse Ox O2 Delivery O2 Flow Rate FiO2 05/03/20 12:00 96.3 78 18 132/77 (95) 90 Room Air 05/03/20 08:00 2.0 I&O- Last 24 Hours up to 6 AM 05/03/20 06:00 Intake Total 600 ml Output Total 3150 ml Balance -2550 ml Laboratory Data Labs 24H Laboratory Tests 2 05/03/20 00:33: Anion Gap , Glomerular Filtration Rate > 60.0, Calcium Level 9.2, Magnesium Level 2.1, Troponin I < 0.02 05/03/20 04:19: Anion Gap 5L, Glomerular Filtration Rate > 60.0, Calcium Level 8.5L, Magnesium Level 2.0, Troponin I < 0.02, Nucleated Red Blood Cells % (auto) 0.0 CBC/BMP Laboratory Tests 05/03/20 00:33 05/03/20 04:19 Microbiology Microbiology 04/26/20 Gram Stain - Final, Complete 04/26/20 Sputum Culture - Final, Complete Yeast Like Organism 04/26/20 Acid Fast Stain, Received Pending 04/26/20 Mycobacterial Culture, Received Pending 04/26/20 Fungal Smear, Received Pending 04/26/20 Fungal Culture, Received Pending 04/26/20 Gram Stain - Final, Complete 04/26/20 Body Fluid Culture - Final, Complete 04/26/20 Anaerobic Culture - Final, Complete 04/23/20 Blood Culture - Final, Complete NO GROWTH AFTER 5 DAYS 04/23/20 Blood Culture - Final, Complete NO GROWTH AFTER 5 DAYS Discharge Medications Scheduled Amlodipine Besylate (Norvasc) 10 Mg Tablet, 1 TAB PO DAILY Apixaban (Eliquis) 5 Mg Tablet, 5 MG PO BID Felodipine (Felodipine ER) 10 Mg Tab.er.24h, 10 MG PO DAILY, (Reported) Furosemide (Lasix) 40 Mg Tablet, 1 TAB PO DAILY Metoprolol Tartrate (Metoprolol Tartrate) 25 Mg Tablet, 12.5 MG PO BID Moxifloxacin HCl (Moxifloxacin HCl) 400 Mg Tablet, 400 MG PO DAILY@06 Multivitamins (Thera M Plus Tablet) 1 Each Tablet, 1 TAB PO DAILY, (Reported) [place]-3 Acid Ethyl Esters ([place]-3 Acid Ethyl Esters) 1 Gm Capsule, 2 GM PO DAILY, (Reported) Pantoprazole Sodium (Pantoprazole Sodium) 40 Mg Tablet.dr, 40 MG PO DAILY Terazosin HCl (Terazosin HCl) 5 Mg Capsule, 5 MG PO QHS, (Reported) Valsartan/Hydrochlorothiazide (Valsartan-Hctz 320-25 mg Tab) 1 Each Tablet, 1 TAB PO DAILY, (Reported) Scheduled PRN Docusate Sodium (Dok) 100 Mg Capsule, 100 MG PO BID PRN for constipation Tramadol HCl (Tramadol HCl) 50 Mg Tablet, 50 MG PO Q6HP PRN for MODERATE PAIN (PS 5-7) Allergies Coded Allergies: Penicillins (Verified Allergy, Intermediate, RASH, HIVES, 04/12/20) Sulfa (Sulfonamide Antibiotics) (Verified Allergy, Intermediate, RASH, 04/12/20) ESTELA SIMPSON DO May 03, 2020 19:44
== END 2020-05-03 16:19 | disposition home health service (06) | DRG 177 ==
LOC: M ED 04:47 → M ED INP 09:26 → ENRESERV 09:45 → M MSPAV 10:11 → M PCU 04-25 17:34
PROVIDERS: ADMIT Internal Medicine; ATTEND Internal Medicine
PROC: 0W9930Z Drainage of Right Pleural Cavity with Drainage Device, Percutaneous Approach (ICD-10-PCS; principal; 2020-04-26)
DX: J86.9 Pyothorax without fistula (principal); J18.9 Pneumonia, unspecified organism; N17.9 Acute kidney failure, unspecified; I27.20 Pulmonary hypertension, unspecified; I11.0 Hypertensive heart disease with heart failure; E66.9 Obesity, unspecified; I48.0 Paroxysmal atrial fibrillation; F17.200 Nicotine dependence, unspecified, uncomplicated; F41.9 Anxiety disorder, unspecified; I08.3 Combined rheumatic disorders of mitral, aortic and tricuspid valves; Z79.899 Other long term (current) drug therapy; Z88.0 Allergy status to penicillin; Z88.2 Allergy status to sulfonamides; I50.9 Heart failure, unspecified; J44.9 Chronic obstructive pulmonary disease, unspecified

== ENCOUNTER → 2020-05-10 | Outpatient (CLI) | payer OTHER ==
[~2020-05-10] MED LIST changes: +AMLO10TA PO; +DOCU100C16 PO; +DOK1CAP7 PO; +ELIQ5TAB PO; +IBUP200T45 PO; +LASI40TA9 PO; +METO1TAB87 PO; +MOXI400T11 PO; -OMEG1CAP4 PO; +OMEG1CAP85 PO; +PANT-23 PO; +PANT40TA29 PO; +TRAM50TA2 PO
--- NOTE | 2020-05-10 09:08 | REPPI ---
INDICATION: PYOTHORAX WITHOUT FISTULA COMPARISON: 1121 TECHNIQUE: PA and lateral. FINDINGS: Pleuroparenchymal changes primarily noted involving the left lower lung zone appear mildly improved as compared to prior examination. Small amount of residual left pleural fluid cannot be excluded. The bilateral aerated lung gutierrez are otherwise essentially clear and without new consolidation. No pneumothorax. Visualized mediastinum and cardiac silhouette normal. Skeletal structures intact. IMPRESSION: Left-sided pleuroparenchymal changes appear mildly improved. Small amount of residual left pleural fluid cannot be excluded. <Electronically signed by Wu Alvarez > 05/10/20 0905
== END ==
LOC: M PLAIMG 08:34
PROVIDERS: ATTEND Thoracic Surgery (Cardiothoracic Vascular Surgery)
DX: J86.9 Pyothorax without fistula (principal)

== ENCOUNTER 2020-05-19 10:34 | Inpatient (IN) | payer OTHER ==
[~2020-05-19] VITALS: Ht 170.2 cm; Wt 112.9 kg
[~2020-05-19 10:34] MED LIST changes: -DOCU100C16 PO; -IBUP200T45 PO; +OMEG1CAP4 PO; -OMEG1CAP85 PO; -PANT-23 PO
--- OUTSIDE RECORDS SUMMARY | 2020-05-19 10:40 | CCD ---
Author Author [facility] Organization [facility] Address Unknown Phone Unavailable Care Team Providers Care Soyfreeze Operator Name Role Phone Vijaya Good Unavailable PROBLEMS Type Condition ICD9-CM Code [id number] Code Onset Dates Condition S tatus SNOMED Code Notes Problem Mixed hyperlipidemia E78.2 Active 559415151 Problem Pre-diabetes R73.03 Active 728072186 Problem Cigarette nicotine dependence without complication F17.210 Active 96796406 Problem Atherosclerosis of aorta I70.0 Active 2217963 3 Problem Essential hypertension I10 Active 78137031 Problem Paroxysmal atrial fibrillation I48.0 Active 2 17624893 Problem Vitamin D deficiency E55.9 Active 55443759 Problem Morbid (severe) obesity due to excess calories E66 .01 Active 796847644 Problem Anxiety about health F41.8 Active 054764594 Problem Pulmonary hypertension I27.20 Active 02281402 ALLERGIES Allergen (clinical drug ingredient) Drug/Non Drug Allergy do cumented on EMR Reaction Allergy Type Onset Date Status Sulfacet Rash Drug Allergy Active ENCOUNTERS from 1957 to 2020-05-17 Encounter Location Date Provider Diagnosis [address] [address] Apr, Vijaya Good IMMUNIZATIONS Vaccine Route Administration Date Status Influenza (6mo & up) Fluzone Unknown Feb 21, 2017 Adm inistered SOCIAL HISTORY Tobacco Use: Social History Observation Description Date Details (start date - stop date) Current Smoker Sex Assigned At : Social History Observation Description Sex Assigned At Unknown Education: Question Answer Notes Level of Education: Graduate Audit Question Answer Notes Total Score: 1 Interpretation: Alcohol Education Language: Question Answer Notes Languages spoken: Czech Buddhist: Question Answer Notes Buddhist 02 Atheist Domestic Violence: Question Answer Notes Status: Sexual Hx: Question Answer Notes Had sex in the last 12 months (vaginal, oral, or anal)? No Have you ever had an STD? No Drug and Alcohol Question Answer Notes Total Score: 0 Interpretation: No problems reported Alcohol Screening: Question Answer Notes Did you have a drink containing alcohol in the past year? Ye s Points 1 Interpretation Negative How often did you have six or more drinks on one occas ion in the past year? Never (0 points) How many drinks did you have on a typica l day when you were drinking in the past year? 1 or 2 (0 points) How often did you have a drink containing alcohol in t he past year? Monthly or less (1 point) BMI Care Goal Follow-Up Question Answer Notes Above Normal BMI Follow-Up Giving encouragement to exercise Tobacco Use: Question Answer Notes Are you a: current smoker Smoking Cessation Information Given 05/14/2020 Patient counseled on the dangers of tobacco use and urged to quit: 05/14/2020 How many cigarettes a day do you smoke? 5 or less Are you interested in quitting? Not ready to quit Counseled the patient on smoking effects, education provided 05/14/2020 REASON FOR REFERRAL No Information VITAL SIGNS No information MEDICATIONS Medication SIG (Take, Route, Frequency, Duration) Notes Start Da te End Date Status Pantoprazole Sodium 40 MG 1 tablet Orally Once a day Active Multi For Her - 1 tab Orally Daily A ctive Lovaza 1 GM 2 capsules Orally Daily for 90 Active Apixaban 5 MG 1 tab Orally bid Activ e Ondansetron HCl 4 MG 1 tablet as needed Orally every 6 hours August, Active Metoprolol Tartrate 25 mg 1/2 tablet with food Orally Twice a day Active PROCEDURES No Information RESULTS No Results REASON FOR VISIT hypertension MEDICAL (GENERAL) HISTORY Type Description Date Medical History Hypertension Medical History Prediabetes - A1c of 6.2% Medical History ASCVD risk 8.8% 01/2020; declines statin Medical History Tobacco use - 1 ppd x 41 years, declines LDLCT Medical History Pulmonary HTN Medical History Atrial fibrillation Medical History History of pneumonia with empyema in 04/24 021 Surgical History Appendectomy 1975 Surgical History Laminectomy - L4-S1 2002 Surgical History Colonoscopy - [facility] 11/07 Surgical History chest tube for empyema - kevin Alejandre moved within 3 days 04/2020 Hospitalization History Childbirth 1983 Hospitalization History Childbirth 1985 Hospitalization History Childbirth 1987 Hospitalization History pneumonia 04/2020 Goals Section No Information Health Concerns No Information MEDICAL EQUIPMENT No Information MENTAL STATUS No Information FUNCTIONAL STATUS No Information ASSESSMENTS No Information PLAN OF TREATMENT Medication Medication Name Sig Start Date Stop Date Metoprolol Tartrate 25 mg 1/2 tablet with food Orally Twice a da y Apixaban 5 MG 1 tab Orally bid Next Appt Details Provider Name:Vijaya Good, 2020-06-25 07:30:00 AM, [address] [place] [address], [phone], Insurance Providers Payer Name Payer Address Payer Phone Insured Name Patient Relati onship to Insured Coverage Start Date Coverage End Date [facility] [id number] [facility] [phone] self
--- OUTSIDE RECORDS SUMMARY | 2020-05-19 10:40 | CCD | Continuity of Care Document ---
Author Author Ana Laura PEARL M.D. Organization Unknown Address [address] [place] [address] Phone [phone] Care Team Providers Care Finance Effectiveness Manager Name Role Phone AUTM Unavailable Vijaya Good M.D. AUTM [phone] Problems Active Problems Provider Date Essential hypertension Cali Pearl M.D. Onset: 1 Social History Type Date Description Comments Sex Unknown Tobacco Use Reviewed: 05/09/20 Patient is a current smoker, smokes every day 1 ppd x 20 years Smoking Status Reviewed: 05/09/20 Patient is a current smoker, smokes every day 1 ppd x 20 years Allergies, Adverse Reactions, Alerts Active Allergies Reaction Severity Comments Date Sulfa Contact dermatitis 1 Penicillin V Contact dermatitis 1 Medications Active Medications SIG Qnty Indications Ordering Provide r Date Multivitamin Tablets 1 tab by mouth every day Unknown [place] 3 1 tab by mouth every day Unknown Terazosin HCL 5mg Capsules 1 tab by mouth at bedtime Unknown Valsartan-Hydrochlorothiazide 320-25mg Tablets 1 tab by mouth every day Unknown Amlodipine Besylate 10mg Tablets 1 tab by mouth every day Unknown Eliquis 5mg Tablets 1 tab by mouth twice a day Dr Eric roe Unknown Lasix 40mg Tablets 1 tab by mouth every day Unknown Metoprolol Tartrate 25mg Tablets 1 tab by mouth twice a day Unknown Docusate Sodium 100mg Capsules 1 tab by mouth twice a day Unknown Pantoprazole Sodium 40mg Tablets D R 1 tab by mouth every day Unknown Tramadol HCL 50mg Tablets 1 tab by mouth every 6 hours as needed Unknown Immunizations Description No Information Available Vital Signs Date Vital Result Comment 05/10/2020 9:11am BP Systolic 146 mmHg BP Diastolic 90 mmHg Heart Rate 84 /min O2 % BldC Oximetry 96 % Height 67 inches 5'7" Weight 236.00 lb BMI (Body Mass Index) 37.0 kg/m2 [place] Body Weight 135 lb Weight 107.050 kg BSA (Body Surface Area) 2.17 m2 Results Description No Information Available Procedures Description No Information Available Medical Devices Description No Information Available Encounters Description No Information Available Assessments Description No Information Available Plan of Treatment Future Appointment(s):* 05/31/2020 8:45 am - Cali Pearl M.D. at [facility] Pulmonary/Thoracic Functional Status Description No Information Available Mental Status Description No Information Available Referrals Description No Information Available
--- OUTSIDE RECORDS SUMMARY | 2020-05-19 10:40 | CCD ---
Author Author [facility] Organization [facility] Address Unknown Phone Unavailable Care Team Providers Care Shredder Tender Name Role Phone Vijaya Good Unavailable PROBLEMS Type Condition ICD9-CM Code [id number] Code Onset Dates Condition S tatus SNOMED Code Notes Problem Essential hypertension I10 Active 15932420 Problem Morbid (severe) obesity due to excess calories E66 .01 Active 949780739 Problem Anxiety about health F41.8 Active 498216045 Problem Mixed hyperlipidemia E78.2 Active 205780627 Problem Pre-diabetes R73.03 Active 178746120 Problem Cigarette nicotine dependence without complication F17.210 Active 12313276 Problem Vitamin D deficiency E55.9 Active 61997123 ALLERGIES Allergen (clinical drug ingredient) Drug/Non Drug Allergy do cumented on EMR Reaction Allergy Type Onset Date Status Sulfacet Rash Drug Allergy Active ENCOUNTERS from 1957 to 2020-05-13 Encounter Location Date Provider Diagnosis [address] [address] Apr, Vijaya Good IMMUNIZATIONS Vaccine Route Administration [...] Education Language: Question Answer Notes Languages spoken: Tajik Judaism: Question Answer Notes Judaism 02 Atheist Domestic Violence: Question Answer Notes [...] a: current smoker Smoking Cessation Information Given 01/23/2020 Patient counseled on the dangers of tobacco use and urged to quit: 01/23/2020 How many cigarettes a day do you smoke? 11-20 Are you interested in quitting? Not ready to quit Counseled the patient on smoking effects, education provided 01/23/2020 REASON FOR REFERRAL No Information VITAL SIGNS No information MEDICATIONS Medication SIG (Take, Route, Frequency, Duration) Notes Start Da te End Date Status Vitamin D 2000 UNIT 1 tablet Orally Once a day Not-Taking Benzonatate 100 MG 1 capsule as needed Orally T hree times a day as needed for 10 day(s) May, Not-Taking Moxifloxacin HCl 400 MG 1 tablet Orally Once a day x 4 days Active Felodipine ER 10 MG 1 tablet Orally Once a day for 90 Active Lovaza 1 GM 2 capsules Orally Daily for 90 Active Furosemide 40 MG 1 tablet Orally Once a day Active AmLODIPine Besylate 10 MG 1 tablet Orally Once a day Active Valsartan-Hydrochlorothiazide 320-25 MG 1 tablet Orally Once a day fo r 90 Active Metoprolol Tartrate 25 mg 1/2 tablet with food Orally Twice a day Active Docusate Sodium 100 MG 1 capsule as needed Orally twice daily x 7 day s Active Terazosin HCl 5 MG 1 capsule Orally Once a day Active Multi For Her - 1 tab Orally Daily A ctive Tramadol HCl 50 MG 1 tablet as needed Orally Ev rito 6 hours for moderate pain. MDD 4 tablets x 3 days Active Apixaban 5 MG 1 tab Orally bid Activ e Ondansetron HCl 4 MG 1 tablet as needed Orally every 6 hours August, Active Pantoprazole Sodium 40 MG 1 tablet Orally Once a day Active PROCEDURES No Information RESULTS No Results REASON FOR VISIT pt sessions MEDICAL (GENERAL) HISTORY Type Description Date Medical History Hypertension Medical History Prediabetes - A1c of 6.2% Medical History ASCVD risk 8.8% 01/2020; declines statin Medical History Tobacco use - 1 ppd x 41 years, declines LDLCT Surgical History Appendectomy 1975 Surgical History Laminectomy - L4-S1 2002 Surgical History Colonoscopy - [facility] 2012, 11/07 Hospitalization History Childbirth 1983 Hospitalization History Childbirth 1985 Hospitalization History Childbirth 1988 Goals Section No Information Health Concerns No Information MEDICAL EQUIPMENT No Information MENTAL STATUS No Information FUNCTIONAL STATUS No Information ASSESSMENTS No Information PLAN OF TREATMENT Next Appt Details Provider Name:Vijaya Ruvalcaba Latisha, 2020-05-14 11:15:00 AM, [address] [place] [address], [phone], Provider Name:Vijaya Ruvalcaba Jacobyesau, 2020-06-25 07:30:00 AM, [address] [place] [address], [phone], Insurance Providers Payer Name Payer Address Payer Phone Insured Name Patient Relati onship to Insured Coverage Start Date Coverage End Date [facility] [employer] [phone] [facility] [phone] [place] self
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
--- OUTSIDE RECORDS SUMMARY | 2020-05-19 10:41 | CCD ---
Author Author [facility] Organization [facility] [place] Address Unknown Phone Unavailable Support Name Relationship Address Phone [facility] Next Of Kin [address] [place] [address] MARYAMMADISON GONZALEZCH Next Of Kin [address] [place] [address] [facility]* Next Of Kin [address] [place] [address] [place], [place] Next Of Kin [address] [place] [address] [place] Next Of Kin [address] [place] [address] maryamwicho gonzalez ECON Unknown Unavailable Re-disclosure Warning The records that you are about to access may contain information from federally-assisted alcohol or drug abuse programs. If such information is present, then the following federally mandated warning applies: This information has been disclosed to you from records protected by federal confidentiality rules (42 CFR part 2). The federal rules prohibit you from making any further disclosure of this information unless further disclosure is expressly permitted by the written consent of the person to whom it pertains or as otherwise permitted by 42 CFR part 2. A general authorization for the release of medical or other information is NOT sufficient for this purpose. The Federal rules restrict any use of the information to criminally investigate or prosecute any alcohol or drug abuse patient.The records that you are about to access may contain highly sensitive health information, the redisclosure of which is protected by Article 27-F of the [facility] Public Health law. If you continue you may have access to information: Regarding HIV / AIDS; Provided by facilities licensed or operated by the [facility] Office of Mental Health; or Provided by the [facility] Office for People With Developmental Disabilities. If such information is present, then the following [facility] mandated warning applies: This information has been disclosed to you from confidential records which are protected by state law. State law prohibits you from making any further disclosure of this information without the specific written consent of the person to whom it pertains, or as otherwise permitted by law. Any unauthorized further disclosure in violation of state law may result in a fine or senior living sentence or both. A general authorization for the release of medical or other information is NOT sufficient authorization for further disc losure. Allergies and Adverse Reactions Type Description Substance Reaction Status Data Source(s ) Drug allergy Sulfacet Drug allergy Rash Active eCW1 ([facility]) Encounters Encounter Providers Location Date Indications Data Source(s ) Unknown [address] [facility] [address] [address] 05/17/2020 12:00:00 AM EST eCW1 ([facility]) Unknown [address] [facility] [address] 05/17/2020 12:00:00 AM EST eCW1 ([facility]) Unknown [address] [facility] [address] 05/12/2020 12:00:00 AM EST eCW1 ([facility]) Unknown [address] [facility] [facility] [address] [address] 05/12/2020 12:00:00 AM EST eCW1 ([facility]) Unknown [address] [facility] [facility] [address] [address] 05/04/2020 12:00:00 AM EST eCW1 ([facility]) Unknown [address] [facility] [facility] [address] [address] 05/04/2020 12:00:00 AM EST eCW1 ([facility]) TeleMedicine Phone E/M by Phys 11-20 Min [address] [place] [address] 04/12/2020 12:00:00 AM EST eCW1 ([facility]) Unknown [address] [facility] [place] [address] 04/12/2020 12:00:00 AM EST eCW1 ([facility]) [place] [address] [facility] [address] 04/09/2020 12:00:00 AM EST [facility]1 [facility] [place] [address] [facility] [address] 04/08/2020 12:00:00 AM EST eCW1 ([facility]) [place] [address] [facility] [address] 02/26/2020 12:00:00 AM EST eCW1 ([facility]) Outpatient 02/16/2020 12:00:00 AM EDT [facility] Out[facility] [address] [facility] [address] 01/23/2020 12:00:00 AM EDT eCW1 ([facility]) [facility] [address] [facility] [address] 11/13/2019 12:00:00 AM EDT eCW1 ([facility]) [facility] [address] [facility] [place] [address] 09/04/2019 12:00:00 AM EDT eCW1 ([facility]) [facility] [address] [facility] [address] 09/03/2019 12:00:00 AM EDT eCW1 ([facility]) [facility] [address] [facility] [place] [address] 08/07/2019 12:00:00 AM EDT eCW1 ([facility]) [facility] [address] [facility] [place] [address] 08/06/2019 12:00:00 AM EDT eCW1 ([facility]) [facility] [address] [facility] [address] 08/04/2019 12:00:00 AM EDT eCW1 [facility]) Medications Medication Brand Name Start Date Product Form Dose Route Admi nistrative Instructions Pharmacy Instructions Status Indications Reaction Description Data Source(s) Ondansetron 4 MG Oral Tablet Ondansetron HCl 4 MG Ondansetro n HCl 4 MG 09/04/2019 12:00:00 AM EDT 1.0 {tablet_as_needed} active Ondansetron HCl 4 MG eCW1 ([facility]) Ondansetron 4 MG Oral Tablet Ondansetron HCl 4 MG Ondansetro n HCl 4 MG 09/04/2019 12:00:00 AM EDT 1.0 {tablet_as_needed} active Ondansetron HCl 4 MG eCW1 ([facility]) Ondansetron 4 MG Oral Tablet Ondansetron HCl 4 MG Ondansetro n HCl 4 MG 09/04/2019 12:00:00 AM EDT 1.0 {tablet_as_needed} active Ondansetron HCl 4 MG eCW1 ([facility]) Ondansetron 4 MG Oral Tablet Ondansetron HCl 4 MG Ondansetro n HCl 4 MG 09/04/2019 12:00:00 AM EDT active 1 tablet as needed eCW1 ([facility]) Ondansetron 4 MG Oral Tablet Ondansetron HCl 4 MG Ondansetro n HCl 4 MG 09/04/2019 12:00:00 AM EDT 1.0 {tablet_as_needed} active Ondansetron HCl 4 MG eCW1 ([facility]) Ondansetron 4 MG Oral Tablet Ondansetron HCl 4 MG Ondansetro n HCl 4 MG 09/04/2019 12:00:00 AM EDT 1.0 {tablet_as_needed} active Ondansetron HCl 4 MG eCW1 ([facility]) Ondansetron 4 MG Oral Tablet Ondansetron HCl 4 MG Ondansetro n HCl 4 MG 09/04/2019 12:00:00 AM EDT 1.0 {tablet_as_needed} active Ondansetron HCl 4 MG eCW1 ([facility]) Ondansetron 4 MG Oral Tablet Ondansetron HCl 4 MG Ondansetro n HCl 4 MG 09/04/2019 12:00:00 AM EDT 1.0 {tablet_as_needed} active Ondansetron HCl 4 MG eCW1 ([facility]) Ondansetron 4 MG Oral Tablet Ondansetron HCl 4 MG Ondansetro n HCl 4 MG 09/04/2019 12:00:00 AM EDT 1.0 {tablet_as_needed} active Ondansetron HCl 4 MG eCW1 ([facility]) Ondansetron 4 MG Oral Tablet Ondansetron HCl 4 MG Ondansetro n HCl 4 MG 09/04/2019 12:00:00 AM EDT active 1 tablet as needed eCW1 ([facility]) Ondansetron 4 MG Oral Tablet Ondansetron HCl 4 MG Ondansetro n HCl 4 MG 09/04/2019 12:00:00 AM EDT 1.0 {tablet_as_needed} active Ondansetron HCl 4 MG eCW1 ([facility]) Ondansetron 4 MG Oral Tablet Ondansetron HCl 4 MG Ondansetro n HCl 4 MG 09/04/2019 12:00:00 AM EDT 1.0 {tablet_as_needed} active Ondansetron HCl 4 MG eCW1 ([facility]) Ondansetron 4 MG Oral Tablet Ondansetron HCl 4 MG Ondansetro n HCl 4 MG 09/04/2019 12:00:00 AM EDT 1.0 {tablet_as_needed} active Ondansetron HCl 4 MG eCW1 ([facility]) Ondansetron 4 MG Oral Tablet Ondansetron HCl 4 MG Ondansetro n HCl 4 MG 09/04/2019 12:00:00 AM EDT 1.0 {tablet_as_needed} active Ondansetron HCl 4 MG eCW1 ([facility]) Insurance Providers Payer name Policy type / Coverage type Policy ID Covered republican ID Covered republican's relationship to sin Policy Sin Plan Information [facility] O [id number] S [id number] [facility] B [id number] S YOU [id number] [facility] [id number] SP [id number] [facility] CHO[facility] [id number] SP [id number] [facility] [id number] Self [id number] ANSI-Commercial [id number] ANSI-Commercial [id number] ANSI-Commercial [id number] ANSI-Commercial [id number] ANSI-Commercial [id number] ANSI-Commercial [id number] ANSI-Commercial [id number] ANSI-Commercial [id number] ANSI-Commercial [id number] [facility] [id number] 0 [id number] [employer]/PPO/POS [id number] [employer]/PPO/POS [id number] [employer] O [id number] S [id number] [id number] SP [id number] PMA MANAGEMENT [facility] [id number] SP [id number] Problems, Conditions, and Diagnoses Code Display Name Description Problem Type Effective Dates Data Source(s) I27.20 [id number] Pulmonary hypertension Problem 05/14/2020 12 :00:00 AM EST eCW1 ([facility]) I48.0 [id number] Paroxysmal atrial fibrillation Problem 05/14/2020 12:00:00 AM EST eCW1 ([facility]) I70.0 [id number] Atherosclerosis of aorta Problem 05/14/2020 12:00:00 AM EST eCW1 ([facility]) [id number] Essential hypertension Essential hypertension Problem 05/09/2020 12:00:00 AM EST MEDENT ([facility], ) F41.8 [id number] Anxiety about health Problem 04/12/2020 12:0 0:00 AM EST eCW1 ([facility]) E66.01 [id number] Morbid (severe) obesity due to excess vanda ories Problem 01/23/2020 12:00:00 AM EDT eCW1 ([facility]) Results ID Date Data Source [id number] 04/23/2020 05:21:00 AM EST [facility] Name Value Range Interpretation Code Description Data Daina rce(s) Supporting Document(s) SARS coronavirus 2 RNA [Presence] in Res piratory specimen by KENDRA with probe detection [facility] This lab was ordered by [facility] a nd reported by [facility]. ID Date Data Source [id number] 04/17/2020 02:00:00 PM EST [facility] Name Value Range Interpretation Code Description Data Daina rce(s) Supporting Document(s) SARS coronavirus 2 RNA [Presence] in Res piratory specimen by KENDRA with probe detection [facility] This lab was ordered by [facility] a nd reported by [facility]. Procedure Social History Code Duration Value Status Description Data Source(s ) Smoking 05/14/2020 12:00:00 AM EST Current Smoker completed Curre nt Smoker eCW1 ([facility]) Smoking 05/14/2020 12:00:00 AM EST Current Smoker completed Curre nt Smoker eCW1 ([facility]) Smoking 05/14/2020 12:00:00 AM EST Current Smoker completed Curre nt Smoker eCW1 ([facility]) 05/09/2020 12:00:00 AM EST Patient is a current smoker, smokes every day completed Patient is a current smoker, smokes [facility] Smoking 04/12/2020 12:00:00 AM EST Current Smoker completed Curre nt Smoker eCW1 ([facility]) Smoking 04/12/2020 12:00:00 AM EST Current Smoker completed Curre nt Smoker eCW1 ([facility]) Smoking 04/12/2020 12:00:00 AM EST Current Smoker completed Curre nt Smoker eCW1 ([facility]) Smoking 04/12/2020 12:00:00 AM EST Current Smoker completed Curre nt Smoker eCW1 ([facility]) Smoking 04/12/2020 12:00:00 AM EST Current Smoker completed Curre nt Smoker eCW1 ([facility]) Smoking 01/26/2020 12:00:00 AM EDT Current Smoker completed Curre nt Smoker eCW1 ([facility]) Smoking 01/26/2020 12:00:00 AM EDT Current Smoker completed Curre nt Smoker eCW1 ([facility]) Smoking 01/26/2020 12:00:00 AM EDT Current Smoker completed Curre nt Smoker eCW1 ([facility]) Smoking 01/26/2020 12:00:00 AM EDT Current Smoker completed Curre nt Smoker eCW1 ([facility]) Vital Signs ID Date Data Source UNK Name Value Range Interpretation Code Description Data Source(s) Body surface area Derived from formula 2.17 m2 2.17 m2 [facility] ([facility]) Body weight 107.050 kg 107.050 kg [facility] ([facility]) [place] body weight 135 [lb_av] 135 [lb_av] [facility] ([facility]) Body mass index (BMI) [Ratio] 37.0 kg/m2 37.0 k g/m2 [facility] ([facility]) Body weight 236.00 [lb_av] 236.00 [lb_av] [facility] ([facility]) Body height 67 [in_i] 67 [in_i] [facility] ([facility]) 5'7" Oxygen saturation in Arterial blood by Pulse oximetry 96 % 96 % [facility] ([facility]) Heart rate 84 /min 84 /min [facility] ([facility]) Diastolic blood pressure 90 mm[Hg] 90 mm[Hg] [facility] ([facility]) Systolic blood pressure 146 mm[Hg] 146 mm[Hg] [facility] Diastolic blood pressure 60 mm[Hg] 60 mm[Hg] eCW1 ([facility]) Systolic blood pressure 112 mm[Hg] 112 mm[Hg] e CW1 ([facility]) Body temperature 97.4 [degF] 97.4 [degF] eCW1 ( [facility]) Respiratory rate 18 /min 18 /min eCW1 ([facility]) Heart rate 99 /min 99 /min eCW1 ([facility]) Body mass index (BMI) [Ratio] 37.12 kg/m2 37.12 kg/m2 [facility] ([facility]) Body height 67 [in_i] 67 [in_i] W1 ([facility]) Body weight 237 [lb_av] 237 [lb_av] eCW1 ([facility]) Diastolic blood pressure 60 mm[Hg] 60 mm[Hg] eCW1 ([facility]) Systolic blood pressure 102 mm[Hg] 102 mm[Hg] e CW1 ([facility]) Body temperature 96.4 [degF] 96.4 [degF] eCW1 ( [facility]) Respiratory rate 18 /min 18 /min eCW1 ([facility]) Heart rate 107 /min 107 /min eCW1 ([facility]) Body mass index (BMI) [Ratio] 38.52 kg/m2 38.52 kg/m2 [facility] ([facility]) Body height 67 [in_us] 67 [in_us] eCW1 ([facility]) Body weight Measured 246 [lb_av] 246 [lb_av] eC W1 ([facility]) Patient Treatment Plan of Care Planned Activity Planned Date Details Description Data Source (s) Ondansetron 4 MG Oral Tablet 09/04/2019 12:00:00 AM EDT eCW1 ([facility]) Ondansetron 4 MG Oral Tablet 09/04/2019 12:00:00 AM EDT eCW1 ([facility])
[2020-05-19 11:33] LABS: BASO # 0.1 10^3/uL (0.0-0.2); BASO % 0.5 % (0.0-1.0); EOS # 0.4 10^3/uL (0.0-0.5); EOS % 3.5 % (0.0-3.0); HEMATOCRIT 38.3 % (36.0-47.0); HEMOGLOBIN 12.4 g/dl (12.0-15.5); LYMPH # 2.2 10^3/uL (1.5-5.0); LYMPH % 21.9 % (24.0-44.0); MEAN CORPUSCULAR HEMOGLOBIN 27.7 pg (27.0-33.0); MEAN CORPUSCULAR HGB CONC 32.4 g/dl (32.0-36.5); MEAN CORPUSCULAR VOLUME 85.7 fl (80.0-96.0); MONO # 0.6 10^3/uL (0.0-0.8); MONO % 5.6 % (0.0-5.0); NEUTROPHILS # 6.9 10^3/uL (1.5-8.5); NEUTROPHILS % 67.9 % (36.0-66.0); PLATELET COUNT, AUTOMATED 396 10^3/uL (150-450); RED BLOOD COUNT 4.47 10^6/uL (4.00-5.40); WHITE BLOOD COUNT 10.1 10^3/uL (4.0-10.0)
[2020-05-19 11:44] LABS: INR 1.06; PARTIAL THROMBOPLASTIN TIME 28.8 SECONDS (24.2-38.5)
[2020-05-19] MEDS ORDERED: NS 1,000 ML IV ONE ×2 (11:45→12:45)
[2020-05-19 11:56] LABS: ALT/SGPT 17 U/L (12-78); BILIRUBIN,DIRECT < 0.1 MG/DL (0.0-0.2); BILIRUBIN,TOTAL 0.5 MG/DL (0.2-1.0); BLOOD UREA NITROGEN 22 MG/DL (7-18); CALCIUM LEVEL 9.9 MG/DL (8.8-10.2); CARBON DIOXIDE LEVEL 29 MEQ/L (21-32); CHLORIDE LEVEL 103 MEQ/L (98-107); GLOMERULAR FILTRATION RATE > 60.0 (>45); GLUCOSE, FASTING 158 MG/DL (70-100); LIPASE 113 U/L (73-393); POTASSIUM SERUM 3.7 MEQ/L (3.5-5.1); SODIUM LEVEL 139 MEQ/L (136-145); TOTAL PROTEIN 6.9 GM/DL (6.4-8.2)
[2020-05-19] MEDS ORDERED: DOCU100C16 PO (12:44)
[2020-05-19] MEDS ORDERED: IBUP200T45 PO (12:44)
[2020-05-19] MEDS ORDERED: ELIQ5TAB PO (12:44)
[2020-05-19] MEDS ORDERED: PANT-23 PO (12:44)
[2020-05-19] MEDS ORDERED: METO1TAB87 PO (12:44)
[2020-05-19] MEDS ORDERED: DIGOXIN INJ 0.5 MG/2 ML AMP (J1160) IV ONE (12:45)
--- OUTSIDE RECORDS SUMMARY | 2020-05-19 12:57 | CCD ---
Author Author [facility] Organization [facility] Address Unknown Phone Unavailable Support Name Relationship Address Phone [facility] Next Of Kin [address] [place] [address] [place] Next Of Kin [address] [place] [address] [facility] Next Of Kin [address] [place] [address] TOBI, DONELL ALTA SEVERINO Next Of Kin [address] [place] [address] [place] Next Of Kin [address] [place] [address] marina wicho ECON Unknown Unavailable Re-disclosure Warning The records [...] is protected by Article 27-F of the [facility] Public Health law. If you continue you may have access to information: Regarding HIV / AIDS; Provided by facilities licensed or operated by the [facility] Office of Mental Health; or Provided by the [facility] Office for People With Developmental Disabilities. If such information is present, then the following [facility] mandated warning applies: This information has been [...] law may result in a fine or custodial sentence or both. A general authorization for the release of medical or other information is NOT sufficient authorization for further disc losure. Allergies and Adverse Reactions Type Description Substance Reaction Status Data Source(s ) Drug allergy Sulfacet Drug allergy Rash Active eCW1 ([facility]) Encounters Encounter Providers Location Date Indications Data Source(s ) Unknown [address] [facility] [id number] 05/17/2020 12:00:00 AM EST eCW1 ([facility]) Unknown [address] [facility] [address] 05/17/2020 12:00:00 AM EST eCW1 ([facility]) Unknown [address] [facility] [address] 05/12/2020 12:00:00 AM EST eCW1 ([facility]) Unknown [address] [facility] [place] [address] 05/12/2020 12:00:00 AM EST eCW1 ([facility]) Unknown [address] [facility] [id number] 05/04/2020 12:00:00 AM EST eCW1 ([facility]) Unknown [address] [facility] [address] 05/04/2020 12:00:00 AM EST eCW1 ([facility]) TeleMedicine Phone E/M by Phys 11-20 Min [address] [place] [address] 04/12/2020 12:00:00 AM EST eCW1 ([facility]) Unknown [address] [facility] [address] 04/12/2020 12:00:00 AM EST eCW1 ([facility]) Unknown [address] [facility] [place] [address] 04/09/2020 12:00:00 AM EST [facility] Unknown [address] [facility] [address] 04/08/2020 12:00:00 AM EST eCW1 ([facility]) Unknown [address] [facility] [address] 02/26/2020 12:00:00 AM EST eCW1 ([facility]) Outpatient 02/16/2020 12:00:00 AM EDT [facility] Outpatient [address] [facility] [address] 01/23/2020 12:00:00 AM EDT eCW1 ([facility]) [facility] [address] [facility] [address] 11/13/2019 12:00:00 AM EDT eCW1 ([facility]) [facility] [address] [facility] [address] 09/04/2019 12:00:00 AM EDT eCW1 ([facility]) [facility] [address] [facility] [address] 09/03/2019 12:00:00 AM EDT eCW1 ([facility]) [facility] [address] [facility] [place] [address] 08/07/2019 12:00:00 AM EDT eCW1 ([facility]) [facility] [address] [facility] [address] 08/06/2019 12:00:00 AM EDT eCW1 ([facility]) [facility] [address] [facility] [place] [address] 08/04/2019 12:00:00 AM EDT eCW1 ([facility]) Medications Medication Brand Name Start Date Product Form Dose Route Admi nistrative Instructions Pharmacy Instructions Status Indications Reaction Description Data Source(s) Ondansetron 4 MG Oral Tablet Ondansetron HCl 4 MG Ondansetro n HCl 4 MG 09/04/2019 12:00:00 AM EDT 1.0 {tablet_as_needed} active Ondansetron HCl 4 MG eCW1 ([facility]) Ondansetron 4 MG Oral Tablet Ondansetron HCl 4 MG Ondansetro n HCl 4 MG 09/04/2019 12:00:00 AM EDT 1.0 {tablet_as_needed} active Ondansetron HCl 4 MG eCW1 ([facility]) Ondansetron 4 MG Oral Tablet Ondansetron HCl 4 MG Ondansetro n HCl 4 MG 09/04/2019 12:00:00 AM EDT 1.0 {tablet_as_needed} active Ondansetron HCl 4 MG eCW1 ([facility]) Ondansetron 4 MG Oral Tablet Ondansetron HCl 4 MG Ondansetro n HCl 4 MG 09/04/2019 12:00:00 AM EDT active 1 tablet as needed eCW1 ([facility]) Ondansetron 4 MG Oral Tablet Ondansetron HCl 4 MG Ondansetro n HCl 4 MG 09/04/2019 12:00:00 AM EDT 1.0 {tablet_as_needed} active Ondansetron HCl 4 MG eCW1 ([facility]) Ondansetron 4 MG Oral Tablet Ondansetron HCl 4 MG Ondansetro n HCl 4 MG 09/04/2019 12:00:00 AM EDT 1.0 {tablet_as_needed} active Ondansetron HCl 4 MG eCW1 ([facility]) Ondansetron 4 MG Oral Tablet Ondansetron HCl 4 MG Ondansetro n HCl 4 MG 09/04/2019 12:00:00 AM EDT 1.0 {tablet_as_needed} active Ondansetron HCl 4 MG eCW1 ([facility]) Ondansetron 4 MG Oral Tablet Ondansetron HCl 4 MG Ondansetro n HCl 4 MG 09/04/2019 12:00:00 AM EDT 1.0 {tablet_as_needed} active Ondansetron HCl 4 MG eCW1 ([facility]) Ondansetron 4 MG Oral Tablet Ondansetron HCl 4 MG Ondansetro n HCl 4 MG 09/04/2019 12:00:00 AM EDT 1.0 {tablet_as_needed} active Ondansetron HCl 4 MG eCW1 ([facility]) Ondansetron 4 MG Oral Tablet Ondansetron HCl 4 MG Ondansetro n HCl 4 MG 09/04/2019 12:00:00 AM EDT active 1 tablet as needed eCW1 ([facility]) Ondansetron 4 MG Oral Tablet Ondansetron HCl 4 MG Ondansetro n HCl 4 MG 09/04/2019 12:00:00 AM EDT 1.0 {tablet_as_needed} active Ondansetron HCl 4 MG eCW1 ([facility]) Ondansetron 4 MG Oral Tablet Ondansetron HCl 4 MG Ondansetro n HCl 4 MG 09/04/2019 12:00:00 AM EDT 1.0 {tablet_as_needed} active Ondansetron HCl 4 MG eCW1 ([facility]) Ondansetron 4 MG Oral Tablet Ondansetron HCl 4 MG Ondansetro n HCl 4 MG 09/04/2019 12:00:00 AM EDT 1.0 {tablet_as_needed} active Ondansetron HCl 4 MG eCW1 ([facility]) Ondansetron 4 MG Oral Tablet Ondansetron HCl 4 MG Ondansetro n HCl 4 MG 09/04/2019 12:00:00 AM EDT 1.0 {tablet_as_needed} active Ondansetron HCl 4 MG eCW1 ([facility]) Insurance Providers Payer name Policy type / Coverage type Policy ID Covered constitution party ID Covered constitution party's relationship to sin Policy Sin Plan Information [employer] [place] [employer] [id number] SP [id number] [employer] O [id number] S [id number] [facility] B [id number] S YOU [id number] [employer] [place] [employer] PLUS [id number] SP [id number] [facility] [id number] Self [id number] ANSI-Commercial [id number] ANSI-Commercial [id number] ANSI-Commercial [id number] ANSI-Commercial [id number] ANSI-Commercial [id number] ANSI-Commercial [id number] ANSI-Commercial [id number] ANSI-Commercial [id number] ANSI-Commercial [id number] [facility] [id number] 0 [id number] [employer]/PPO/POS [id number] 0 [id number] [employer]/PPO/POS [id number] 0 [id number] [employer] O [id number] S [id number] [facility] 306/[id number] SP [id number] PMA MANAGEMENT [facility] [id number] SP [id number] Problems, Conditions, and Diagnoses Code Display Name Description Problem Type Effective Dates Data Source(s) I27.20 [id number] Pulmonary hypertension Problem 05/14/2020 12 :00:00 AM EST eCW1 ([facility]) I48.0 [id number] Paroxysmal atrial fibrillation Problem 05/14/2020 12:00:00 AM EST eCW1 ([facility]) I70.0 [id number] Atherosclerosis of aorta Problem 05/14/2020 12:00:00 AM EST eCW1 ([facility]) [id number] Essential hypertension Essential hypertension Problem 05/09/2020 12:00:00 AM EST [facility] ([facility], ) F41.8 [id number] Anxiety about health Problem 04/12/2020 12:0 0:00 AM EST eCW1 ([facility]) E66.01 [id number] Morbid (severe) obesity due to excess vanda ories Problem 01/23/2020 12:00:00 AM EDT eCW1 ([facility]) Results ID Date Data Source [id number] 04/23/2020 05:21:00 AM EST [facility] Name Value Range Interpretation Code Description Data Daina rce(s) Supporting Document(s) SARS coronavirus 2 RNA [Presence] in Res piratory specimen by KENDRA with probe detection [facility] This lab was ordered by [facility] a nd reported by [facility]. ID Date Data Source [id number] 04/17/2020 02:00:00 PM EST [facility] Name Value Range Interpretation Code Description Data Daina rce(s) Supporting Document(s) SARS coronavirus 2 RNA [Presence] in Res piratory specimen by KENDRA with probe detection [facility] This lab was ordered by [facility] a nd reported by [facility]. Procedure Social History Code Duration Value Status Description Data Source(s ) Smoking 05/14/2020 12:00:00 AM EST Current Smoker completed Curre nt Smoker eCW1 ([facility]) Smoking 05/14/2020 12:00:00 AM EST Current Smoker completed Curre nt Smoker eCW1 ([facility]) Smoking 05/14/2020 12:00:00 AM EST Current Smoker completed Curre nt Smoker eCW1 ([facility]) 05/09/2020 12:00:00 AM EST Patient is a current smoker, smokes every day completed Patient is a current smoker, smokes every day [facility] ( [facility]) Smoking 04/12/2020 12:00:00 AM EST Current Smoker completed Curre nt Smoker eCW1 ([facility]) Smoking 04/12/2020 12:00:00 AM EST Current Smoker completed Curre nt Smoker eCW1 ([facility]) Smoking 04/12/2020 12:00:00 AM EST Current Smoker completed Curre nt Smoker eCW1 ([facility]) Smoking 04/12/2020 12:00:00 AM EST Current Smoker completed Curre nt Smoker eCW1 ([facility]) Smoking 04/12/2020 12:00:00 AM EST Current Smoker completed Curre nt Smoker eCW1 ([facility]) Smoking 01/26/2020 12:00:00 AM EDT Current Smoker completed Curre nt Smoker eCW1 ([facility]) Smoking 01/26/2020 12:00:00 AM EDT Current Smoker completed Curre nt Smoker eCW1 ([facility]) Smoking 01/26/2020 12:00:00 AM EDT Current Smoker completed Curre nt Smoker eCW1 ([facility]) Smoking 01/26/2020 12:00:00 AM EDT Current Smoker completed Curre nt Smoker eCW1 ([facility]) Vital Signs ID Date Data Source UNK Name Value Range Interpretation Code Description Data Source(s) Body surface area Derived from formula 2.17 m2 2.17 m2 [facility] ([facility]) Body weight 107.050 kg 107.050 kg [facility] ([facility]) [place] body weight 135 [lb_av] 135 [lb_av] [facility] ([facility]) Body mass index (BMI) [Ratio] 37.0 kg/m2 37.0 k g/m2 [facility] ([facility]) Body weight 236.00 [lb_av] 236.00 [lb_av] [facility] ([facility]) Body height 67 [in_i] 67 [in_i] [facility] ([facility]) 5'7" Oxygen saturation in Arterial blood by Pulse oximetry 96 % 96 % [facility] ([facility]) Heart rate 84 /min 84 /min [facility] ([facility]) Diastolic blood pressure 90 mm[Hg] 90 mm[Hg] [facility] Systolic blood pressure 146 mm[Hg] 146 mm[Hg] [facility] Diastolic blood pressure 60 mm[Hg] 60 mm[Hg] eCW1 ([facility]) Systolic blood pressure 112 mm[Hg] 112 mm[Hg] e CW1 ([facility]) Body temperature 97.4 [degF] 97.4 [degF] eCW1 ( [facility]) Respiratory rate 18 /min 18 /min eCW1 ([facility]) Heart rate 99 /min 99 /min eCW1 ([facility]) Body mass index (BMI) [Ratio] 37.12 kg/m2 37.12 kg/m2 [facility]) Body height 67 [in_i] 67 [in_i] W1 ([facility]) Body weight 237 [lb_av] 237 [lb_av] eCW1 ([facility]) Diastolic blood pressure 60 mm[Hg] 60 mm[Hg] eCW1 ([facility]) Systolic blood pressure 102 mm[Hg] 102 mm[Hg] e CW1 ([facility]) Body temperature 96.4 [degF] 96.4 [degF] eCW1 ( [facility]) Respiratory rate 18 /min 18 /min eCW1 ([facility]) Heart rate 107 /min 107 /min eCW1 ([facility]) Body mass index (BMI) [Ratio] 38.52 kg/m2 38.52 kg/m2 [facility] ([facility]) Body height 67 [in_us] 67 [in_us] eCW1 ([facility]) Body weight Measured 246 [lb_av] 246 [lb_av] eC W1 ([facility]) Patient Treatment Plan of Care Planned Activity Planned Date Details Description Data Source (s) Ondansetron 4 MG Oral Tablet 09/04/2019 12:00:00 AM EDT eCW1 ([facility]) Ondansetron 4 MG Oral Tablet 09/04/2019 12:00:00 AM EDT eCW1 ([facility])
--- OUTSIDE RECORDS SUMMARY | 2020-05-19 14:13 | CCD ---
Author Author [facility] Organization [facility] Address Unknown Phone Unavailable Support Name Relationship Address Phone [facility] Next Of Kin [address] [place] [address] [place] Next Of Kin [address] [place] [address] [facility]* Next Of Kin [address] [place] [address] TOBI, DONELL ALTA SEVERINO Next Of Kin [address] [place] [address] [place] Next Of Kin [address] [place] [address] marina wicho ECON Unknown Unavailable Re-disclosure Warning [...] is protected by Article 27-F of the [facility] Public Health law. If you continue you may have access to information: Regarding HIV / AIDS; Provided by facilities licensed or operated by the [facility] Office of Mental Health; or Provided by the [facility] Office for People With Developmental Disabilities. If such information is present, then the following [facility] mandated warning applies: This information has been [...] allergy Sulfacet Drug allergy Rash Active eCW1 ([facility]) Encounters Encounter Providers Location Date Indications Data Source(s ) Unknown [address] [facility] [id number] 05/17/2020 12:00:00 AM EST eCW1 ([facility]) Unknown [address] [facility] [address] 05/17/2020 12:00:00 AM EST eCW1 ([facility]) Unknown [address] [facility] [address] 05/12/2020 12:00:00 AM EST eCW1 ([facility]) Unknown [address] [facility] [place] [address] 05/12/2020 12:00:00 AM EST eCW1 ([facility]) Unknown [address] [facility] [id number] 05/04/2020 12:00:00 AM EST eCW1 ([facility]) Unknown [address] [facility] [id number] 05/04/2020 12:00:00 AM EST eCW1 ([facility]) TeleMedicine Phone E/M by Phys 11-20 Min [address] [place] [address] 04/12/2020 12:00:00 AM EST eCW1 ([facility]) Unknown [address] [facility] [address] 04/12/2020 12:00:00 AM EST eCW1 ([facility]) Unknown [address] [facility] [place] [address] 04/09/2020 12:00:00 AM EST [facility]CW1 ([facility]) [place] [address] [facility] [place] [address] 04/08/2020 12:00:00 AM EST eCW1 ([facility]) [place] [address] [facility] [place] [address] 02/26/2020 12:00:00 AM EST eCW1 ([facility]) Outpatient 02/16/2020 12:00:00 AM EDT [facility] [address] [facility] [place] [address] 01/23/2020 12:00:00 AM EDT eCW1 ([facility]) [facility] [address] [facility] [place] [address] 11/13/2019 12:00:00 AM EDT eCW1 ([facility]) [facility] [address] [facility] [place] [address] 09/04/2019 12:00:00 AM EDT eCW1 ([facility]) [facility] [address] [facility] [place] [address] 09/03/2019 12:00:00 AM EDT eCW1 ([facility]) [facility] [address] [facility] [place] [address] 08/07/2019 12:00:00 AM EDT eCW1 ([facility]) [facility] [address] [facility] [place] [address] 08/06/2019 12:00:00 AM EDT [facility]CW1 [facility]) [facility] [address] [facility] [place] [address] 08/04/2019 12:00:00 AM EDT eCW1 ([facility]) Medications Medication Brand Name Start Date Product Form Dose Route Admi nistrative Instructions Pharmacy Instructions Status Indications Reaction Description Data Source(s) Ondansetron 4 MG Oral Tablet Ondansetron HCl 4 MG Ondansetro n HCl 4 MG 09/04/2019 12:00:00 AM EDT 1.0 {tablet_as_needed} active Ondansetron HCl 4 MG eCW1 ([facility]) Ondansetron 4 MG Oral Tablet Ondansetron HCl 4 MG Ondansetro n HCl 4 MG 09/04/2019 12:00:00 AM EDT 1.0 {tablet_as_needed} active Ondansetron HCl 4 MG eCW1 ([facility]) Ondansetron 4 MG Oral Tablet Ondansetron HCl 4 MG Ondansetro n HCl 4 MG 09/04/2019 12:00:00 AM EDT 1.0 {tablet_as_needed} active Ondansetron HCl 4 MG eCW1 ([facility]) Ondansetron 4 MG Oral Tablet Ondansetron HCl 4 MG Ondansetro n HCl 4 MG 09/04/2019 12:00:00 AM EDT active 1 tablet as needed eCW1 ([facility]) Ondansetron 4 MG Oral Tablet Ondansetron HCl 4 MG Ondansetro n HCl 4 MG 09/04/2019 12:00:00 AM EDT 1.0 {tablet_as_needed} active Ondansetron HCl 4 MG eCW1 ([facility]) Ondansetron 4 MG Oral Tablet Ondansetron HCl 4 MG Ondansetro n HCl 4 MG 09/04/2019 12:00:00 AM EDT 1.0 {tablet_as_needed} active Ondansetron HCl 4 MG eCW1 ([facility]) Ondansetron 4 MG Oral Tablet Ondansetron HCl 4 MG Ondansetro n HCl 4 MG 09/04/2019 12:00:00 AM EDT 1.0 {tablet_as_needed} active Ondansetron HCl 4 MG eCW1 ([facility]) Ondansetron 4 MG Oral Tablet Ondansetron HCl 4 MG Ondansetro n HCl 4 MG 09/04/2019 12:00:00 AM EDT 1.0 {tablet_as_needed} active Ondansetron HCl 4 MG eCW1 ([facility]) Ondansetron 4 MG Oral Tablet Ondansetron HCl 4 MG Ondansetro n HCl 4 MG 09/04/2019 12:00:00 AM EDT 1.0 {tablet_as_needed} active Ondansetron HCl 4 MG eCW1 ([facility]) Ondansetron 4 MG Oral Tablet Ondansetron HCl 4 MG Ondansetro n HCl 4 MG 09/04/2019 12:00:00 AM EDT active 1 tablet as needed eCW1 ([facility]) Ondansetron 4 MG Oral Tablet Ondansetron HCl 4 MG Ondansetro n HCl 4 MG 09/04/2019 12:00:00 AM EDT 1.0 {tablet_as_needed} active Ondansetron HCl 4 MG eCW1 ([facility]) Ondansetron 4 MG Oral Tablet Ondansetron HCl 4 MG Ondansetro n HCl 4 MG 09/04/2019 12:00:00 AM EDT 1.0 {tablet_as_needed} active Ondansetron HCl 4 MG eCW1 ([facility]) Ondansetron 4 MG Oral Tablet Ondansetron HCl 4 MG Ondansetro n HCl 4 MG 09/04/2019 12:00:00 AM EDT 1.0 {tablet_as_needed} active Ondansetron HCl 4 MG eCW1 ([facility]) Ondansetron 4 MG Oral Tablet Ondansetron HCl 4 MG Ondansetro n HCl 4 MG 09/04/2019 12:00:00 AM EDT 1.0 {tablet_as_needed} active Ondansetron HCl 4 MG eCW1 ([facility]) Insurance Providers Payer name Policy type / Coverage type Policy ID Covered republican ID Covered republican's relationship to sin Policy Sin Plan Information [employer] [place] [employer] [id number] SP [id number] [employer] O [id number] S [id number] [facility] B [id number] S YOU [id number] [employer] [place] [employer] PLUS [id number] SP [id number] [facility] [id number] Self [id number] ANSI-Commercial [id number] ANSI-Commercial [id number] ANSI-Commercial [id number] ANSI-Commercial [id number] ANSI-Commercial [id number] ANSI-Commercial [id number] ANSI-Commercial [id number] ANSI-Commercial [id number] ANSI-Commercial [id number] [facility] [id number] 0 [id number] [employer]/PPO/POS [id number] [employer]/PPO/POS [id number] [employer] O [id number] S [id number] [facility] [id number] SP [id number] PMA MANAGEMENT [facility] [id number] SP [id number] Problems, Conditions, and Diagnoses Code Display Name Description Problem Type Effective Dates Data Source(s) I27.20 [id number] Pulmonary hypertension Problem 05/14/2020 12 :00:00 AM EST eCW1 ([facility]) I48.0 [id number] Paroxysmal atrial fibrillation Problem 05/14/2020 12:00:00 AM EST eCW1 ([facility]) I70.0 [id number] Atherosclerosis of aorta Problem 05/14/2020 12:00:00 AM EST eCW1 ([facility]) [id number] Essential hypertension Essential hypertension Problem 05/09/2020 12:00:00 AM EST MEDENT ([facility], ) F41.8 [id number] Anxiety about health Problem 04/12/2020 12:0 0:00 AM EST eCW1 ([facility]) E66.01 [id number] Morbid (severe) obesity due to excess vanda ories Problem 01/23/2020 12:00:00 AM EDT eCW1 ([facility]) Results ID Date Data Source [id number] 04/23/2020 05:21:00 AM EST [facility] Name Value Range Interpretation Code Description Data Daina rce(s) Supporting Document(s) SARS coronavirus 2 RNA [Presence] in Res piratory specimen by KENDRA with probe detection [facility] This lab was ordered by [facility] a nd reported by [facility]. ID Date Data Source [id number] 04/17/2020 02:00:00 PM EST [facility] Name Value Range Interpretation Code Description Data Daina rce(s) Supporting Document(s) SARS coronavirus 2 RNA [Presence] in Res piratory specimen by KENDRA with probe detection [facility] This lab was ordered by [facility] a nd reported by [facility]. Procedure Social History Code Duration Value Status Description Data Source(s ) Smoking 05/14/2020 12:00:00 AM EST Current Smoker completed Curre nt Smoker eCW1 ([facility]) Smoking 05/14/2020 12:00:00 AM EST Current Smoker completed Curre nt Smoker eCW1 ([facility]) Smoking 05/14/2020 12:00:00 AM EST Current Smoker completed Curre nt Smoker eCW1 ([facility]) 05/09/2020 12:00:00 AM EST Patient is a current smoker, smokes every day completed Patient is a current smoker, smokes every day [facility] Smoking 04/12/2020 12:00:00 AM EST Current Smoker completed Curre nt Smoker eCW1 ([facility]) Smoking 04/12/2020 12:00:00 AM EST Current Smoker completed Curre nt Smoker eCW1 ([facility]) Smoking 04/12/2020 12:00:00 AM EST Current Smoker completed Curre nt Smoker eCW1 ([facility]) Smoking 04/12/2020 12:00:00 AM EST Current Smoker completed Curre nt Smoker eCW1 ([facility]) Smoking 04/12/2020 12:00:00 AM EST Current Smoker completed Curre nt Smoker eCW1 ([facility]) Smoking 01/26/2020 12:00:00 AM EDT Current Smoker completed Curre nt Smoker eCW1 ([facility]) Smoking 01/26/2020 12:00:00 AM EDT Current Smoker completed Curre nt Smoker eCW1 ([facility]) Smoking 01/26/2020 12:00:00 AM EDT Current Smoker completed Curre nt Smoker eCW1 ([facility]) Smoking 01/26/2020 12:00:00 AM EDT Current Smoker completed Curre nt Smoker eCW1 ([facility]) Vital Signs ID Date Data Source UNK Name Value Range Interpretation Code Description Data Source(s) Body surface area Derived from formula 2.17 m2 2.17 m2 [facility] ([facility]) Body weight 107.050 kg 107.050 kg [facility] ([facility]) [place] body weight 135 [lb_av] 135 [lb_av] [facility] ([facility]) Body mass index (BMI) [Ratio] 37.0 kg/m2 37.0 k g/m2 [facility] ([facility]) Body weight 236.00 [lb_av] 236.00 [lb_av] [facility] ([facility]) Body height 67 [in_i] 67 [in_i] [facility] ([facility]) 5'7" Oxygen saturation in Arterial blood by Pulse oximetry 96 % 96 % [facility] ([facility]) Heart rate 84 /min 84 /min [facility] ([facility]) Diastolic blood pressure 90 mm[Hg] 90 mm[Hg] [facility] Systolic blood pressure 146 mm[Hg] 146 mm[Hg] [facility] Diastolic blood pressure 60 mm[Hg] 60 mm[Hg] eCW1 ([facility]) Systolic blood pressure 112 mm[Hg] 112 mm[Hg] e CW1 ([facility]) Body temperature 97.4 [degF] 97.4 [degF] eCW1 ( [facility]) Respiratory rate 18 /min 18 /min eCW1 ([facility]) Heart rate 99 /min 99 /min eCW1 ([facility]) Body mass index (BMI) [Ratio] 37.12 kg/m2 37.12 kg/m2 [facility]1 ([facility]) Body height 67 [in_i] 67 [in_i] W1 ([facility]) Body weight 237 [lb_av] 237 [lb_av] eCW1 ([facility]) Diastolic blood pressure 60 mm[Hg] 60 mm[Hg] eCW1 ([facility]) Systolic blood pressure 102 mm[Hg] 102 mm[Hg] e CW1 ([facility]) Body temperature 96.4 [degF] 96.4 [degF] eCW1 ( [facility]) Respiratory rate 18 /min 18 /min eCW1 ([facility]) Heart rate 107 /min 107 /min eCW1 ([facility]) Body mass index (BMI) [Ratio] 38.52 kg/m2 38.52 kg/m2 [facility] ([facility]) Body height 67 [in_us] 67 [in_us] eCW1 ([facility]) Body weight Measured 246 [lb_av] 246 [lb_av] eC W1 ([facility]) Patient Treatment Plan of Care Planned Activity Planned Date Details Description Data Source (s) Ondansetron 4 MG Oral Tablet 09/04/2019 12:00:00 AM EDT eCW1 ([facility]) Ondansetron 4 MG Oral Tablet 09/04/2019 12:00:00 AM EDT eCW1 ([facility])
--- NOTE | 2020-05-19 14:26 | HPEPDOC ---
[facility] Medical History & Physical Date of Admission May 19, 2020 Date of Service: May 19, 2020 History and Physical Chief complaint: Who presented to the ER with rectal bleeding History of present illness: Patient is a 65-year-old female who presented to the emergency room after experiencing multiple bloody bowel movements since 1 AM is reported that she has had greater than 10 bowel movements containing mostly blood and some stool. Patient reports that she does not experience any abdominal pain, nausea or vomiting. Denies any urinary discomfort. Patient reports that she did experience some lightheadedness and dizziness upon arrival to emergency room, however, this has subsided after she has received IV fluid hydration. Patient denies any chest pain but does report palpitations earlier on. Patient denies any change in her baseline shortness of breath. Denies any cough, fevers or chills. Upon arrival to emergency room, patient was found to be in A. fib with RVR, however, she had received digoxin and was given IV fluid hydration. Upon my examination she is in sinus rhythm. Past Medical History: HTN A. fib (on Eliquis and metoprolol) Pulmonary HTN Suspected KRISTEN; sleep study scheduled Pre-DM2 Anxiety Obesity Recent PNA / Empyema (s/p Chest tube and antibiotic course) Past Surgical History: Appendectomy, 1975 Laminectomy 2002 Colonoscopy 2018 with polyps Allergies: See below Medications: See below Family History: - No history of malignancies Social History: - Denies the use illicit drugs; patient reports that she is a smoker of 20 years at one [facility], however, she has been cutting down. 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 [employer] Review of Systems: 10 point review of systems complete, all negative otherwise stated in HPI Physical exam: - Vitals: BP [130/86], HR [76], RR [16], Sat [96%RA], Temp [97.5F] - General: Lying in bed, No acute distress, Speaking in full sentences, AAOx3 - HEENT: NC, AT, PERRLA - CVS: RRR, +S1S2 - Lungs: Fair air entry bilaterally, No appreciable wheezing / rales / rhonchi - Abdomen: Soft, Non-distended, Non-tender - Extremities: No lower extremity edema, No calf tenderness - Neuro: No focal motor or sensory deficit - Skin: No visible rashes Labs: See below Imaging: See below EKG: See below Assessment and Plan: Acute blood loss anemia / Symptomatic anemia - likely 2/2 GI bleed - likely 2/2 lower GI bleed, less likely 2/2 upper - Presented to the ER with multiple bloody bowel movements, non-painful - She had reported lightheadedness and dizziness upon arrival - A she was in A. fib with RVR upon arrival; has since converted to sinus rhythm - Hg noted to be 12.4; higher than baseline, likely 2/2 hemo-concentration - Will trend H&H; will transfuse as needed, patient has already been consented for transfusion - Will start Protonix / Carafate - Will hold Eliquis for now - Consulted and discussed with GI, Dr. Ashton - Will start clear liquid diet for now A. fib; s/p RVR - Upon arrival to ER patient was in A. fib with RVR; currently is now in sinus - c/w IV fluid hydration - s/p Digoxin in the ER - Will hold Eliquis HTN - BP currently is normotensive - BP on arrival was on lower limits of normal - Will c/w IV fluid hydration Pulmonary HTN - ECHO 04/25/2020 with evidence of pulmonary HTN / elevated CVP Suspected KRISTEN - Patient has a sleep study scheduled Pre-DM2 - A1c on 01/24/2020 was 6.3 - c/w Dietary modifications Anxiety - Currently not on medications Obesity - BMI of 37.7 - Complicating medical care Recent PNA / Empyema (04/23/2020) - s/p Chest tube and antibiotic course - Has followed up with Dr. Armando for repeat imaging Gastrointestinal prophylaxis - Will start Protonix / Carafate (See above) DVT prophylaxis - Will start TEDs/Sequentials - Full anticoagulation with Eliquis on hold Vital Signs Vital Signs Date Time Temp Pulse Resp B/P (MAP) Pulse Ox O2 Delivery O2 Flow Rate FiO2 05/19/20 12:58 110 05/19/20 12:14 05/19/20 10:34 97.5 18 96 Room Air Laboratory Data Labs 24H Laboratory Tests 2 05/19/20 11:17: Immature Granulocyte % (Auto) 0.6, Neutrophils (%) (Auto) 67.9H, Lymphocytes (%) (Auto) 21.9L, Monocytes (%) (Auto) 5.6H, Eosinophils (%) (Auto) 3.5H, Basophils (%) (Auto) 0.5, Neutrophils # (Auto) 6.9, Lymphocytes # (Auto) 2.2, Monocytes # (Auto) 0.6, Eosinophils # (Auto) 0.4, Basophils # (Auto) 0.1, Nucleated Red Blood Cells % (auto) 0.0, Prothrombin Time 14.0, Prothromb Time International Ratio 1.06, Activated Partial Thromboplast Time 28.8, Anion Gap 7L, Glomerular Filtration Rate > 60.0, Lactic Acid Level 2.1*H, Calcium Level 9.9, Total Bilirubin 0.5, Direct Bilirubin < 0.1, Aspartate Amino Transf (AST/SGOT) 7, Alanine Aminotransferase (ALT/SGPT) 17, Alkaline Phosphatase 129H, Total Protein 6.9, Albumin 3.0L, Albumin/Globulin Ratio 0.8L, Lipase 113 CBC/BMP Laboratory Tests 05/19/20 11:17 Home Medications Scheduled Apixaban (Eliquis) 5 Mg Tablet, 5 MG PO BID Metoprolol Tartrate (Metoprolol Tartrate) 25 Mg Tablet, 12.5 MG PO BID Multivitamins (Thera M Plus Tablet) 1 Each Tablet, 1 TAB PO DAILY [place]-3 Acid Ethyl Esters ([place]-3 Acid Ethyl Esters) 1 Gm Capsule, 2 GM PO DAILY Pantoprazole Sodium (Pantoprazole Sodium) 40 Mg Tablet.dr, 40 MG PO QHS Scheduled PRN Docusate Sodium (Docusate Sodium) 100 Mg Capsule, 100 MG PO BID PRN for CONSTIPATION Ibuprofen (Ibu-200) 200 Mg Tablet, 800 MG PO Q6H PRN for PAIN Allergies Coded Allergies: Penicillins (Verified Allergy, Intermediate, RASH, HIVES, 05/19/20) Sulfa (Sulfonamide Antibiotics) (Verified Allergy, Intermediate, RASH, 05/19/20) DANIEL HODGE MD May 19, 2020 14:26
[2020-05-19 14:36] LABS: HEMATOCRIT 34.4 % (36.0-47.0)
--- NOTE | 2020-05-19 14:55 | ECGEPIP ---
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
[2020-05-19] MEDS: ACETAMINOPHEN 500 MG TAB PO PRN (15:04)
[2020-05-19] MEDS: NS 1,000 ML IV SCH ×2 (15:04→23:57)
[2020-05-19 15:12] LABS: RSV AMPLIFICATION NEGATIVE (NEGATIVE)
[2020-05-19 17:40] VITALS: BP 145/74
[2020-05-19] MEDS: PANTOPRAZOLE 40MG VIAL (C9113 PER 1) IV SCH (17:59)
[2020-05-19] MEDS: SUCRALFATE 1 GM TAB PO SCH ×2 (17:59→20:34)
[2020-05-19 20:00] VITALS: BP 108/67
[2020-05-19 20:15] LABS: HEMATOCRIT 31.4 % (36.0-47.0); HEMOGLOBIN 10.2 g/dl (12.0-15.5)
[2020-05-20] VITALS: BP 132/68
[2020-05-20 00:12] LABS: HEMOGLOBIN 10.4 g/dl (12.0-15.5)
[2020-05-20] MEDS: PANTOPRAZOLE 40MG VIAL (C9113 PER 1) IV SCH (02:46)
[2020-05-20 04:00] VITALS: BP 116/59
[2020-05-20 05:56] LABS: BASO % 0.3 % (0.0-1.0); EOS # 0.4 10^3/uL (0.0-0.5); EOS % 6.2 % (0.0-3.0); HEMATOCRIT 32.9 % (36.0-47.0); HEMOGLOBIN 10.7 g/dl (12.0-15.5); LYMPH # 2.1 10^3/uL (1.5-5.0); LYMPH % 29.8 % (24.0-44.0); MEAN CORPUSCULAR HEMOGLOBIN 28.8 pg (27.0-33.0); MEAN CORPUSCULAR HGB CONC 32.5 g/dl (32.0-36.5); MEAN CORPUSCULAR VOLUME 88.4 fl (80.0-96.0); MONO # 0.5 10^3/uL (0.0-0.8); MONO % 7.1 % (0.0-5.0); PLATELET COUNT, AUTOMATED 328 10^3/uL (150-450); RED BLOOD COUNT 3.72 10^6/uL (4.00-5.40); WHITE BLOOD COUNT 7.1 10^3/uL (4.0-10.0)
[2020-05-20 06:27] LABS: BLOOD UREA NITROGEN 13 MG/DL (7-18); CALCIUM LEVEL 8.6 MG/DL (8.8-10.2); CARBON DIOXIDE LEVEL 27 MEQ/L (21-32); CHLORIDE LEVEL 109 MEQ/L (98-107); CREATININE FOR GFR 0.63 MG/DL (0.55-1.30); GLOMERULAR FILTRATION RATE > 60.0 (>45); GLUCOSE, FASTING 123 MG/DL (70-100); MAGNESIUM LEVEL 1.8 MG/DL (1.8-2.4); POTASSIUM SERUM 3.5 MEQ/L (3.5-5.1); SODIUM LEVEL 145 MEQ/L (136-145)
[2020-05-20] MEDS ORDERED: MOM 30ML SUSPENSION UDC PO ONE (07:00)
[2020-05-20 08:00] VITALS: BP 146/78
[2020-05-20] MEDS: SUCRALFATE 1 GM TAB PO SCH ×2 (09:18→12:01)
--- NOTE | 2020-05-20 10:51 | IPNPDOC ---
Text Note Date of Service The patient was seen on 05/20/20. NOTE Subjective: Patient is a 65-year-old female who presented to the emergency room after experiencing multiple bloody bowel movements since 1 AM is reported that she has had greater than 10 bowel movements containing mostly blood and some stool. Patient reports that she does not experience any abdominal pain, nausea or vomiting. Denies any urinary discomfort. Patient reports that she did experience some lightheadedness and dizziness upon arrival to emergency room, however, this has subsided after she has received IV fluid hydration. Upon arrival to emergency room, patient was found to be in A. fib with RVR, however, she had received digoxin and was given IV fluid hydration. Upon examination she is in sinus rhythm. Patient was admitted to the hospital service for further evaluation and treatment. Gastroenterology was called on consultation. Patient was seen and examined at the bedside. Patient denies any chest pain, shortness breath, palpitations. Denies any nausea, vomiting, abdominal pain, diarrhea, or urinary discomfort. Objective: Vitals (See below) General: Lying in bed, appears comfortable, AAOx3 HEENT: NC, AT CVS: +S1S2 Lungs: Fair air entry b/l, no visual wheezing, rhonchi, rales Abdomen: Soft, nondistended, without any tenderness Extremities: No evidence of edema, - Calf tenderness Assessment and plan: Acute blood loss anemia / Symptomatic anemia - likely 2/2 GI bleed - likely 2/2 lower GI bleed, less likely 2/2 upper - Patient has had bloody bowel movements before arrival; has not had any bloody bowel movements since admission - s/p Light headedness - s/p A. fib with RVR - Hg noted to be 12.4 on admission; has remained stable at ~10.4 - Will transfuse as required - c/w Protonix / Carafate - Eliquis on hold - Consulted and discussed with GI, Dr. Ashton; colonoscopy for tomorrow - c/w clear liquid diet for now A. fib; s/p RVR - Upon arrival to ER patient was in A. fib with RVR; currently is now in sinus - Will DC IV fluid hydration - s/p Digoxin in the ER - Will resume beta kristine today - Will hold Eliquis HTN - BP hypertensive this mornign - Will DC IV fluids - Will start Metoprolol Pulmonary HTN - ECHO 04/25/2020 with evidence of pulmonary HTN / elevated CVP Suspected KRISTEN - Patient has a sleep study scheduled Pre-DM2 - A1c on 01/24/2020 was 6.3 - c/w Dietary modifications Anxiety - Currently not on medications Obesity - BMI of 37.7 - Complicating medical care Recent PNA / Empyema (04/23/2020) - s/p Chest tube and antibiotic course - Has followed up with Dr. Armando for repeat imaging Gastrointestinal prophylaxis - c/w Protonix / Carafate (See above) DVT prophylaxis - c/w TEDs/Sequentials - Full anticoagulation with Eliquis on hold Disposition: - Anticipate discharge within 24 hours after colonoscopy VS,Earl, I+O VS, Earl, I+O Laboratory Tests 05/19/20 11:17 05/19/20 14:26 05/19/20 20:08 05/19/20 23:57 05/20/20 05:31 Vital Signs Date Time Temp Pulse Resp B/P (MAP) Pulse Ox O2 Delivery O2 Flow Rate FiO2 05/20/20 08:00 98.4 76 18 146/78 (100) 94 Room Air I&O- Last 24 Hours up to 6 AM 05/20/20 06:00 Intake Total 2510 ml Output Total 750 ml Balance 1760 ml DANIEL HODGE MD May 20, 2020 10:51
[2020-05-20 12:00] VITALS: BP 174/98
[2020-05-20] MEDS: METOPROLOL TART 12.5 MG PER 1/2 TAB PO SCH ×2 (12:01→21:16)
[2020-05-20] MEDS: ACETAMINOPHEN 500 MG TAB PO PRN (15:45)
[2020-05-20 15:47] VITALS: BP 170/84
[2020-05-20] MEDS ORDERED: POLYETHYLENE GLYCOL (MIRALAX) 238GM BOTTLE PO ONE (17:00)
[2020-05-20 20:00] VITALS: BP 150/78
[2020-05-21] VITALS: BP 149/69
[2020-05-21 04:00] VITALS: BP 128/61
[2020-05-21 04:57] LABS: BASO % 0.3 % (0.0-1.0); EOS # 0.4 10^3/uL (0.0-0.5); EOS % 6.3 % (0.0-3.0); HEMATOCRIT 32.7 % (36.0-47.0); HEMOGLOBIN 10.5 g/dl (12.0-15.5); LYMPH # 1.9 10^3/uL (1.5-5.0); LYMPH % 27.9 % (24.0-44.0); MEAN CORPUSCULAR HEMOGLOBIN 28.2 pg (27.0-33.0); MEAN CORPUSCULAR HGB CONC 32.1 g/dl (32.0-36.5); MEAN CORPUSCULAR VOLUME 87.9 fl (80.0-96.0); MONO # 0.5 10^3/uL (0.0-0.8); MONO % 7.6 % (0.0-5.0); NEUTROPHILS % 57.5 % (36.0-66.0); PLATELET COUNT, AUTOMATED 321 10^3/uL (150-450); RED BLOOD COUNT 3.72 10^6/uL (4.00-5.40)
[2020-05-21 05:21] LABS: BLOOD UREA NITROGEN 10 MG/DL (7-18); CALCIUM LEVEL 9.3 MG/DL (8.8-10.2); CARBON DIOXIDE LEVEL 30 MEQ/L (21-32); CHLORIDE LEVEL 108 MEQ/L (98-107); CREATININE FOR GFR 0.63 MG/DL (0.55-1.30); GLOMERULAR FILTRATION RATE > 60.0 (>45); GLUCOSE, FASTING 107 MG/DL (70-100); MAGNESIUM LEVEL 2.3 MG/DL (1.8-2.4); POTASSIUM SERUM 3.7 MEQ/L (3.5-5.1); SODIUM LEVEL 146 MEQ/L (136-145)
[2020-05-21] MEDS ORDERED: POLYETHYLENE GLYCOL (MIRALAX) 238GM BOTTLE PO ONE (07:00)
[2020-05-21] MEDS: METOPROLOL TART 12.5 MG PER 1/2 TAB PO SCH (07:24)
[2020-05-21] MEDS ORDERED: METO1TAB87 PO (07:39)
[2020-05-21 07:53] VITALS: BP 164/81
[2020-05-21 08:00] VITALS: BP 151/79
[2020-05-21] MEDS ORDERED: SLF 3 ML SYR IV PRN (08:15)
[2020-05-21] MEDS ORDERED: METOPROLOL TART 12.5 MG PER 1/2 TAB PO SCH (09:00)
[2020-05-21 12:00] VITALS: BP 152/84
[2020-05-21] MEDS ORDERED: SLF 3 ML SYR IV SCH (14:00)
[2020-05-21] MEDS ORDERED: propofoL 200 MG/20 ML VIAL As Ordered ONE (14:22)
[2020-05-21] MEDS ORDERED: LIDOCAINE 2% 100MG/5ML SDV (FOR ANES.) As Ordered ONE (14:22)
[2020-05-21 15:51] VITALS: BP 137/69
--- NOTE | 2020-05-21 15:57 | ROOR ---
Patient Name: Ana Laura Nicholson Procedure Date: 05/21/2020 3:22 PM Date of : 1955 Age: 65 Room: [facility] Gender: Female Note Status: Finalized Procedure: Colonoscopy Indications: Hematochezia Providers: Juanito ASHTON MD Referring MD: Vijaya Good MD, Lisa Holcomb Requesting Provider: Medicines: Monitored Anesthesia Care Complications: No immediate complications. Procedure: Pre-Anesthesia Assessment: - The heart rate, respiratory rate, oxygen saturations, blood pressure, adequacy of pulmonary ventilation, and response to care were monitored throughout the procedure. The Colonoscope was introduced through the anus and advanced to 10 cm into the ileum. The colonoscopy was performed without difficulty. The patient tolerated the procedure well. The quality of the bowel preparation was good. Findings: The perianal and digital rectal examinations were normal. Internal hemorrhoids were found during retroflexion. The hemorrhoids were moderate. Multiple small and large-mouthed diverticula were found in the sigmoid colon. The exam was otherwise normal throughout the examined colon. The terminal ileum appeared normal. Impression: - Moderate Internal hemorrhoids. (1 non bleeding ulcerated hemorrhoid) - Moderate diverticulosis in the sigmoid colon. - Small lipoma splenic flexure. - The colon is otherwise normal. - The examined portion of the ileum was normal. - No specimens collected. - (Colonic/ileal fluid is clear/yellow-no further bleeding. Rectal bleeding episode was likely from the ulcerated hemorrhoid vs a minor diverticular bleed.) Recommendation: - [facility] same day. - Resume regular diet. - Resume Eliquis (apixaban) at prior dose tomorrow. - Follow up with your primary surgical endoscopist as previously scheduled. Procedure Code(s): --- Professional --- 58624, Colonoscopy, flexible; diagnostic, including collection of specimen(s) by brushing or washing, when performed (separate procedure) Diagnosis Code(s): --- Professional --- K57.30, Diverticulosis of large intestine without perforation or abscess without bleeding K92.1, Melena (includes Hematochezia) K64.8, Other hemorrhoids CPT copyright 2019 [employer]. All rights reserved. The codes documented in this report are preliminary and upon feltmaker and weigher review may be revised to meet current compliance requirements. Juanito Ashton MD Juanito ASHTON MD 05/21/2020 3:57:11 PM Electronically signed by Juanito ASHTON MD Number of Addenda: 0 Note Initiated On: 05/21/2020 3:22 PM Estimated Blood Loss: Estimated blood loss: none.
--- NOTE | 2020-05-21 16:29 | DS.PDOC ---
Discharge Summary General Date of Admission May 19, 2020 at 13:56 Date of Discharge 05/21/2020 Discharge Summary PROCEDURES PERFORMED DURING STAY: EGD 05/[address] Ashton: Moderate internal hemorrhoids, Moderate diverticulosis, Small lipoma, colon normal - no biopsies ADMITTING DIAGNOSES / DISCHARGE DIAGNOSES: Acute blood loss anemia / Symptomatic anemia - likely 2/2 lower GI bleed - likely 2/2 diverticular / internal hemorrhoids A. fib; s/p RVR HTN Pulmonary HTN Suspected KRISTEN Pre-DM2 Anxiety Obesity Recent PNA / Empyema (04/23/2020) Gastrointestinal prophylaxis DVT prophylaxis COMPLICATIONS/CHIEF COMPLAINT: Rectal Bleed HISTORY OF PRESENT ILLNESS: Patient is a 65-year-old female who presented to the emergency room after experiencing multiple bloody bowel movements since 1 AM is reported that she has had greater than 10 bowel movements containing mostly blood and some stool. Patient reports that she does not experience any abdominal pain, nausea or vomiting. Denies any urinary discomfort. Patient reports that she did experience some lightheadedness and dizziness upon arrival to emergency room, however, this has subsided after she has received IV fluid hydration. Upon ar rival to emergency room, patient was found to be in A. fib with RVR, however, she had received digoxin and was given IV fluid hydration. Upon examination she is in sinus rhythm. Patient was admitted to the hospital service for further evaluation and treatment. Gastroenterology was called on consultation. HOSPITAL COURSE: Acute blood loss anemia / Symptomatic anemia - likely 2/2 lower GI bleed - likely 2/2 diverticular / internal hemorrhoids - Patient has had bloody bowel movements before arrival; No blood BMs since admission - s/p Light headedness - s/p A. fib with RVR - Hg noted to be 12.4 on admission; has continues to remain stability - No transfusions required - c/w Protonix / Carafate - Eliquis on hold; advised to resume tomorrow - Dr. Ashton on consult; s/p EGD 05/21: Moderate internal hemorrhoids, Moderate diverticulosis, Small lipoma, colon normal - no biopsies - c/w clear liquid diet for now A. fib; s/p RVR - Upon arrival to ER patient was in A. fib with RVR; currently is now in sinus - s/p IV fluid hydration - s/p Digoxin in the ER - Adjusted dose of Metoprolol (reduced) - Will hold Eliquis; patient has been advised to resume dose tomorrow HTN - BP hypertensive this morning - Will DC IV fluids - Adjusted dose of Metoprolol Pulmonary HTN - ECHO 04/25/2020 with evidence of pulmonary HTN / elevated CVP Suspected KRISTEN - Patient has a sleep study scheduled Pre-DM2 - A1c on 01/24/2020 was 6.3 - c/w Dietary modifications Anxiety - Currently not on medications Obesity - BMI of 37.7 - Complicating medical care Recent PNA / Empyema (04/23/2020) - s/p Chest tube and antibiotic course - Has followed up with Dr. Armando for repeat imaging Gastrointestinal prophylaxis - s/p Protonix / Carafate (See above) DVT prophylaxis - c/w TEDs/Sequentials - Full anticoagulation with Eliquis on hold; will be resumed tomorrow DISCHARGE MEDICATIONS: Please see below. ALLERGIES: Please see below. PHYSICAL EXAMINATION ON DISCHARGE: Vitals (See below) General: Lying in bed, appears comfortable / no distress, AAOx3 HEENT: NC, AT CVS: +S1S2 Lungs: Fair air entry b/l, auscultation is without wheezing / rhonchi / rales Abdomen: Soft, nondistended, without any tenderness Extremities: LE are without edema, - Calf tenderness LABORATORY DATA: Please see below. ACTIVITY: [As tolerated]. DISCHARGE PLAN: Follow-up with primary care provider within the next 7 days Remain compliant with treatment plan and medications Return to the ER if you experience any problems DISPOSITION: Home DISCHARGE CONDITION: [Stable]. TIME SPENT ON DISCHARGE: 35 minutes. Vital Signs/I&Os Vital Signs Date Time Temp Pulse Resp B/P (MAP) Pulse Ox O2 Delivery O2 Flow Rate FiO2 05/21/20 15:51 97.8 93 20 137/69 (91) 100 Room Air I&O- Last 24 Hours up to 6 AM 05/21/20 05:59 Intake Total 1100 ml Output Total 800 ml Balance 300 ml Laboratory Data Labs 24H Laboratory Tests 2 05/21/20 04:08: Immature Granulocyte % (Auto) 0.4, Neutrophils (%) (Auto) 57.5, Lymphocytes (%) (Auto) 27.9, Monocytes (%) (Auto) 7.6H, Eosinophils (%) (Auto) 6.3H, Basophils (%) (Auto) 0.3, Neutrophils # (Auto) 4.0, Lymphocytes # (Auto) 1.9, Monocytes # (Auto) 0.5, Eosinophils # (Auto) 0.4, Basophils # (Auto) 0.0, Nucleated Red Blood Cells % (auto) 0.0, Anion Gap 8, Glomerular Filtration Rate > 60.0, Calcium Level 9.3, Magnesium Level 2.3 CBC/BMP Laboratory Tests 05/21/20 04:08 Discharge Medications Scheduled Metoprolol Tartrate (Metoprolol Tartrate) 25 Mg Tablet, 6.25 MG PO BID Multivitamins (Thera M Plus Tablet) 1 Each Tablet, 1 TAB PO DAILY, (Reported) Kimper-3 Acid Ethyl Esters (Kimper-3 Acid Ethyl Esters) 1 Gm Capsule, 2 GM PO DAILY, (Reported) Pantoprazole Sodium (Pantoprazole Sodium) 40 Mg Tablet.dr, 40 MG PO QHS, (Reported) Scheduled PRN Docusate Sodium (Docusate Sodium) 100 Mg Capsule, 100 MG PO BID PRN for CONSTIPATION, (Reported) Ibuprofen (Ibu-200) 200 Mg Tablet, 800 MG PO Q6H PRN for PAIN, (Reported) Allergies Coded Allergies: Penicillins (Verified Allergy, Intermediate, RASH, HIVES, 05/19/20) Sulfa (Sulfonamide Antibiotics) (Verified Allergy, Intermediate, RASH, 05/19/20) DANIEL HODGE MD May 21, 2020 16:29
== END 2020-05-21 17:52 | disposition home or self-care (01) | DRG 811 ==
LOC: M ED 10:34 → M ED INP 13:56 → M PCU 17:42
PROVIDERS: ADMIT Internal Medicine; ATTEND Internal Medicine
PROC: 0DJD8ZZ Inspection of Lower Intestinal Tract, Via Natural or Artificial Opening Endoscopic (ICD-10-PCS; principal; 2020-05-21 14:15)
DX: D62 Acute posthemorrhagic anemia (principal); K57.31 Diverticulosis of large intestine without perforation or abscess with bleeding; K64.8 Other hemorrhoids; I48.91 Unspecified atrial fibrillation; I10 Essential (primary) hypertension; I27.20 Pulmonary hypertension, unspecified; F41.9 Anxiety disorder, unspecified; E66.9 Obesity, unspecified; R73.03 Prediabetes; Z79.899 Other long term (current) drug therapy; Z88.0 Allergy status to penicillin; Z88.2 Allergy status to sulfonamides; Z79.01 Long term (current) use of anticoagulants; G47.33 Obstructive sleep apnea (adult) (pediatric); Z68.37 Body mass index [BMI] 37.0-37.9, adult

== ENCOUNTER → 2020-06-03 | Outpatient (CLI) | payer OTHER ==
[~2020-06-03] MED LIST changes: +DOCU100C16 PO; +IBUP200T45 PO; -OMEG1CAP4 PO; +OMEG1CAP85 PO; +PANT-23 PO
--- NOTE | 2020-06-03 09:30 | REPPI ---
INDICATION: J86.9 PYOTHORAX WITHOUT FISTULA COMPARISON: 05/10/2020 TECHNIQUE: PA and lateral. FINDINGS: Opacity at the left base with blunting of the costophrenic angle suggests pleural effusion and or chronic pleural reaction improved from prior examination. The bilateral aerated lung gutierrez are clear. No pneumothorax. Mediastinum and cardiac silhouette are stable and within normal limits. IMPRESSION: Decreasing opacity at the left base may represent small residual pleural effusion and/or chronic pleuroparenchymal changes. <Electronically signed by Wu Alvarez > 06/03/20 0938
== END ==
LOC: M PLAIMG 08:54
PROVIDERS: ATTEND Thoracic Surgery (Cardiothoracic Vascular Surgery)
DX: J86.9 Pyothorax without fistula (principal); J90 Pleural effusion, not elsewhere classified

== ENCOUNTER → 2020-06-23 | Outpatient (CLI) | payer OTHER ==
--- NOTE | 2020-06-28 14:51 | SLEEPHOME ---
DIAGNOSTIC HOME SLEEP STUDY DATE: 06/23/2020 ORDERED BY: Brooke Garcia MD Diagnostic home sleep testing was performed due to concern for the obstructive sleep apnea syndrome in this patient with a history of snoring and mood disorder. For testing, a nocturnal T3 respiratory monitoring device was used. Continuous record was made of pulse, oxygen saturation, air flow, chest and abdominal strain, and body position. 9 hours and 50 minutes of data were reviewed. There were 4 hours and 6 minutes marked as time in bed. During the interval marked time in bed, there were 75 respiratory events identified of 10 seconds in duration or greater for a respiratory event index 18.3. The events were primarily obstructive. Baseline pulse rate 75. Pulse rate range 64 to 92. Baseline saturation was 90%. Saturations fell to 79%. Testing was performed in both the supine and non-supine positions. IMPRESSION: Abnormal home sleep testing, with repetitive respiratory events and oxygen desaturations to 79% with a respiratory event index of 18.3, is consistent with the obstructive sleep apnea syndrome. RECOMMENDATION: The patient should be encouraged to undergo a formal sleep evaluation.
== END ==
LOC: M SLEEP HO 11:15
PROVIDERS: ATTEND Internal Medicine Pulmonary Disease
DX: G47.30 Sleep apnea, unspecified (principal)

== ENCOUNTER → 2020-06-25 | Outpatient (REF) | payer OTHER ==
[2020-06-25 12:07] LABS: BLOOD UREA NITROGEN 19 MG/DL (7-18); CALCIUM LEVEL 9.8 MG/DL (8.8-10.2); CARBON DIOXIDE LEVEL 31 MEQ/L (21-32); CHLORIDE LEVEL 104 MEQ/L (98-107); CREATININE FOR GFR 0.82 MG/DL (0.55-1.30); GLOMERULAR FILTRATION RATE > 60.0 (>45); GLUCOSE, FASTING 135 MG/DL (70-100); SODIUM LEVEL 141 MEQ/L (136-145)
== END ==
LOC: M SFHCPLAZ 08:13
PROVIDERS: ATTEND Family Medicine
DX: I10 Essential (primary) hypertension (principal)

== ENCOUNTER → 2020-08-10 | Outpatient (CLI) | payer OTHER ==
--- NOTE | 2020-08-11 08:11 | REP ---
INDICATION: PYOTHORAX W/O FISTULA COMPARISON: 04/27/2020 TECHNIQUE: Axial noncontrast images from the thoracic inlet to the upper abdomen with coronal and sagittal reformations. This CT examination was performed using the following dose reduction techniques: Automated exposure control, adjustment of mA and/or kv according to the patient's size, and use of iterative reconstruction technique. FINDINGS: Previously noted left-sided consolidation and pyothorax have essentially resolved. Current examination demonstrates minimal residual chronic pleuroparenchymal scarring at the base. There is a 2.5 cm part solid nodular opacity in the left upper lobe (series 201 images 40-44) and small adjacent 3 mm noncalcified nodule (series 201; image 43). While these findings may represent chronic sequelae from prior infectious/inflammatory process, active disease cannot be excluded. No further acute consolidation, significant nodule or mass. No effusion. No pneumothorax. Tracheobronchial tree is patent. No significant obvious adenopathy identified. Further evaluation of the mediastinum demonstrates stable advanced atherosclerotic changes to the thoracic aorta and coronary arteries. No cardiomegaly or pericardial effusion. Surrounding musculoskeletal structures are intact. IMPRESSION: 1. Previously noted pyothorax has essentially resolved with very minimal residual scarring at the left base. 2. 2.5 cm part solid nodular opacity in the left upper lobe and small adjacent 3 mm noncalcified nodule identified on current examination. Consider 6 month follow-up examination to evaluate for resolution and/or stability. <Electronically signed by Wu Alvarez > 08/11/20 [id number]
== END ==
LOC: M RAD 18:13
PROVIDERS: ATTEND Internal Medicine Pulmonary Disease
DX: R91.8 Other nonspecific abnormal finding of lung field (principal); J86.9 Pyothorax without fistula

== ENCOUNTER → 2020-09-24 | Outpatient (REF) | LOC: M LABSMTC 12:15 | PROVIDERS: ATTEND Family Medicine | DX: Z20.828 Contact with and (suspected) exposure to other viral communicable diseases (principal); Z11.59 Encounter for screening for other viral diseases ==

== ENCOUNTER → 2021-01-03 | Outpatient (REF) ==
[~2021-01-03] MED LIST changes: +DOK1CAP4 PO; -DOK1CAP7 PO
== END ==
LOC: M EMP 12:38
PROVIDERS: ATTEND Family Medicine
DX: Z20.822 Contact with and (suspected) exposure to COVID-19 (principal)

== ENCOUNTER → 2021-02-22 | Outpatient (CLI) | payer BC ==
[~2021-02-22] MED LIST changes: -IBUP200T45 PO; +IBUP200T46 PO
--- NOTE | 2021-02-22 19:37 | REP ---
INDICATION: PYOTHORAX WITHOUT FISTULA. COMPARISON: 08/10/2020, 04/27/2020. TECHNIQUE: Noncontrast scanning through the chest with coronal and sagittal reconstructions provided. FINDINGS: Lungs are well inflated. Some residual scarring in the inferior another on image 42 in the left lower lobe also stable. No new or acute infiltrate, new nodules masses. There is no calcified pleural plaque, pleural effusion, pneumothorax or pneumomediastinum. No pathologic sized mediastinal, hilar, axillary or supraclavicular adenopathy. Prominence of central pulmonary arteries in the mediastinum consistent with pulmonary artery hypertension, secondary to COPD. Mild cylindrical bronchiectatic change again noted. Calcified coronary arteries and calcifications of the aortic arch and descending aorta. The ascending aorta has maximum diameter of 4.3 cm, unchanged. No acute bony abnormalities, appearance stable with some degenerative change but no fracture or destructive lesion. The upper abdomen shows that portion of liver, spleen and adrenal glands to be unremarkable and unchanged gallbladder shows no calcified stone but is partially contracted. Pancreas included was unremarkable no definite hiatal hernia. Parapelvic cyst right kidney unchanged. Upper pole left kidney unchanged. Visualized spleen intact. IMPRESSION: 1. Clearing of the 2.5 cm nodular infiltrate seen left upper lobe on previous study with no residual findings there. 2. Two small 3 mm nodules in the lower lobes, 1 on each side, unchanged. 3. Underlying COPD, pulmonary artery hypertension and cylindrical bronchiectasis, stable. No new or acute finding. <Electronically signed by Jared Ramirez > 02/22/211932
== END ==
LOC: M RAD 17:23
PROVIDERS: ATTEND Internal Medicine Pulmonary Disease
DX: J86.9 Pyothorax without fistula (principal); R91.8 Other nonspecific abnormal finding of lung field; J44.9 Chronic obstructive pulmonary disease, unspecified

== ENCOUNTER 2021-03-27 13:28 | Inpatient (IN) | payer BC, OTHER ==
[~2021-03-27] VITALS: Ht 170.2 cm; Wt 102.3 kg
[2021-03-27] MEDS: NICOTINE 21MG/24HR 1 EA TRANSDERMAL TD SCH (09:00)
[2021-03-27] MEDS ORDERED: FELO10TA28 PO (14:00)
[2021-03-27] MEDS ORDERED: ATOR40TA75 PO (14:00)
[2021-03-27] MEDS ORDERED: FISH1000 PO (14:00)
[2021-03-27] MEDS ORDERED: ELIQ5TAB PO (14:00)
[2021-03-27] MEDS ORDERED: METO25TA4 PO (14:00)
[2021-03-27 14:15] LABS: BASO % 0.3 % (0.0-1.0); EOS # 0.1 10^3/uL (0.0-0.5); HEMATOCRIT 50.8 % (36.0-47.0); HEMOGLOBIN 16.8 g/dl (12.0-15.5); LYMPH # 2.7 10^3/uL (1.5-5.0); LYMPH % 25.3 % (24.0-44.0); MEAN CORPUSCULAR HEMOGLOBIN 28.3 pg (27.0-33.0); MEAN CORPUSCULAR HGB CONC 33.1 g/dl (32.0-36.5); MEAN CORPUSCULAR VOLUME 85.5 fl (80.0-96.0); MONO # 0.6 10^3/uL (0.0-0.8); MONO % 5.6 % (2.0-8.0); NEUTROPHILS # 7.2 10^3/uL (1.5-8.5); NEUTROPHILS % 67.4 % (36.0-66.0); PLATELET COUNT, AUTOMATED 344 10^3/uL (150-450); RED BLOOD COUNT 5.94 10^6/uL (4.00-5.40); WHITE BLOOD COUNT 10.7 10^3/uL (4.0-10.0)
[2021-03-27 14:22] VITALS: BP 162/99
[2021-03-27 14:26] LABS: INR 0.97; PARTIAL THROMBOPLASTIN TIME 30.2 SECONDS (25.9-37.0); PROTHROMBIN TIME 13.3 SECONDS (12.7-14.5)
[2021-03-27 14:36] LABS: BLOOD UREA NITROGEN 16 MG/DL (7-18); CARBON DIOXIDE LEVEL 30 MEQ/L (21-32); CHLORIDE LEVEL 100 MEQ/L (98-107); CREATININE FOR GFR 0.76 MG/DL (0.55-1.30); GLOMERULAR FILTRATION RATE > 60.0 (>45); GLUCOSE, FASTING 133 MG/DL (70-100); POTASSIUM SERUM 3.6 MEQ/L (3.5-5.1); SODIUM LEVEL 139 MEQ/L (136-145)
[2021-03-27 14:40] LABS: CK-MB VALUE MASS 2.1 NG/ML (<3.6); MB/CK RELATIVE INDEX 3.09 (< OR =4)
[2021-03-27 14:45] VITALS: BP 161/87
[2021-03-27 15:01] VITALS: BP 145/83
[2021-03-27] MEDS ORDERED: VALS320T3 PO (15:54)
[2021-03-27 15:55] LABS: BASO % 0.3 % (0.0-1.0); EOS # 0.1 10^3/uL (0.0-0.5); EOS % 0.9 % (0.0-3.0); HEMATOCRIT 46.7 % (36.0-47.0); HEMOGLOBIN 15.4 g/dl (12.0-15.5); LYMPH # 2.8 10^3/uL (1.5-5.0); LYMPH % 23.9 % (24.0-44.0); MEAN CORPUSCULAR HEMOGLOBIN 28.5 pg (27.0-33.0); MEAN CORPUSCULAR VOLUME 86.5 fl (80.0-96.0); MONO # 0.7 10^3/uL (0.0-0.8); MONO % 6.3 % (2.0-8.0); NEUTROPHILS # 7.9 10^3/uL (1.5-8.5); NEUTROPHILS % 68.3 % (36.0-66.0); PLATELET COUNT, AUTOMATED 298 10^3/uL (150-450); WHITE BLOOD COUNT 11.6 10^3/uL (4.0-10.0)
[2021-03-27] MEDS ORDERED: HOME MED LIST COMPLETE! XX SCH (16:00)
[2021-03-27 16:08] LABS: PROTHROMBIN TIME 13.6 SECONDS (12.7-14.5)
[2021-03-27 16:09] LABS: PARTIAL THROMBOPLASTIN TIME 28.7 SECONDS (25.9-37.0)
[2021-03-27 16:17] LABS: BLOOD UREA NITROGEN 15 MG/DL (7-18); CALCIUM LEVEL 9.4 MG/DL (8.8-10.2); CARBON DIOXIDE LEVEL 27 MEQ/L (21-32); CHLORIDE LEVEL 103 MEQ/L (98-107); CREATININE FOR GFR 0.61 MG/DL (0.55-1.30); GLOMERULAR FILTRATION RATE > 60.0 (>45); GLUCOSE, FASTING 122 MG/DL (70-100); POTASSIUM SERUM 3.8 MEQ/L (3.5-5.1); SODIUM LEVEL 138 MEQ/L (136-145)
[2021-03-27 16:19] LABS: CHOLESTEROL RISK RATIO 2.934 (<5)
[2021-03-27 16:27] LABS: RSV AMPLIFICATION NEGATIVE (NEGATIVE)
[2021-03-27 17:06] LABS: CK-MB VALUE MASS 1.9 NG/ML (<3.6); MB/CK RELATIVE INDEX 3.11 (< OR =4)
[2021-03-27] MEDS ORDERED: ISOVUE-370 76% 100ML VIAL As Ordered ONE (17:23)
[2021-03-27 17:54] VITALS: BP 142/82
[2021-03-27 20:00] VITALS: BP 122/66
[2021-03-27] MEDS: ATORVASTATIN 20 MG TAB PO SCH (20:06)
[2021-03-27] MEDS: APIXABAN 5 MG TAB (ELIQUIS) PO SCH (20:06)
[2021-03-27] MEDS ORDERED: METOPROLOL TART 12.5 MG PER 1/2 TAB PO SCH (21:00)
[2021-03-28] VITALS (7 sets, daily range): BP systolic 119–152; BP diastolic 60–87
[2021-03-28 05:42] LABS: HEMATOCRIT 44.6 % (36.0-47.0); HEMOGLOBIN 14.6 g/dl (12.0-15.5); MEAN CORPUSCULAR HEMOGLOBIN 28.2 pg (27.0-33.0); MEAN CORPUSCULAR HGB CONC 32.7 g/dl (32.0-36.5); MEAN CORPUSCULAR VOLUME 86.1 fl (80.0-96.0); PLATELET COUNT, AUTOMATED 309 10^3/uL (150-450); RED BLOOD COUNT 5.18 10^6/uL (4.00-5.40); WHITE BLOOD COUNT 9.3 10^3/uL (4.0-10.0)
[2021-03-28 07:28] LABS: ALT/SGPT 27 U/L (12-78); BILIRUBIN,TOTAL 0.6 MG/DL (0.2-1.0); BLOOD UREA NITROGEN 16 MG/DL (7-18); CALCIUM LEVEL 9.5 MG/DL (8.8-10.2); CARBON DIOXIDE LEVEL 28 MEQ/L (21-32); CHLORIDE LEVEL 104 MEQ/L (98-107); CREATININE FOR GFR 0.65 MG/DL (0.55-1.30); GLOMERULAR FILTRATION RATE > 60.0 (>45); GLUCOSE, FASTING 126 MG/DL (70-100); POTASSIUM SERUM 3.6 MEQ/L (3.5-5.1); SODIUM LEVEL 139 MEQ/L (136-145); TOTAL PROTEIN 6.7 GM/DL (6.4-8.2)
[2021-03-28] MEDS: NICOTINE 21MG/24HR 1 EA TRANSDERMAL TD SCH (09:00)
[2021-03-28] MEDS: APIXABAN 5 MG TAB (ELIQUIS) PO SCH ×2 (10:39→20:27)
[2021-03-28] MEDS: ATORVASTATIN 20 MG TAB PO SCH (20:27)
[2021-03-28] MEDS: ACETAMINOPHEN TAB 650MG DOSE (2X325MG) PO PRN (20:27)
[2021-03-29 04:00] VITALS: BP 130/61
[2021-03-29 05:49] LABS: HEMATOCRIT 44.6 % (36.0-47.0); HEMOGLOBIN 14.7 g/dl (12.0-15.5); MEAN CORPUSCULAR HEMOGLOBIN 28.2 pg (27.0-33.0); MEAN CORPUSCULAR VOLUME 85.4 fl (80.0-96.0); PLATELET COUNT, AUTOMATED 302 10^3/uL (150-450); RED BLOOD COUNT 5.22 10^6/uL (4.00-5.40); WHITE BLOOD COUNT 8.7 10^3/uL (4.0-10.0)
[2021-03-29 06:14] LABS: ALBUMIN 3.1 GM/DL (3.2-5.2); ALT/SGPT 24 U/L (12-78); BILIRUBIN,TOTAL 0.5 MG/DL (0.2-1.0); BLOOD UREA NITROGEN 15 MG/DL (7-18); CALCIUM LEVEL 8.8 MG/DL (8.8-10.2); CARBON DIOXIDE LEVEL 28 MEQ/L (21-32); CHLORIDE LEVEL 106 MEQ/L (98-107); CREATININE FOR GFR 0.66 MG/DL (0.55-1.30); GLOMERULAR FILTRATION RATE > 60.0 (>45); GLUCOSE, FASTING 138 MG/DL (70-100); POTASSIUM SERUM 3.5 MEQ/L (3.5-5.1); SODIUM LEVEL 140 MEQ/L (136-145); TOTAL PROTEIN 6.8 GM/DL (6.4-8.2)
[2021-03-29 08:00] VITALS: BP 143/86
[2021-03-29] MEDS: NICOTINE 21MG/24HR 1 EA TRANSDERMAL TD SCH (09:00)
[2021-03-29] MEDS: APIXABAN 5 MG TAB (ELIQUIS) PO SCH ×2 (09:47→20:28)
[2021-03-29 12:00] VITALS: BP 150/84
[2021-03-29] MEDS: ACETAMINOPHEN TAB 650MG DOSE (2X325MG) PO PRN ×2 (14:57→20:29)
[2021-03-29 19:00] VITALS: BP 150/75
[2021-03-29] MEDS: ATORVASTATIN 20 MG TAB PO SCH (20:28)
[2021-03-29] MEDS: METOPROLOL TART 12.5 MG PER 1/2 TAB PO SCH (20:29)
[2021-03-29 22:00] VITALS: BP 150/90
[2021-03-30 06:00] VITALS: BP 143/88
[2021-03-30 06:50] LABS: HEMATOCRIT 44.4 % (36.0-47.0); HEMOGLOBIN 14.6 g/dl (12.0-15.5); MEAN CORPUSCULAR HEMOGLOBIN 28.2 pg (27.0-33.0); MEAN CORPUSCULAR HGB CONC 32.9 g/dl (32.0-36.5); MEAN CORPUSCULAR VOLUME 85.9 fl (80.0-96.0); PLATELET COUNT, AUTOMATED 293 10^3/uL (150-450); RED BLOOD COUNT 5.17 10^6/uL (4.00-5.40); WHITE BLOOD COUNT 7.9 10^3/uL (4.0-10.0)
[2021-03-30 07:13] LABS: ALBUMIN 3.2 GM/DL (3.2-5.2); ALT/SGPT 28 U/L (12-78); BILIRUBIN,TOTAL 0.6 MG/DL (0.2-1.0); BLOOD UREA NITROGEN 13 MG/DL (7-18); CALCIUM LEVEL 9.3 MG/DL (8.8-10.2); CARBON DIOXIDE LEVEL 29 MEQ/L (21-32); CHLORIDE LEVEL 105 MEQ/L (98-107); GLOMERULAR FILTRATION RATE > 60.0 (>45); GLUCOSE, FASTING 130 MG/DL (70-100); POTASSIUM SERUM 3.6 MEQ/L (3.5-5.1); SODIUM LEVEL 140 MEQ/L (136-145); TOTAL PROTEIN 6.7 GM/DL (6.4-8.2)
[2021-03-30] MEDS: NICOTINE 21MG/24HR 1 EA TRANSDERMAL TD SCH (09:00)
[2021-03-30] MEDS: ASPIRIN 81MG ENTERIC TABLET PO SCH (09:55)
[2021-03-30] MEDS: APIXABAN 5 MG TAB (ELIQUIS) PO SCH ×2 (09:56→20:25)
[2021-03-30] MEDS: METOPROLOL TART 12.5 MG PER 1/2 TAB PO SCH ×2 (09:59→20:25)
[2021-03-30] MEDS: ACETAMINOPHEN TAB 650MG DOSE (2X325MG) PO PRN ×2 (12:29→18:52)
[2021-03-30 14:00] VITALS: BP 147/84
[2021-03-30] MEDS: ATORVASTATIN 20 MG TAB PO SCH (20:25)
[2021-03-30 22:00] VITALS: BP 136/94
[2021-03-31 06:00] VITALS: BP 136/91
[2021-03-31] MEDS: NICOTINE 21MG/24HR 1 EA TRANSDERMAL TD SCH (09:00)
[2021-03-31] MEDS: ASPIRIN 81MG ENTERIC TABLET PO SCH (09:33)
[2021-03-31] MEDS: APIXABAN 5 MG TAB (ELIQUIS) PO SCH ×2 (09:35→20:36)
[2021-03-31] MEDS: METOPROLOL TART 12.5 MG PER 1/2 TAB PO SCH ×2 (09:35→20:38)
[2021-03-31 14:00] VITALS: BP 142/88
[2021-03-31] MEDS: ATORVASTATIN 20 MG TAB PO SCH (20:37)
[2021-03-31 22:00] VITALS: BP 152/97
[2021-04-01 06:57] VITALS: BP 156/93
[2021-04-01] MEDS: NICOTINE 21MG/24HR 1 EA TRANSDERMAL TD SCH (08:00)
[2021-04-01] MEDS: ASPIRIN 81MG ENTERIC TABLET PO SCH (09:08)
[2021-04-01] MEDS: APIXABAN 5 MG TAB (ELIQUIS) PO SCH ×2 (09:08→21:13)
[2021-04-01] MEDS: METOPROLOL TART 12.5 MG PER 1/2 TAB PO SCH ×2 (09:08→21:13)
[2021-04-01] MEDS: ACETAMINOPHEN TAB 650MG DOSE (2X325MG) PO PRN (11:56)
[2021-04-01 14:00] VITALS: BP 156/88
[2021-04-01] MEDS: ATORVASTATIN 20 MG TAB PO SCH (21:13)
[2021-04-01 22:00] VITALS: BP 136/77
[2021-04-02 06:00] VITALS: BP 142/84
[2021-04-02] MEDS: NICOTINE 21MG/24HR 1 EA TRANSDERMAL TD SCH (08:29)
[2021-04-02] MEDS: ASPIRIN 81MG ENTERIC TABLET PO SCH (08:30)
[2021-04-02] MEDS: APIXABAN 5 MG TAB (ELIQUIS) PO SCH ×2 (08:30→20:17)
[2021-04-02] MEDS: METOPROLOL TART 12.5 MG PER 1/2 TAB PO SCH ×2 (08:31→20:17)
[2021-04-02 14:00] VITALS: BP 137/81
[2021-04-02] MEDS: ATORVASTATIN 20 MG TAB PO SCH (20:17)
[2021-04-02 22:00] VITALS: BP 168/92
[2021-04-03 06:00] VITALS: BP 147/85
[2021-04-03] MEDS: APIXABAN 5 MG TAB (ELIQUIS) PO SCH ×2 (07:43→21:04)
[2021-04-03] MEDS: NICOTINE 21MG/24HR 1 EA TRANSDERMAL TD SCH (07:43)
[2021-04-03] MEDS: ASPIRIN 81MG ENTERIC TABLET PO SCH (07:43)
[2021-04-03] MEDS: METOPROLOL TART 12.5 MG PER 1/2 TAB PO SCH ×2 (07:44→21:04)
[2021-04-03 14:18] VITALS: BP 130/74
[2021-04-03 20:00] VITALS: BP 165/94
[2021-04-03] MEDS ORDERED: **hydrALAZINE HCL** 25 MG TAB PO ONE (20:20)
[2021-04-03] MEDS: ATORVASTATIN 20 MG TAB PO SCH (21:05)
[2021-04-04 06:00] VITALS: BP 104/71
[2021-04-04] MEDS: ASPIRIN 81MG ENTERIC TABLET PO SCH (08:47)
[2021-04-04] MEDS: APIXABAN 5 MG TAB (ELIQUIS) PO SCH ×2 (08:47→21:57)
[2021-04-04] MEDS: NICOTINE 21MG/24HR 1 EA TRANSDERMAL TD SCH (08:50)
[2021-04-04] MEDS: METOPROLOL TART 12.5 MG PER 1/2 TAB PO SCH ×2 (08:53→21:58)
[2021-04-04] MEDS: SENOKOT S TAB PO SCH ×2 (09:59→21:00)
[2021-04-04 14:00] VITALS: BP 157/88
[2021-04-04] MEDS: ATORVASTATIN 20 MG TAB PO SCH (21:57)
[2021-04-04 22:00] VITALS: BP 135/78
[2021-04-05 06:00] VITALS: BP 141/76
[2021-04-05] MEDS: NICOTINE 21MG/24HR 1 EA TRANSDERMAL TD SCH (09:00)
[2021-04-05] MEDS: SENOKOT S TAB PO SCH ×2 (09:17→21:00)
[2021-04-05] MEDS: APIXABAN 5 MG TAB (ELIQUIS) PO SCH ×2 (09:17→21:45)
[2021-04-05] MEDS: ASPIRIN 81MG ENTERIC TABLET PO SCH (09:17)
[2021-04-05] MEDS: METOPROLOL TART 12.5 MG PER 1/2 TAB PO SCH ×2 (09:24→21:46)
[2021-04-05] MEDS: amLODIPine 5 MG TAB PO SCH (10:46)
[2021-04-05 14:00] VITALS: BP 156/73
[2021-04-05] MEDS: ATORVASTATIN 20 MG TAB PO SCH (21:46)
[2021-04-05 22:00] VITALS: BP 163/81
[2021-04-06 06:06] VITALS: BP 153/76
[2021-04-06] MEDS: NICOTINE 21MG/24HR 1 EA TRANSDERMAL TD SCH (09:00)
[2021-04-06] MEDS: SENOKOT S TAB PO SCH ×2 (09:00→20:03)
[2021-04-06] MEDS: ASPIRIN 81MG ENTERIC TABLET PO SCH (09:18)
[2021-04-06] MEDS: amLODIPine 5 MG TAB PO SCH (09:18)
[2021-04-06] MEDS: APIXABAN 5 MG TAB (ELIQUIS) PO SCH ×2 (09:19→20:03)
[2021-04-06] MEDS: METOPROLOL TART 12.5 MG PER 1/2 TAB PO SCH ×2 (09:19→20:03)
[2021-04-06 09:37] LABS: BASO % 0.3 % (0.0-1.0); EOS # 0.1 10^3/uL (0.0-0.5); EOS % 1.8 % (0.0-3.0); HEMATOCRIT 40.5 % (36.0-47.0); HEMOGLOBIN 13.3 g/dl (12.0-15.5); LYMPH # 1.7 10^3/uL (1.5-5.0); LYMPH % 24.5 % (24.0-44.0); MEAN CORPUSCULAR HEMOGLOBIN 28.5 pg (27.0-33.0); MEAN CORPUSCULAR HGB CONC 32.8 g/dl (32.0-36.5); MEAN CORPUSCULAR VOLUME 86.7 fl (80.0-96.0); MONO # 0.4 10^3/uL (0.0-0.8); MONO % 6.1 % (2.0-8.0); NEUTROPHILS # 4.7 10^3/uL (1.5-8.5); NEUTROPHILS % 66.9 % (36.0-66.0); PLATELET COUNT, AUTOMATED 250 10^3/uL (150-450); RED BLOOD COUNT 4.67 10^6/uL (4.00-5.40); WHITE BLOOD COUNT 7.1 10^3/uL (4.0-10.0)
[2021-04-06 10:01] LABS: BLOOD UREA NITROGEN 12 MG/DL (7-18); CALCIUM LEVEL 8.8 MG/DL (8.8-10.2); CARBON DIOXIDE LEVEL 29 MEQ/L (21-32); CHLORIDE LEVEL 108 MEQ/L (98-107); CREATININE FOR GFR 0.69 MG/DL (0.55-1.30); GLOMERULAR FILTRATION RATE > 60.0 (>45); GLUCOSE, FASTING 201 MG/DL (70-100); MAGNESIUM LEVEL 2.1 MG/DL (1.8-2.4); POTASSIUM SERUM 3.5 MEQ/L (3.5-5.1); SODIUM LEVEL 143 MEQ/L (136-145)
[2021-04-06] MEDS: ATORVASTATIN 20 MG TAB PO SCH (20:02)
[2021-04-06] MEDS: ACETAMINOPHEN TAB 650MG DOSE (2X325MG) PO PRN (20:02)
[2021-04-07 06:00] VITALS: BP 145/93
[2021-04-07] MEDS: NICOTINE 21MG/24HR 1 EA TRANSDERMAL TD SCH (09:00)
[2021-04-07] MEDS: SENOKOT S TAB PO SCH ×2 (09:00→21:00)
[2021-04-07] MEDS: METOPROLOL TART 12.5 MG PER 1/2 TAB PO SCH ×2 (10:06→21:14)
[2021-04-07] MEDS: ASPIRIN 81MG ENTERIC TABLET PO SCH (10:07)
[2021-04-07] MEDS: APIXABAN 5 MG TAB (ELIQUIS) PO SCH ×2 (10:07→21:13)
[2021-04-07] MEDS: amLODIPine 5 MG TAB PO SCH (10:07)
[2021-04-07] MEDS: ATORVASTATIN 20 MG TAB PO SCH (21:13)
[2021-04-07] MEDS: ACETAMINOPHEN TAB 650MG DOSE (2X325MG) PO PRN (21:13)
[2021-04-08 06:00] VITALS: BP 151/86
[2021-04-08] MEDS: NICOTINE 21MG/24HR 1 EA TRANSDERMAL TD SCH (09:00)
[2021-04-08] MEDS: SENOKOT S TAB PO SCH ×2 (09:00→20:26)
[2021-04-08] MEDS: APIXABAN 5 MG TAB (ELIQUIS) PO SCH ×2 (09:27→20:25)
[2021-04-08] MEDS: amLODIPine 5 MG TAB PO SCH (09:28)
[2021-04-08] MEDS: ASPIRIN 81MG ENTERIC TABLET PO SCH (09:28)
[2021-04-08] MEDS: METOPROLOL TART 12.5 MG PER 1/2 TAB PO SCH ×2 (09:28→20:25)
[2021-04-08] MEDS: ATORVASTATIN 20 MG TAB PO SCH (20:25)
[2021-04-09 06:00] VITALS: BP 146/93
[2021-04-09] MEDS: NICOTINE 21MG/24HR 1 EA TRANSDERMAL TD SCH (09:00)
[2021-04-09] MEDS: SENOKOT S TAB PO SCH ×2 (09:00→23:06)
[2021-04-09] MEDS: APIXABAN 5 MG TAB (ELIQUIS) PO SCH ×2 (09:36→23:06)
[2021-04-09] MEDS: ASPIRIN 81MG ENTERIC TABLET PO SCH (09:36)
[2021-04-09] MEDS: amLODIPine 5 MG TAB PO SCH (09:37)
[2021-04-09] MEDS: METOPROLOL TART 12.5 MG PER 1/2 TAB PO SCH ×2 (09:37→23:09)
[2021-04-09] MEDS: ATORVASTATIN 20 MG TAB PO SCH (23:06)
[2021-04-10 06:00] VITALS: BP 124/73
[2021-04-10] MEDS: SENOKOT S TAB PO SCH (09:00)
[2021-04-10] MEDS: NICOTINE 21MG/24HR 1 EA TRANSDERMAL TD SCH (09:00)
[2021-04-10] MEDS: ASPIRIN 81MG ENTERIC TABLET PO SCH (09:54)
[2021-04-10] MEDS: APIXABAN 5 MG TAB (ELIQUIS) PO SCH ×2 (09:54→20:25)
[2021-04-10] MEDS: amLODIPine 5 MG TAB PO SCH (09:56)
[2021-04-10] MEDS: METOPROLOL TART 12.5 MG PER 1/2 TAB PO SCH ×2 (09:56→20:26)
[2021-04-10] MEDS ORDERED: SENOKOT S TAB PO PRN (15:15)
[2021-04-10] MEDS: ATORVASTATIN 20 MG TAB PO SCH (20:25)
[2021-04-11 06:00] VITALS: BP 116/87
[2021-04-11] MEDS: APIXABAN 5 MG TAB (ELIQUIS) PO SCH ×2 (08:23→20:34)
[2021-04-11] MEDS: ASPIRIN 81MG ENTERIC TABLET PO SCH (08:25)
[2021-04-11] MEDS: amLODIPine 5 MG TAB PO SCH (08:25)
[2021-04-11] MEDS: METOPROLOL TART 12.5 MG PER 1/2 TAB PO SCH ×2 (08:26→20:33)
[2021-04-11] MEDS: ATORVASTATIN 20 MG TAB PO SCH (20:34)
[2021-04-12 06:00] VITALS: BP 136/75
[2021-04-12] MEDS: ASPIRIN 81MG ENTERIC TABLET PO SCH (09:28)
[2021-04-12] MEDS: amLODIPine 5 MG TAB PO SCH (09:29)
[2021-04-12] MEDS: METOPROLOL TART 12.5 MG PER 1/2 TAB PO SCH ×2 (09:29→20:26)
[2021-04-12] MEDS: APIXABAN 5 MG TAB (ELIQUIS) PO SCH ×2 (09:30→20:25)
[2021-04-12] MEDS: ATORVASTATIN 20 MG TAB PO SCH (20:25)
[2021-04-12] MEDS: ACETAMINOPHEN TAB 650MG DOSE (2X325MG) PO PRN (20:25)
[2021-04-13 06:00] VITALS: BP 154/89
[2021-04-13] MEDS: ASPIRIN 81MG ENTERIC TABLET PO SCH (10:11)
[2021-04-13] MEDS: METOPROLOL TART 12.5 MG PER 1/2 TAB PO SCH ×2 (10:14→22:00)
[2021-04-13] MEDS: amLODIPine 5 MG TAB PO SCH (10:14)
[2021-04-13] MEDS: APIXABAN 5 MG TAB (ELIQUIS) PO SCH ×2 (10:14→22:00)
[2021-04-13] MEDS: ATORVASTATIN 20 MG TAB PO SCH (22:01)
[2021-04-13] MEDS: ACETAMINOPHEN TAB 650MG DOSE (2X325MG) PO PRN (22:01)
[2021-04-14 06:00] VITALS: BP 141/78
[2021-04-14 10:03] VITALS: BP 166/96
[2021-04-14] MEDS: amLODIPine 5 MG TAB PO SCH (10:03)
[2021-04-14] MEDS: ASPIRIN 81MG ENTERIC TABLET PO SCH (10:03)
[2021-04-14] MEDS: METOPROLOL TART 12.5 MG PER 1/2 TAB PO SCH (10:04)
[2021-04-14] MEDS: APIXABAN 5 MG TAB (ELIQUIS) PO SCH (10:04)
[2021-04-14] MEDS ORDERED: SENN-52 PO (10:32)
[2021-04-14] MEDS ORDERED: ASPI-551 PO (10:32)
== END 2021-04-14 10:45 | DRG 45 ==
LOC: M ED 13:28 → M ED INP 14:56 → ENRESERV 16:19 → M PCU 17:43 → M MSPAV 03-29 18:59
PROVIDERS: ADMIT Internal Medicine; ATTEND Internal Medicine
DX: I63.9 Cerebral infarction, unspecified (principal); I27.20 Pulmonary hypertension, unspecified; I48.0 Paroxysmal atrial fibrillation; I10 Essential (primary) hypertension; G47.33 Obstructive sleep apnea (adult) (pediatric); E11.9 Type 2 diabetes mellitus without complications; K21.9 Gastro-esophageal reflux disease without esophagitis; F41.9 Anxiety disorder, unspecified; Z90.49 Acquired absence of other specified parts of digestive tract; F17.210 Nicotine dependence, cigarettes, uncomplicated; R47.81 Slurred speech; E78.5 Hyperlipidemia, unspecified; Z79.899 Other long term (current) drug therapy; Z79.01 Long term (current) use of anticoagulants; Z88.0 Allergy status to penicillin; Z88.2 Allergy status to sulfonamides; Z20.822 Contact with and (suspected) exposure to COVID-19; H53.2 Diplopia; I65.1 Occlusion and stenosis of basilar artery; I65.03 Occlusion and stenosis of bilateral vertebral arteries

== ENCOUNTER → 2021-04-20 | Outpatient (REF) ==
[~2021-04-20] MED LIST changes: +ASPI-551 PO; +ATOR40TA75 PO; +FISH1000 PO; +METO25TA4 PO; +SENN-52 PO
== END ==
LOC: SKLAB3 06:56
PROVIDERS: ATTEND Internal Medicine
DX: Z20.822 Contact with and (suspected) exposure to COVID-19 (principal)

== ENCOUNTER → 2021-04-27 | Outpatient (REF) | LOC: SKLAB3 08:56 | PROVIDERS: ATTEND Internal Medicine | DX: Z20.822 Contact with and (suspected) exposure to COVID-19 (principal) ==

== ENCOUNTER 2021-08-18 09:23 | Outpatient (RCR) | payer BC | END 2021-08-20 | LOC: M ST 09:23 → M PT 09:23 | PROVIDERS: ATTEND Psychiatry & Neurology Neurology | DX: Z51.89 Encounter for other specified aftercare (principal); I63.9 Cerebral infarction, unspecified ==

== ENCOUNTER → 2021-09-20 | Outpatient (RCR) | payer BC | LOC: M PT 08-23 10:32 → M ST 08-23 10:33 → M PT 08-30 08:14 | PROVIDERS: ATTEND Family Medicine | DX: Z51.89 Encounter for other specified aftercare (principal); I63.9 Cerebral infarction, unspecified ==

== ENCOUNTER 2021-10-18 08:30 | Outpatient (RCR) | payer BC | END 2021-10-20 | LOC: M PT 08:30 | PROVIDERS: ATTEND Family Medicine | DX: Z51.89 Encounter for other specified aftercare (principal); I63.9 Cerebral infarction, unspecified ==

== ENCOUNTER → 2022-03-08 | Outpatient (CLI) | payer BC | LOC: M RAD 06:34 | PROVIDERS: ATTEND Internal Medicine Critical Care Medicine | DX: Z12.2 Encounter for screening for malignant neoplasm of respiratory organs (principal); F17.218 Nicotine dependence, cigarettes, with other nicotine-induced disorders ==

== ENCOUNTER → 2022-04-10 | Outpatient (REF) | payer BC ==
[2022-04-10 18:00] LABS: APPEARANCE, URINE MANUAL CLEAR (CLEAR); COLOR, URINE MANUAL YELLOW (YELLOW)
[2022-04-10 18:01] LABS: BILIRUBIN, URINE MANUAL NEGATIVE (NEGATIVE); BLOOD URINE MANUAL TRACE (NEGATIVE); GLUCOSE, URINE (UA) MANUAL 4+(1000 MG/DL) mg/dL (NEGATIVE); KETONE, URINE MANUAL NEGATIVE (NEGATIVE); LEUKOCYTE ESTERASE, URINE MAN NEGATIVE (NEGATIVE); NITRITE, URINE MANUAL NEGATIVE (NEGATIVE); PROTEIN, URINE MANUAL NEGATIVE (NEGATIVE); UROBILINOGEN, URINE MANUAL NORMAL (NORMAL)
[2022-04-10 18:32] LABS: HYALINE CAST, URINE 0-1 /lpf (0-1); SQUAMOUS EPITHELIAL CELL URINE SMALL AMOUNT /hpf (SMALL AMT); WBC, URINE 0-1 /hpf (0-3)
== END ==
LOC: M SFHCPLAZ 16:46
PROVIDERS: ATTEND Physician Assistant
DX: R35.0 Frequency of micturition (principal); R31.9 Hematuria, unspecified

== ENCOUNTER → 2022-05-08 | Outpatient (CLI) | payer MEDICARE, BC ==
[2022-05-08 11:55] LABS: HEMATOCRIT 43.9 % (36.0-47.0); MEAN CORPUSCULAR HEMOGLOBIN 29.6 pg (27.0-33.0); MEAN CORPUSCULAR HGB CONC 34.2 g/dl (32.0-36.5); MEAN CORPUSCULAR VOLUME 86.6 fl (80.0-96.0); PLATELET COUNT, AUTOMATED 294 10^3/uL (150-450); RED BLOOD COUNT 5.07 10^6/uL (4.00-5.40)
[2022-05-08 12:30] LABS: FREE T4 1.34 NG/DL (0.89-1.76)
[2022-05-08 12:31] LABS: TOTAL 25(OH) VITAMIN D 22.8 NG/ML (20.0-100.0)
[2022-05-08 12:32] LABS: VITAMIN B12 LEVEL 1235 PG/ML (211-911)
[2022-05-08 13:01] LABS: HEMOGLOBIN A1c > 14.0 % (4.0-6.0)
[2022-05-08 13:17] LABS: ALBUMIN 2.9 G/DL (3.2-5.2); ALKALINE PHOSPHATASE 106 U/L (46-116); ALT/SGPT 22 U/L (7.0-40); AST/SGOT 14 U/L (<34); BILIRUBIN,TOTAL 0.5 MG/DL (0.3-1.2); BLOOD UREA NITROGEN 34 MG/DL (9-23); CALCIUM LEVEL 9.1 MG/DL (8.3-10.6); CARBON DIOXIDE LEVEL 22 MMOL/L (20-31); CHLORIDE LEVEL 90 MMOL/L (98-107); CHOLESTEROL LEVEL 188 MG/DL (<200); CHOLESTEROL RISK RATIO 6.32 (<5); GLOMERULAR FILTRATION RATE > 60.0 (>45); GLUCOSE, FASTING 596 MG/DL (74-106); HDL CHOLESTEROL 29.7 MG/DL (>40); NON-HDL-C 158 MG/DL; POTASSIUM SERUM 4.3 MMOL/L (3.5-5.1); SODIUM LEVEL 132 MMOL/L (136-145); TRIGLYCERIDES LEVEL 586 MG/DL (<150)
[2022-05-08 13:58] LABS: CREATININE, URINE 33.6 MG/DL
[2022-05-08 13:59] LABS: MAU/CREAT RATIO 23.8 MCG/MG (0.0-30.0)
[2022-05-08 17:33] LABS: APPEARANCE, URINE MANUAL CLEAR (CLEAR); BILIRUBIN, URINE MANUAL NEGATIVE (NEGATIVE); BLOOD URINE MANUAL TRACE (NEGATIVE); COLOR, URINE MANUAL LT YELLOW (YELLOW); GLUCOSE, URINE (UA) MANUAL 4+(1000 MG/DL) mg/dL (NEGATIVE); KETONE, URINE MANUAL 2+ mg/dL (NEGATIVE); LEUKOCYTE ESTERASE, URINE MAN NEGATIVE (NEGATIVE); NITRITE, URINE MANUAL NEGATIVE (NEGATIVE); PROTEIN, URINE MANUAL NEGATIVE (NEGATIVE); SPECIFIC GRAVITY,URINE MANUAL 1.015 (1.002-1.035); UROBILINOGEN, URINE MANUAL NORMAL (NORMAL)
[2022-05-08 18:24] LABS: BACTERIA, URINE SMALL AMOUNT; HYALINE CAST, URINE NONE SEEN /lpf (0-1); SQUAMOUS EPITHELIAL CELL URINE SMALL AMOUNT /hpf (SMALL AMT); YEAST, URINE SMALL AMOUNT
== END ==
LOC: M LAB 11:08
PROVIDERS: ATTEND Internal Medicine Hematology
DX: E11.00 Type 2 diabetes mellitus with hyperosmolarity without nonketotic hyperglycemic-hyperosmolar coma (NKHHC) (principal); I10 Essential (primary) hypertension; Z79.899 Other long term (current) drug therapy

== ENCOUNTER → 2022-08-17 | Outpatient (CLI) | payer MEDICARE ==
[2022-08-17 15:18] LABS: HEMATOCRIT 43.7 % (36.0-47.0); HEMOGLOBIN 13.9 g/dl (12.0-15.5); MEAN CORPUSCULAR HEMOGLOBIN 27.5 pg (27.0-33.0); MEAN CORPUSCULAR HGB CONC 31.8 g/dl (32.0-36.5); MEAN CORPUSCULAR VOLUME 86.4 fl (80.0-96.0); PLATELET COUNT, AUTOMATED 375 10^3/uL (150-450); RED BLOOD COUNT 5.06 10^6/uL (4.00-5.40); WHITE BLOOD COUNT 10.3 10^3/uL (4.0-10.0)
[2022-08-17 15:24] LABS: ALBUMIN 3.1 G/DL (3.2-5.2); ALKALINE PHOSPHATASE 133 U/L (46-116); ALT/SGPT 10 U/L (7.0-40); AST/SGOT 10 U/L (<34); BILIRUBIN,TOTAL 0.3 MG/DL (0.3-1.2); BLOOD UREA NITROGEN 20 MG/DL (9-23); CALCIUM LEVEL 9.5 MG/DL (8.3-10.6); CARBON DIOXIDE LEVEL 32 MMOL/L (20-31); CHLORIDE LEVEL 107 MMOL/L (98-107); CHOLESTEROL LEVEL 109 MG/DL (<200); CHOLESTEROL RISK RATIO 2.86 (<5); CREATININE FOR GFR 0.78 MG/DL (0.55-1.30); GLOMERULAR FILTRATION RATE > 60.0 (>45); GLUCOSE, FASTING 126 MG/DL (74-106); LDL CHOLESTEROL 48.6 MG/DL (<100); POTASSIUM SERUM 3.7 MMOL/L (3.5-5.1); SODIUM LEVEL 144 MMOL/L (136-145); TOTAL PROTEIN 6.5 G/DL (5.7-8.2); TRIGLYCERIDES LEVEL 112 MG/DL (<150)
[2022-08-17 15:25] LABS: THYROID STIMULATING HORMONE 0.916 uIU/ML (0.55-4.78)
[2022-08-17 15:26] LABS: FREE T4 1.19 NG/DL (0.89-1.76); TOTAL 25(OH) VITAMIN D 31.8 NG/ML (20.0-100.0); VITAMIN B12 LEVEL 176 PG/ML (211-911)
[2022-08-17 15:28] LABS: HEMOGLOBIN A1c 6.2 % (4.0-6.0)
[2022-08-17 15:39] LABS: CREATININE, URINE 81.2 MG/DL; MAU/CREAT RATIO 25.8 MCG/MG (0.0-30.0)
== END ==
LOC: M PLALAB 09:54
PROVIDERS: ATTEND Internal Medicine Hematology
DX: E11.00 Type 2 diabetes mellitus with hyperosmolarity without nonketotic hyperglycemic-hyperosmolar coma (NKHHC) (principal); Z79.899 Other long term (current) drug therapy

== ENCOUNTER → 2023-02-26 | Outpatient (CLI) | payer MEDICARE ==
[2023-02-26 18:26] LABS: HEMATOCRIT 40.7 % (36.0-47.0); HEMOGLOBIN 13.3 g/dl (12.0-15.5); MEAN CORPUSCULAR HEMOGLOBIN 26.8 pg (27.0-33.0); MEAN CORPUSCULAR HGB CONC 32.7 g/dl (32.0-36.5); MEAN CORPUSCULAR VOLUME 82.1 fl (80.0-96.0); PLATELET COUNT, AUTOMATED 292 10^3/uL (150-450); RED BLOOD COUNT 4.96 10^6/uL (4.00-5.40); WHITE BLOOD COUNT 17.4 10^3/uL (4.0-10.0)
[2023-02-26 18:51] LABS: CREATININE, URINE 71.1 MG/DL; MAU/CREAT RATIO 140.6 MCG/MG (0.0-30.0)
[2023-02-26 18:57] LABS: ALBUMIN 3.2 G/DL (3.2-5.2); ALKALINE PHOSPHATASE 124 U/L (46-116); ALT/SGPT 11 U/L (7.0-40); AST/SGOT 13 U/L (<34); BLOOD UREA NITROGEN 19 MG/DL (9-23); CALCIUM LEVEL 9.3 MG/DL (8.3-10.6); CARBON DIOXIDE LEVEL 27 MMOL/L (20-31); CHLORIDE LEVEL 100 MMOL/L (98-107); CHOLESTEROL LEVEL 118 MG/DL (<200); CHOLESTEROL RISK RATIO 2.73 (<5); CREATININE FOR GFR 0.72 MG/DL (0.55-1.30); FREE T4 1.18 NG/DL (0.89-1.76); GLOMERULAR FILTRATION RATE > 60.0 (>45); GLUCOSE, FASTING 101 MG/DL (74-106); HDL CHOLESTEROL 43.1 MG/DL (>40); LDL CHOLESTEROL 58.9 MG/DL (<100); NON-HDL-C 74.9 MG/DL; SODIUM LEVEL 137 MMOL/L (136-145); THYROID STIMULATING HORMONE 0.783 uIU/ML (0.55-4.78); TOTAL PROTEIN 6.8 G/DL (5.7-8.2); TRIGLYCERIDES LEVEL 80 MG/DL (<150); VITAMIN B12 LEVEL 1441 PG/ML (211-911)
[2023-02-26 19:07] LABS: HEMOGLOBIN A1c 5.6 % (4.0-6.0)
== END ==
LOC: M PLALAB 16:19
PROVIDERS: ATTEND Internal Medicine Hematology
DX: E11.00 Type 2 diabetes mellitus with hyperosmolarity without nonketotic hyperglycemic-hyperosmolar coma (NKHHC) (principal)

== ENCOUNTER → 2023-03-07 | Outpatient (CLI) | payer MEDICARE ==
[2023-03-07 16:41] LABS: BASO % 0.3 % (0.0-1.0); EOS # 0.1 10^3/uL (0.0-0.5); EOS % 0.6 % (0.0-3.0); HEMATOCRIT 36.2 % (36.0-47.0); HEMOGLOBIN 11.5 g/dl (12.0-15.5); LYMPH # 1.6 10^3/uL (1.5-5.0); MEAN CORPUSCULAR HEMOGLOBIN 26.3 pg (27.0-33.0); MEAN CORPUSCULAR HGB CONC 31.8 g/dl (32.0-36.5); MEAN CORPUSCULAR VOLUME 82.8 fl (80.0-96.0); MONO # 1.3 10^3/uL (0.0-0.8); MONO % 8.9 % (2.0-8.0); NEUTROPHILS # 11.2 10^3/uL (1.5-8.5); NEUTROPHILS % 78.5 % (36.0-66.0); PLATELET COUNT, AUTOMATED 511 10^3/uL (150-450); RED BLOOD COUNT 4.37 10^6/uL (4.00-5.40); WHITE BLOOD COUNT 14.2 10^3/uL (4.0-10.0)
[2023-03-07 16:57] LABS: ERYTHROCYTE SEDIMENTATION RATE 107 mm/hr (0-30)
[2023-03-07 17:11] LABS: CALCIUM LEVEL 8.6 MG/DL (8.3-10.6); CREATININE FOR GFR 1.28 MG/DL (0.55-1.30); GLOMERULAR FILTRATION RATE 44.6 (>45); POTASSIUM SERUM 3.1 MMOL/L (3.5-5.1)
== END ==
LOC: M PLALAB 14:35
PROVIDERS: ATTEND Internal Medicine Hematology
DX: I10 Essential (primary) hypertension (principal)

== ENCOUNTER 2023-03-16 16:56 | Inpatient (IN) | payer MEDICARE ==
[~2023-03-16] VITALS: Ht 170.2 cm; Wt 78.6 kg
[2023-03-16 18:17] LABS: BASO % 0.3 % (0.0-1.0); EOS # 0.2 10^3/uL (0.0-0.5); EOS % 1.8 % (0.0-3.0); HEMATOCRIT 35.9 % (36.0-47.0); HEMOGLOBIN 11.6 g/dl (12.0-15.5); LYMPH # 1.9 10^3/uL (1.5-5.0); LYMPH % 20.6 % (24.0-44.0); MEAN CORPUSCULAR HEMOGLOBIN 26.6 pg (27.0-33.0); MEAN CORPUSCULAR HGB CONC 32.3 g/dl (32.0-36.5); MEAN CORPUSCULAR VOLUME 82.3 fl (80.0-96.0); MONO # 1.2 10^3/uL (0.0-0.8); MONO % 13.3 % (2.0-8.0); NEUTROPHILS # 5.7 10^3/uL (1.5-8.5); NEUTROPHILS % 63.7 % (36.0-66.0); PLATELET COUNT, AUTOMATED 457 10^3/uL (150-450); RED BLOOD COUNT 4.36 10^6/uL (4.00-5.40)
[2023-03-16 18:20] LABS: INR 1.29; PROTHROMBIN TIME 15.7 SECONDS (12.5-14.5)
[2023-03-16] MEDS ORDERED: NS 1,000 ML IV ONE (18:25)
[2023-03-16 18:26] LABS: ERYTHROCYTE SEDIMENTATION RATE 100 mm/hr (0-30)
[2023-03-16 18:27] LABS: C REACTIVE PROTEIN QUANTITATIV 13.6 MG/DL (<1.0)
[2023-03-16 18:29] LABS: ALBUMIN 2.2 G/DL (3.2-5.2); BILIRUBIN,DIRECT 0.2 MG/DL (<0.4); BILIRUBIN,TOTAL 0.5 MG/DL (0.3-1.2); CALCIUM LEVEL 8.7 MG/DL (8.3-10.6); CREATININE FOR GFR 1.37 MG/DL (0.55-1.30); GLOMERULAR FILTRATION RATE 41.2 (>45); POTASSIUM SERUM 3.4 MMOL/L (3.5-5.1); TOTAL PROTEIN 7.2 G/DL (5.7-8.2)
[2023-03-16 18:44] LABS: VENOUS BASE EXCESS 8.3 (-2.0-2.0); VENOUS HCO3 33.9 MMOL/L (23.0-27.0); VENOUS PARTIAL PRESSURE CO2 52.3 mmHg (38.0-50.0); VENOUS PARTIAL PRESSURE O2 27.8 mmHg (30.0-50.0); VENOUS TOTAL CO2 35.5 MMOL/L (24.0-28.0)
[2023-03-16 18:49] LABS: MAGNESIUM LEVEL 2.3 MG/DL (1.8-2.4)
[2023-03-16] MEDS ORDERED: ISOVUE-370 76% 100ML VIAL As Ordered ONE (18:51)
[2023-03-16 18:53] LABS: RHEUMATOID FACTOR QUANT 10.3 IU/ML (<14); THYROXINE (T4) 10.4 UG/DL (4.5-10.9)
[2023-03-16 18:54] LABS: THYROID STIMULATING HORMONE 0.923 uIU/ML (0.55-4.78)
[2023-03-16] MEDS ORDERED: MED REC IN PROGRESS XX SCH (18:55)
[2023-03-16 18:56] LABS: FREE THYROXINE INDEX 4.8 % (1.3-4.8); T UPTAKE 46.1 % (22.5-37.0)
[2023-03-16] MEDS ORDERED: ELIQ2.5T PO (19:14)
[2023-03-16] MEDS ORDERED: ECOT81TA5 PO (19:14)
[2023-03-16] MEDS ORDERED: OMEG1CAP85 PO (19:15)
[2023-03-16] MEDS ORDERED: SEMA0.257 SQ (19:21)
[2023-03-16] MEDS ORDERED: ACET-683 PO (19:21)
[2023-03-16] MEDS ORDERED: MACR100C43 PO (19:21)
[2023-03-16] MEDS ORDERED: VALS1TAB67 PO (19:21)
[2023-03-16] MEDS ORDERED: FAMO20TA PO (19:21)
[2023-03-16] MEDS ORDERED: FISH1CAP26 PO (19:23)
[2023-03-16] MEDS ORDERED: HOME MED LIST COMPLETE! XX SCH (19:25)
[2023-03-16] MEDS ORDERED: cefTRIAXone SOD 2 GM in D5W MINI-BAG PLUS 50 ML IV ONE (21:40)
[2023-03-16] MEDS ORDERED: ACETAMINOPHEN TAB 650MG DOSE (2X325MG) PO PRN (22:30)
[2023-03-16] MEDS ORDERED: SODIUM CHLORIDE 0.9% 1000ML IV STA (23:16)
[2023-03-16 23:50] VITALS: BP 102/60; TEMP 99; O2SAT 96
[2023-03-17] VITALS (26 sets, daily range): BP systolic 90–115; BP diastolic 50–62; TEMP 96.1–98.3; O2SAT 92–99
[2023-03-17] MEDS ORDERED: GLUCAGON INJ 1MG VIAL SC PRN (00:25)
[2023-03-17] MEDS ORDERED: GLUCOSE 4GM CHEW TABLET PO PRN (00:25)
[2023-03-17] MEDS ORDERED: DEXTROSE 50% 50ML SYRINGE IV PRN (00:25)
[2023-03-17] MEDS ORDERED: POTASSIUM CHLORIDE 10MEQ SR TABLET PO ONE (02:00)
[2023-03-17] MEDS: NS 1,000 ML IV SCH ×2 (03:24→17:31)
[2023-03-17 06:29] LABS: HEMATOCRIT 29.9 % (36.0-47.0); HEMOGLOBIN 9.8 g/dl (12.0-15.5); MEAN CORPUSCULAR HEMOGLOBIN 26.8 pg (27.0-33.0); MEAN CORPUSCULAR HGB CONC 32.8 g/dl (32.0-36.5); MEAN CORPUSCULAR VOLUME 81.9 fl (80.0-96.0); PLATELET COUNT, AUTOMATED 370 10^3/uL (150-450); RED BLOOD COUNT 3.65 10^6/uL (4.00-5.40); WHITE BLOOD COUNT 6.8 10^3/uL (4.0-10.0)
[2023-03-17 07:13] LABS: ALBUMIN 1.7 G/DL (3.2-5.2); BILIRUBIN,TOTAL 0.3 MG/DL (0.3-1.2); CALCIUM LEVEL 7.8 MG/DL (8.3-10.6); GLOMERULAR FILTRATION RATE 59.2 (>45); POTASSIUM SERUM 4.5 MMOL/L (3.5-5.1); TOTAL PROTEIN 5.6 G/DL (5.7-8.2)
[2023-03-17] MEDS: FAMOTIDINE 20 MG TAB PO SCH ×2 (08:59→20:27)
[2023-03-17] MEDS: METOPROLOL TART 12.5 MG PER 1/2 TAB PO SCH ×2 (09:00→20:48)
[2023-03-17] MEDS ORDERED: APIXABAN 2.5 MG TAB (ELIQUIS) PO SCH (09:00)
[2023-03-17 10:46] LABS: PROCALCITONIN 0.08 ng/ml
[2023-03-17] MEDS ORDERED: MIDAZOLAM INJ 2MG/2ML VIAL As Ordered ONE (14:44)
[2023-03-17] MEDS ORDERED: ONDANSETRON 4MG 2ML VIAL As Ordered ONE (14:44)
[2023-03-17] MEDS ORDERED: LIDOCAINE 2% 100MG/5ML SDV (FOR ANES.) As Ordered ONE (14:44)
[2023-03-17] MEDS ORDERED: fentaNYL 100 MCG/2 ML INJECTION As Ordered ONE (14:44)
[2023-03-17] MEDS ORDERED: ACETAMINOPHEN 1000MG 100ML IV BAG As Ordered ONE (14:45)
[2023-03-17] MEDS ORDERED: propofoL 200 MG/20 ML VIAL As Ordered ONE (14:45)
[2023-03-17] MEDS ORDERED: ISOVUE-300 61% 100ML VIAL As Ordered ONE (15:13)
[2023-03-17] MEDS ORDERED: KETOROLAC 60MG 2ML VIAL As Ordered ONE (15:57)
[2023-03-17] MEDS ORDERED: LR 1,000 ML IV SCH (16:10)
[2023-03-17] MEDS ORDERED: ONDANSETRON 4MG 2ML VIAL IV PRN (16:10)
[2023-03-17] MEDS ORDERED: oxyCODONE 5MG TAB PO PRN (16:10)
[2023-03-17] MEDS ORDERED: fentaNYL 100 MCG/2 ML INJECTION IV PRN (16:10)
[2023-03-17] MEDS: INSULIN LISPRO (NovoLOG) PER UNIT SC SCH (17:30)
[2023-03-17] MEDS: APIXABAN 2.5 MG TAB (ELIQUIS) PO SCH (20:27)
[2023-03-17] MEDS: SENOKOT S TAB PO SCH (20:49)
[2023-03-17] MEDS ORDERED: cefTRIAXone SOD 1 GM in D5W MINI-BAG PLUS 50 ML IV SCH (21:00)
[2023-03-17] MEDS ORDERED: INSULIN LISPRO (NovoLOG) PER UNIT SC SCH (21:00)
[2023-03-17] MEDS ORDERED: ATORVASTATIN 20 MG TAB PO SCH (21:00)
[2023-03-18] VITALS (20 sets, daily range): BP systolic 90–130; BP diastolic 56–71; TEMP 97–98.2; O2SAT 95–100
[2023-03-18 06:41] LABS: BASO % 0.2 % (0.0-1.0); EOS % 0.4 % (0.0-3.0); HEMATOCRIT 29.9 % (36.0-47.0); HEMOGLOBIN 9.6 g/dl (12.0-15.5); LYMPH # 1.1 10^3/uL (1.5-5.0); MEAN CORPUSCULAR HEMOGLOBIN 26.6 pg (27.0-33.0); MEAN CORPUSCULAR HGB CONC 32.1 g/dl (32.0-36.5); MEAN CORPUSCULAR VOLUME 82.8 fl (80.0-96.0); MONO # 0.5 10^3/uL (0.0-0.8); MONO % 8.4 % (2.0-8.0); NEUTROPHILS # 3.7 10^3/uL (1.5-8.5); NEUTROPHILS % 69.6 % (36.0-66.0); PLATELET COUNT, AUTOMATED 351 10^3/uL (150-450); RED BLOOD COUNT 3.61 10^6/uL (4.00-5.40); WHITE BLOOD COUNT 5.3 10^3/uL (4.0-10.0)
[2023-03-18 07:03] LABS: BLOOD UREA NITROGEN 15 MG/DL (9-23); CALCIUM LEVEL 8.5 MG/DL (8.3-10.6); CARBON DIOXIDE LEVEL 26 MMOL/L (20-31); CHLORIDE LEVEL 104 MMOL/L (98-107); CREATININE FOR GFR 0.77 MG/DL (0.55-1.30); GLOMERULAR FILTRATION RATE > 60.0 (>45); GLUCOSE, FASTING 130 MG/DL (74-106); POTASSIUM SERUM 4.2 MMOL/L (3.5-5.1); SODIUM LEVEL 139 MMOL/L (136-145)
[2023-03-18 07:10] LABS: PROCALCITONIN <0.04 ng/ml
[2023-03-18] MEDS: METOPROLOL TART 12.5 MG PER 1/2 TAB PO SCH (09:00)
[2023-03-18] MEDS ORDERED: ASPIRIN 81MG ENTERIC TABLET PO SCH (09:00)
[2023-03-18] MEDS ORDERED: CEFD300CAP PO (09:10)
[2023-03-18] MEDS ORDERED: PROBCAP19 PO (09:10)
[2023-03-18] MEDS ORDERED: METO25TA4 PO (09:10)
[2023-03-18] MEDS: INSULIN LISPRO (NovoLOG) PER UNIT SC SCH ×2 (09:28→12:00)
[2023-03-18] MEDS: SENOKOT S TAB PO SCH (09:28)
[2023-03-18] MEDS: FAMOTIDINE 20 MG TAB PO SCH (09:30)
[2023-03-18] MEDS: APIXABAN 2.5 MG TAB (ELIQUIS) PO SCH (09:30)
[2023-03-19 21:11] LABS: ANTINUCLEAR ANTIBODIES DIRECT Negative (Negative); CYCLIC CITRULLINATED PEPTIDE 2 units (0-19)
== END 2023-03-18 13:00 | disposition home or self-care (01) | DRG 872 ==
LOC: M ED 16:56 → M ED INP 22:28 → ENRESERV 22:57 → CANRESERV 22:57 → ENRESERV 23:08 → M PCU 23:44
PROVIDERS: ADMIT Family Medicine; ATTEND Internal Medicine
PROC: 0T764DZ Dilation of Right Ureter with Intraluminal Device, Percutaneous Endoscopic Approach (ICD-10-PCS; principal; 2023-03-17 13:00)
DX: A41.9 Sepsis, unspecified organism (principal); N39.0 Urinary tract infection, site not specified; N17.9 Acute kidney failure, unspecified; N13.30 Unspecified hydronephrosis; N10 Acute pyelonephritis; N13.0 Hydronephrosis with ureteropelvic junction obstruction; I71.20 Thoracic aortic aneurysm, without rupture, unspecified; B34.8 Other viral infections of unspecified site; D35.00 Benign neoplasm of unspecified adrenal gland; Z88.0 Allergy status to penicillin; Z88.2 Allergy status to sulfonamides; Z79.899 Other long term (current) drug therapy; Z79.82 Long term (current) use of aspirin; I48.0 Paroxysmal atrial fibrillation; I10 Essential (primary) hypertension; Z86.73 Personal history of transient ischemic attack (TIA), and cerebral infarction without residual deficits; Z79.01 Long term (current) use of anticoagulants; Z87.891 Personal history of nicotine dependence; N20.0 Calculus of kidney; K57.90 Diverticulosis of intestine, part unspecified, without perforation or abscess without bleeding; N83.202 Unspecified ovarian cyst, left side

== ENCOUNTER → 2023-04-12 | Outpatient (REF) | payer MEDICARE ==
[~2023-04-12] MED LIST changes: +ACET-683 PO; +CEFD300CAP PO; +ECOT81TA5 PO; +ELIQ2.5T PO; +FAMO20TA PO; +FISH1CAP26 PO; +MACR100C43 PO; +OXYB10TA23 PO; +PROBCAP19 PO; +SEMA0.257 SQ; +VALS1TAB67 PO
[2023-04-12 14:59] LABS: APPEARANCE, URINE CLOUDY (CLEAR); BACTERIA, URINE AUTO NEGATIVE (NEGATIVE); BILIRUBIN, URINE AUTO NEGATIVE (NEGATIVE); BLOOD, URINE BLOOD 2+ (NEGATIVE); COLOR, URINE AMBER (YELLOW); GLUCOSE, URINE (UA) AUTO NEGATIVE (NEGATIVE); KETONE, URINE AUTO NEGATIVE (NEGATIVE); LEUKOCYTE ESTERASE, URINE AUTO 1+ (NEGATIVE); NITRITE, URINE AUTO NEGATIVE (NEGATIVE); PROTEIN, URINE AUTO 1+ mg/dL (NEGATIVE); RBC, URINE AUTO 2 /HPF (0-3); SPECIFIC GRAVITY URINE AUTO 1.011 (1.002-1.035); SQUAMOUS EPITHELIAL CELL UR AU 0 /HPF (0-6); UROBILINOGEN, URINE AUTO 0.2 mg/dL (0.0-2.0); WBC, URINE AUTO 1 /HPF (0-3)
== END ==
LOC: M SMT 13:03
PROVIDERS: ATTEND Urology
DX: N39.0 Urinary tract infection, site not specified (principal)

== ENCOUNTER → 2023-04-14 | Outpatient (CLI) | payer MEDICARE ==
[2023-04-14 09:01] LABS: HEMATOCRIT 36.7 % (36.0-47.0); HEMOGLOBIN 11.8 g/dl (12.0-15.5); MEAN CORPUSCULAR HEMOGLOBIN 26.8 pg (27.0-33.0); MEAN CORPUSCULAR HGB CONC 32.2 g/dl (32.0-36.5); MEAN CORPUSCULAR VOLUME 83.4 fl (80.0-96.0); PLATELET COUNT, AUTOMATED 387 10^3/uL (150-450); WHITE BLOOD COUNT 8.5 10^3/uL (4.0-10.0)
[2023-04-14 09:25] LABS: BLOOD UREA NITROGEN 13 MG/DL (9-23); CALCIUM LEVEL 9.2 MG/DL (8.3-10.6); CARBON DIOXIDE LEVEL 25 MMOL/L (20-31); CHLORIDE LEVEL 108 MMOL/L (98-107); CREATININE FOR GFR 0.73 MG/DL (0.55-1.30); GLOMERULAR FILTRATION RATE > 60.0 (>45); GLUCOSE, FASTING 103 MG/DL (74-106); POTASSIUM SERUM 3.7 MMOL/L (3.5-5.1); SODIUM LEVEL 140 MMOL/L (136-145)
== END ==
LOC: M LAB 08:03
PROVIDERS: ATTEND Urology
DX: Z01.818 Encounter for other preprocedural examination (principal); N13.5 Crossing vessel and stricture of ureter without hydronephrosis; N39.0 Urinary tract infection, site not specified

== ENCOUNTER 2023-04-20 08:30 | Day surgery (SDC) | payer MEDICARE ==
[~2023-04-20] VITALS: Ht 170.2 cm; Wt 77.1 kg
[~2023-04-20 08:30] MED LIST changes: +ceFAZolin SOD 2 GM in IV 1 EA IV ONE
[2023-04-20] MEDS ORDERED: LR 1,000 ML IV SCH (08:45)
[2023-04-20] MEDS ORDERED: FAMO1TAB11 PO (09:24)
[2023-04-20] MEDS ORDERED: NITR100C2 PO (09:24)
[2023-04-20] MEDS ORDERED: LIDOCAINE 2% 100MG/5ML SDV (FOR ANES.) As Ordered ONE (09:25)
[2023-04-20] MEDS ORDERED: propofoL 200 MG/20 ML VIAL As Ordered ONE (09:25)
[2023-04-20] MEDS ORDERED: ONDANSETRON 4MG 2ML VIAL As Ordered ONE ×2 (09:25→10:42)
[2023-04-20] MEDS ORDERED: MIDAZOLAM INJ 2MG/2ML VIAL As Ordered ONE (09:26)
[2023-04-20] MEDS ORDERED: fentaNYL 100 MCG/2 ML INJECTION As Ordered ONE (09:26)
[2023-04-20] MEDS ORDERED: ISOVUE-300 61% 100ML VIAL As Ordered ONE (09:51)
[2023-04-20] MEDS ORDERED: MYRB50TA PO (10:26)
[2023-04-20] MEDS ORDERED: CIPR-249 PO (10:26)
[2023-04-20] MEDS ORDERED: METOCLOPRAMIDE INJ 10MG/2ML VIAL As Ordered ONE (10:42)
[2023-04-20] MEDS ORDERED: ONDANSETRON 4MG 2ML VIAL IV PRN (12:10)
[2023-04-20] MEDS ORDERED: oxyCODONE 5MG TAB PO PRN (12:10)
[2023-04-20] MEDS ORDERED: MORPHINE 2 MG/ML 1ML VIAL IV PRN (12:10)
[2023-04-20] MEDS ORDERED: fentaNYL 100 MCG/2 ML INJECTION IV PRN (12:10)
[2023-04-20] MEDS ORDERED: ACETAMINOPHEN 1000MG 100ML IV BAG As Ordered ONE (12:25)
[2023-04-20] MEDS ORDERED: PERCOCET 5MG/325MG TAB PO PRN (15:15)
[2023-04-20 16:37] VITALS: BP 150/82; TEMP 97.4; O2SAT 94
== END 2023-04-20 16:50 | disposition home or self-care (01) ==
LOC: M SDC 08:30
PROVIDERS: ATTEND Urology
DX: N13.0 Hydronephrosis with ureteropelvic junction obstruction (principal); I10 Essential (primary) hypertension; E11.9 Type 2 diabetes mellitus without complications; I48.91 Unspecified atrial fibrillation; K21.9 Gastro-esophageal reflux disease without esophagitis; Z88.0 Allergy status to penicillin; Z88.2 Allergy status to sulfonamides; Z87.891 Personal history of nicotine dependence; Z86.73 Personal history of transient ischemic attack (TIA), and cerebral infarction without residual deficits; F41.9 Anxiety disorder, unspecified; Z79.899 Other long term (current) drug therapy
CPT/HCPCS: 52332; 52341; 52352; 76000; C1769; C1894; C2617; J0131; J0690; J1100; J2250; J2405; J2765; J3010; Q9967

== ENCOUNTER → 2023-05-12 | Outpatient (REF) | payer MEDICARE ==
[~2023-05-12] MED LIST changes: +CIPR-249 PO; +FAMO1TAB11 PO; +MYRB50TA PO; +NITR100C2 PO; -ceFAZolin SOD 2 GM in IV 1 EA IV ONE
[2023-05-12 18:51] LABS: APPEARANCE, URINE HAZY (CLEAR); BACTERIA, URINE AUTO NEGATIVE (NEGATIVE); BILIRUBIN, URINE AUTO NEGATIVE (NEGATIVE); BLOOD, URINE BLOOD 3+ (NEGATIVE); COLOR, URINE RED (YELLOW); GLUCOSE, URINE (UA) AUTO NEGATIVE (NEGATIVE); KETONE, URINE AUTO NEGATIVE (NEGATIVE); LEUKOCYTE ESTERASE, URINE AUTO 2+ (NEGATIVE); MUCUS, URINE SMALL (NEGATIVE); NITRITE, URINE AUTO NEGATIVE (NEGATIVE); PROTEIN, URINE AUTO 2+ mg/dL (NEGATIVE); RBC, URINE AUTO TNTC /HPF (0-3); SPECIFIC GRAVITY URINE AUTO 1.015 (1.002-1.035); SQUAMOUS EPITHELIAL CELL UR AU 13 /HPF (0-6); UROBILINOGEN, URINE AUTO 0.2 mg/dL (0.0-2.0); WBC, URINE AUTO 171 /HPF (0-3)
== END ==
LOC: M LAB REF 18:21
PROVIDERS: ATTEND Physician Assistant Medical
DX: N39.0 Urinary tract infection, site not specified (principal)

== ENCOUNTER → 2023-07-05 | Outpatient (CLI) | payer MEDICARE | LOC: M RAD 09:55 | PROVIDERS: ATTEND Urology | DX: N13.5 Crossing vessel and stricture of ureter without hydronephrosis (principal) ==

== ENCOUNTER → 2023-08-16 | Outpatient (CLI) | payer MEDICARE ==
[~2023-08-16] MED LIST changes: +FUROSEMIDE 20MG/2ML VIAL As Ordered ONE
== END ==
LOC: M RAD 07:02
PROVIDERS: ATTEND Urology
DX: N13.30 Unspecified hydronephrosis (principal)
CPT/HCPCS: 78708; A9562; J1940

== ENCOUNTER → 2023-08-23 | Outpatient (CLI) | payer MEDICARE ==
[~2023-08-23] MED LIST changes: -FUROSEMIDE 20MG/2ML VIAL As Ordered ONE
[2023-08-23 13:02] LABS: HEMATOCRIT 42.2 % (36.0-47.0); HEMOGLOBIN 13.3 g/dl (12.0-15.5); MEAN CORPUSCULAR HGB CONC 31.5 g/dl (32.0-36.5); MEAN CORPUSCULAR VOLUME 79.5 fl (80.0-96.0); PLATELET COUNT, AUTOMATED 338 10^3/uL (150-450); RED BLOOD COUNT 5.31 10^6/uL (4.00-5.40)
[2023-08-23 13:07] LABS: ALBUMIN 3.4 G/DL (3.2-5.2); ALKALINE PHOSPHATASE 189 U/L (46-116); ALT/SGPT 15 U/L (7.0-40); AST/SGOT 12 U/L (<34); BILIRUBIN,TOTAL 0.5 MG/DL (0.3-1.2); BLOOD UREA NITROGEN 18 MG/DL (9-23); CALCIUM LEVEL 9.4 MG/DL (8.3-10.6); CARBON DIOXIDE LEVEL 28 MMOL/L (20-31); CHLORIDE LEVEL 105 MMOL/L (98-107); CHOLESTEROL LEVEL 125 MG/DL (<200); CHOLESTEROL RISK RATIO 2.88 (<5); CREATININE FOR GFR 0.72 MG/DL (0.55-1.30); FREE T4 1.22 NG/DL (0.89-1.76); GLOMERULAR FILTRATION RATE > 60.0 (>45); GLUCOSE, FASTING 96 MG/DL (74-106); HDL CHOLESTEROL 43.3 MG/DL (>40); LDL CHOLESTEROL 56.9 MG/DL (<100); NON-HDL-C 81.7 MG/DL; POTASSIUM SERUM 4.1 MMOL/L (3.5-5.1); SODIUM LEVEL 140 MMOL/L (136-145); TOTAL PROTEIN 6.8 G/DL (5.7-8.2); TRIGLYCERIDES LEVEL 124 MG/DL (<150)
[2023-08-23 13:08] LABS: THYROID STIMULATING HORMONE 1.591 uIU/ML (0.55-4.78); TOTAL 25(OH) VITAMIN D 27.2 NG/ML (20.0-100.0); VITAMIN B12 LEVEL 820 PG/ML (211-911)
[2023-08-23 13:15] LABS: HEMOGLOBIN A1c 5.6 % (4.0-6.0)
== END ==
LOC: M PLALAB 10:35
PROVIDERS: ATTEND Internal Medicine Hematology
DX: E11.00 Type 2 diabetes mellitus with hyperosmolarity without nonketotic hyperglycemic-hyperosmolar coma (NKHHC) (principal); Z79.01 Long term (current) use of anticoagulants; Z79.82 Long term (current) use of aspirin